=== PATIENT | female | born 1995 | race Caucasian/White ===

== ENCOUNTER → 2018-02-16 11:55 | Outpatient (CLI) | payer OTHER, SELFPAY ==
[2018-02-16 13:39] LABS: HIV - WCH Non-Reactive (Nonreactive)
[2018-02-16 16:22] LABS: Probe Check PASS
[2018-02-16 16:40] LABS: Chlamydia Trachomatis by PCR POSITIVE (Negative)
[2018-02-17 07:49] LABS: Neisserai gonorrhoeae by PCR Negative (Negative); Sample Adequacy Control PASS; Specimen Processing Control PASS
[2018-02-18 08:12] LABS: HCV Quant. RNA PCR HCV Not Detected IU/mL (.)
[2018-02-18 11:28] LABS: HEPATITIS B SURFACE AG Negative (Negative); HSV 1 IgG < 0.91 index (0.00-0.90); HSV 2 IgG < 0.91 index (0.00-0.90)
[2018-02-20 05:01] LABS: Rapid Plasmin Reagin (RPR) NONREACTIVE (NONREACTIVE)
== END ==
PROVIDERS: Visit Provider Nurse Practitioner Women's Health
DX: Z11.3 Encounter for screening for infections with a predominantly sexual mode of transmission (principal)
CPT/HCPCS: 36415; 86592; 86695; 86696; 86703; 87340; 87491; 87522; 87591

== ENCOUNTER → 2018-02-16 19:22 | Outpatient (CLI) | payer OTHER, SELFPAY ==
[2018-02-20 13:07] LABS: HPV Reflexed? NOT INDICATED
== END ==
PROVIDERS: Visit Provider Nurse Practitioner Women's Health
DX: Z12.4 Encounter for screening for malignant neoplasm of cervix (principal); Z11.3 Encounter for screening for infections with a predominantly sexual mode of transmission
CPT/HCPCS: 87491; 87591; 88175; G0145

== ENCOUNTER → 2018-06-08 14:21 | Outpatient (CLI) | payer OTHER, SELFPAY ==
[2018-06-08 15:42] LABS: Absolute Lymphocyte Count 2.33 X10^3/ul (0.83-4.51); Absolute Neutrophil Count 1.6 X10^3/uL (2.0-7.7); Basophil# 0.03 X10^3/uL; Basophil% 0.6 % (0-1); Eosinophils% 2.1 % (0-5); Hematocrit 39.6 % (37-47); Lymphocyte # 2.33 X10^3/ul (4.0); Lymphocyte % 48.3 % (19-41); Mean Corp Hgb Conc 32.8 g/gl (32-36); Mean Corpuscular Volume 88.4 fL (81-99); Mean Platelet Vol. 11.8 fl (6.2-12.0); Monocyte# 0.76 X10^3/uL; Monocyte% 15.8 % (0-10); Neutrophil % 33.2 % (47-70); Platelet Count 214 K/mm3 (150-450); RBC Distribution Width SD 42.1 fl (35.1-43.9); Red Blood Count 4.48 M/mm3 (4.2-5.4); White Blood Count 4.8 K/mm3 (4.4-11.0)
[2018-06-08 15:44] LABS: POSITIVE COUNT NO; POSITIVE DIFFERENTIAL NO; POSITIVE MORPHOLOGY NO
[2018-06-08 16:10] LABS: Ferritin 40 ng/mL (8-252); T4 Free Direct 0.96 ng/dL (0.76-1.46); Thyroid Stim Hormone (TSH) 3.43 uIU/mL (0.358-3.74)
== END ==
PROVIDERS: Visit Provider Physician Assistant
DX: L64.8 Other androgenic alopecia (principal); L21.8 Other seborrheic dermatitis
CPT/HCPCS: 36415; 82728; 84439; 84443; 85025

== ENCOUNTER → 2019-06-02 11:41 | Outpatient (CLI) | payer OTHER, SELFPAY ==
--- NOTE | 2019-06-02 11:43 | US_ITS ---
STUDY: FIRST TRIMESTER OBSTETRICAL ULTRASOUND REASON FOR EXAM: Female, 24 years old. Dates. LMP: February 12, 2019. TECHNIQUE: TECHNICAL QUALITY: Adequate. PRIOR ULTRASOUND: None. FINDINGS: There is visualization of a single gestational sac in a normal intrauterine position. The mean sac diameter (MSD) measures 4.5 cm, indicating an estimated gestational age (EGA) of 10 weeks, 2 days. The gestational sac shape is within normal limits. There is a visualized yolk sac. The yolk sac measures 5 mm. The placenta is non-visualized. There is visualization of a live embryo. The crown-rump length (CRL) measures 3.7 cm, indicating an estimated gestational age (EGA) of 10 weeks, 4 days. There is demonstrated cardiac activity with a heart rate of 174 bpm. The estimated gestation age (EGA) by LMP is 15 weeks, 5 days. The estimated date of delivery (AMAIRANI) by LMP is November 19, 2019. The estimated gestation age (EGA) by US is 10 weeks, 3 days. The estimated date of delivery (AMAIRANI) by US is December 26, 2019. The uterus measures 11.8 x 8.6 x 5.6 cm. There is no demonstrated uterine fibroid. The cervix is closed. The right ovary measures 3.3 x 2.0 x 2.4 cm. There are several small peripheral follicles of the right ovary without a dominant cyst. There is no visualized right adnexal mass or complex lesion. The left ovary measures 2.7 x 2.5 x 1.4 cm. There are a few small follicles of the left ovary without a dominant cyst. There is no visualized left adnexal mass or complex lesion. There is no fluid in the cul de sac. Incidental note of punctate debris floating in the urinary bladder. US/Init OB < 14Wks US IMPRESSION: 1. Single living intrauterine with estimated gestational age of 10 weeks, 3 days. This is moderately behind the expected age by given LMP. Estimated delivery by today's study is December 26, 2019. 2. Unremarkable ovaries. 3. Incidental note of punctate debris floating in the urinary bladder. Electronically Signed: Micah Karimi MD at 14:01 EDT , Service support ,
== END ==
LOC: US 11:42
PROVIDERS: Referring Provider Obstetrics & Gynecology; Visit Provider Obstetrics & Gynecology
DX: Z78.9 Other specified health status (principal)
CPT/HCPCS: 76801

== ENCOUNTER → 2019-06-16 09:19 | Outpatient (CLI) | payer OTHER, SELFPAY ==
[2019-06-16 09:16] VITALS: BMI 20.5
[2019-06-16 09:44] LABS: Absolute Neutrophil Count 5.1 X10^3/uL (2.0-7.7); Basophil# 0.04 X10^3/uL; Basophil% 0.5 % (0-1); Eosinophils% 1.4 % (0-5); Hematocrit 34.9 % (37-47); Hemoglobin 12.3 g/dL (12.0-15.0); Lymphocyte % 19.2 % (19-41); Mean Corp Hgb Conc 35.2 g/dL (32-36); Mean Corpuscular Hgb 30.1 pg (27.0-32.0); Mean Corpuscular Volume 85.3 fL (81-99); Mean Platelet Vol. 10.7 fl (6.2-12.0); Monocyte# 0.66 X10^3/uL; Monocyte% 9.1 % (0-10); NRBC Flagged by Analyzer 0 % (0-5); Neutrophil # 5.06 X10^3/uL (2.7-7.7); Neutrophil % 69.4 % (47-70); Platelet Count 219 K/mm3 (150-450); RBC Distribution Width CV 13.3 % (11.6-14.6); RBC Distribution Width SD 40.9 fl (35.1-43.9); Red Blood Count 4.09 M/mm3 (4.2-5.4); White Blood Count 7.3 K/mm3 (4.4-11.0)
[2019-06-16 11:13] LABS: HIV - WCH Non-Reactive (Nonreactive); Hepatitis B Surface Antigen Non-Reactive (Nonreactive); Rubella IgG 193.9 IU/mL
[2019-06-16 18:28] LABS: Chlamydia Trachomatis by PCR Negative (Negative); Neisserai gonorrhoeae by PCR Negative (Negative); Probe Check PASS; Sample Adequacy Control PASS; Specimen Processing Control PASS
[2019-06-18 01:38] LABS: Rapid Plasmin Reagin (RPR) NONREACTIVE (NONREACTIVE)
== END ==
PROVIDERS: Nurse Practitioner Women's Health; Referring Provider Obstetrics & Gynecology; Visit Provider Obstetrics & Gynecology
DX: Z34.00 Encounter for supervision of normal first pregnancy, unspecified trimester (principal)
CPT/HCPCS: 36415; 85025; 86592; 86703; 86762; 86850; 86900; 86901; 87086; 87340; 87491; 87591

== ENCOUNTER → 2019-08-16 15:57 | Outpatient (CLI) | payer OTHER, SELFPAY ==
[2019-08-13 08:43] VITALS: BMI 20.5
--- NOTE | 2019-08-16 15:59 | US_ITS ---
STUDY: SECOND AND THIRD TRIMESTER OBSTETRICAL ULTRASOUND REASON FOR EXAM: Female, 24 years old anatomy LMP: TECHNIQUE: Transabdominal TECHNICAL QUALITY: Adequate. PRIOR ULTRASOUND: June 02, 2019 FINDINGS: There is a single intrauterine fetus. The fetus is in a cephalic presentation. There is demonstrated cardiac activity with a heart rate of 147 bpm. There is a normal amniotic fluid volume.. The placenta is anterior There are Grade 0 placental changes. The cervix measures 3.3 cm in length. The bilateral adnexal regions are normal. BIOMETRY: BPD: 5 cm: 21 weeks, 2 days HC: 18.9 cm: 21 weeks, 2 days AC: 16 cm: 21 weeks, 1 days FL: 3.8 cm: 22 weeks, 1 days CI: 0.77 FL/BPD: 0.75 FL/HC: FL/AC: 0.24 HC/AC: 1.18 age by current US: 21 weeks, 4 days. AMAIRANI by current US: December 23, 2019. Estimated weight: 428 grams, +/- 63 grams, 40 %. age by prior US: 21 weeks, 1 days. AMAIRANI by prior US: December 26, 2019. Age by LMP: 21 weeks, 4 days. AMAIRANI by LMP: December 23, 2019. ANATOMY: Cranium: Normal lateral ventricles. Normal choroid plexus. Normal cerebellum. Normal cisterna magna. Normal face, nose and lips. Chest: Normal 4-chamber heart. Abdomen/Pelvis: Normal diaphragm. Normal stomach. Normal abdominal wall. Normal cord insertion. Normal 3 vessel cord. Normal kidneys. Normal bladder. Spine: Normal cervical spine. Normal thoracic spine. Normal lumbar spine. Normal sacrum. Extremities: Normal bilateral upper extremities. Normal bilateral lower extremities. US/OB Anatomy Scan IMPRESSION: Viable intrauterine gestation approximately 21-22 weeks gestational age. No gross anomalies at this time Electronically Signed: Ray Richardson MD at 18:53 EDT , Service support ,
== END ==
PROVIDERS: Referring Provider Obstetrics & Gynecology; Visit Provider Obstetrics & Gynecology
DX: Z36.89 Encounter for other specified antenatal screening (principal)
CPT/HCPCS: 76805

== ENCOUNTER → 2019-10-05 10:09 | Outpatient (CLI) | payer OTHER, SELFPAY ==
[2019-10-05 10:01] VITALS: BMI 20.5
[2019-10-05 10:58] LABS: Absolute Lymphocyte Count 1.74 X10^3/uL (0.83-4.51); Absolute Neutrophil Count 8.3 X10^3/uL (2.0-7.7); Basophil# 0.05 X10^3/uL; Basophil% 0.4 % (0-1); Eosinophil# 0.14 X10^3/uL; Eosinophils% 1.3 % (0-5); Hematocrit 34.3 % (37-47); Hemoglobin 11.6 g/dL (12.0-15.0); Lymphocyte # 1.74 X10^3/ul (4.0); Lymphocyte % 15.6 % (19-41); Mean Corp Hgb Conc 33.8 g/dL (32-36); Mean Corpuscular Hgb 30.3 pg (27.0-32.0); Mean Corpuscular Volume 89.6 fL (81-99); Monocyte# 0.77 X10^3/uL; Monocyte% 6.9 % (0-10); NRBC Flagged by Analyzer 0 % (0-5); Neutrophil % 74.5 % (47-70); Platelet Count 183 K/mm3 (150-450); RBC Distribution Width CV 13.1 % (11.6-14.6); RBC Distribution Width SD 42.8 fl (35.1-43.9); Red Blood Count 3.83 M/mm3 (4.2-5.4); White Blood Count 11.1 K/mm3 (4.4-11.0)
[2019-10-05 11:02] LABS: Glucose Challenge Gest 1H 50g 141 mg/dL (70-140)
== END ==
PROVIDERS: Nurse Practitioner Women's Health; Referring Provider Obstetrics & Gynecology; Visit Provider Obstetrics & Gynecology
DX: Z34.00 Encounter for supervision of normal first pregnancy, unspecified trimester (principal)
CPT/HCPCS: 36415; 82950; 85025

== ENCOUNTER → 2019-10-12 09:58 | Outpatient (CLI) | payer OTHER, SELFPAY ==
[2019-10-05 10:01] VITALS: BMI 20.5
[2019-10-12 11:46] LABS: Glucose GTT-Gestation. Fasting 72 mg/dL (<105)
[2019-10-12 11:47] LABS: Glucose GTT-Gestational 1 Hr 143 mg/dL (<190)
[2019-10-12 13:16] LABS: Glucose GTT-Gestational 2 Hr 99 mg/dL (<165)
[2019-10-12 14:07] LABS: Glucose GTT-Gestational 3 Hr 73 L (<145)
== END ==
PROVIDERS: Referring Provider Nurse Practitioner Women's Health; Visit Provider Nurse Practitioner Women's Health
DX: O99.810 Abnormal glucose complicating pregnancy (principal); Z3A.00 Weeks of gestation of pregnancy not specified
CPT/HCPCS: 36415; 82951; 82952

== ENCOUNTER → 2019-11-30 | Outpatient (CLI) | payer OTHER, MEDICAID, SELFPAY ==
[2019-11-30 13:24] VITALS: BMI 20.5
== END | disposition home or self-care (01) ==
LOC: LABSPEC 15:44
PROVIDERS: Visit Provider Obstetrics & Gynecology
DX: Z34.93 Encounter for supervision of normal pregnancy, unspecified, third trimester (principal)
CPT/HCPCS: 87081

== ENCOUNTER → 2019-12-17 14:30 | Outpatient (CLI) | payer OTHER, MEDICAID, SELFPAY ==
[2019-12-17 11:11] VITALS: BMI 20.5
--- NOTE | 2019-12-17 14:37 | US_ITS ---
STUDY: SECOND AND THIRD TRIMESTER OBSTETRICAL ULTRASOUND - LIMITED REASON FOR EXAM: Female, 24 years old. Gross. LMP: February 12, 2019 PRIOR ULTRASOUND: August 16, 2019 and June 02, 2019 TECHNIQUE: Transabdominal TECHNICAL QUALITY: Adequate. FINDINGS: There is a single intrauterine fetus. The fetus is in a cephalic presentation. There is demonstrated cardiac activity with a heart rate of 139 bpm. There is a normal amniotic fluid volume. The largest amniotic fluid pocket measures 3.93 cm. The amniotic fluid index (JAVIER) is 9.48 cm. The placenta is anterior in location and is not low lying. There are Grade 2 placental changes. The cervix is obscured BIOMETRY: BPD: 8.74 cm: 35 weeks, 2 days HC: 32.5 cm: 36 weeks, 5 days AC: 33.49 cm: 37 weeks, 2 days FL: 7.21 cm: 36 weeks, 6 days Age by LMP: 44 weeks, 2 days. AMAIRANI by LMP: November 19, 2019. age by prior US: 39 weeks, 0 days. AMAIRANI by prior US: December 26, 2019. age by current US: 37 weeks, 1 days. AMAIRANI by current US: January 06, 2020. Estimated weight: 3082 grams, +/- 456 grams, 23 percentile. US/OB Limited With Biometrics IMPRESSION: 1. Live single intrauterine at 37 weeks, 1 day. AMAIRNAI is January 06, 2020. 2. Greater than one week behind expected gestational age by initial ultrasound. 3. EFW 3082 g. 4. JAVIER 9.48 cm. 5. Anterior grade 2 placenta. 6. Vertex presentation. Electronically Signed: Mak Parr DO at 23:47 EST Tel [phone], Service support ,
== END ==
PROVIDERS: Referring Provider Obstetrics & Gynecology; Visit Provider Obstetrics & Gynecology
DX: Z34.02 Encounter for supervision of normal first pregnancy, second trimester (principal)
CPT/HCPCS: 76816

== ENCOUNTER 2019-12-23 17:20 | Inpatient (IN) | payer OTHER, MEDICAID, SELFPAY ==
[2019-12-23 14:11] VITALS: BMI 20.5
[2019-12-23 17:38] VITALS: BMI 27.6
[2019-12-23] MEDS: Lactated Ringers 1,000 ML 50 ML IV (17:40)
--- NOTE | 2019-12-23 17:46 | PCM.HPOB.BLA ---
- Problem List (1) Abnormal glucose affecting Status: Acute Comment: Normal 3hr (2) Oligohydramnios antepartum Status: Acute (3) Status: Acute Qualifiers: Weeks of gestation: 38 weeks Qualified Code(s): Z3A.38 - 38 weeks gestation of Comment: Declines carrier and genetic screen, afp screening. Anatomy US normal (4) Supervision of normal first Status: Acute Qualifiers: Trimester: second trimester Qualified Code(s): Z34.02 - Encounter for supervision of normal first , second trimester Comment: PRR girl AMAIRANI: 12/25/19 BF: Padilla (5) Uterine size-date discrepancy in third trimester Status: Acute Comment: growth us nl History and Physical Date of Admission: 12/23/19 Intake Vital Signs 12/23/19 Height 5 ft 8 in 12/23/19 Weight: 183 lb 12/23/19 BMI 27.8 12/23/19 BP 122/88 H Intake Visit Reasons: 39 WK OB Chief Complaint: est ob Is patient in pain?: No Allergies No Known Allergies Allergy (Verified 12/23/19 13:58) Medications vitamin#30 30 mg iron-10 mg iron-folic acid 1 mg-omg3 capsule cap PO cap 07/16/19 [History Confirmed 12/23/19] Last Menstral Period: 02/12/19 Zika: Zika virus screening: Negative : No PFSH PFSH Medical History Alopecia (Acute) Surgical History No significant past medical history (Acute) Social History (Updated 12/23/19 @ 16:[address] Brenda Ramirez MD) Smoking Status: Never smoker second hand exposure: Yes alcohol intake: current details: social substance use type: does not use caffeine: Yes what type of physical activity do you participate in: walking frequency: 1-2 times per week seatbelt use: always do you feel safe at home: Yes additional social history: [facility] Pregancy History 2 Elective abortions 1 Hx Para Spontaneous abortions Hx # Term Pregnancies Ectopic pregnancies Hx # Pregnancies Multiple births # of living children 0 HPI 39 WK OB: Details: CATERINA WATSON is a 24 year old who presents for routine OB visit. denies vb lof admits good fm. bedside JAVIER performed and 5 cm seen. gorwt scan last week nl growth with 9 cm javier. OB Visit AMAIRANI Calculator Estimated Delivery Date Method Current WG Current Estimate 12/25/19 Ultrasound #1 39w 5d Expected Delivery Route/Plan Labor Preferences- labor support person: Padilla pain management options preferred: epidural cut cord/dad catch: yes : yes PP control planned: [] discussed possible routes of delivery and associated risks: [] special requests: [] Specific Issue/Plans flu vaccine: yes tdap vaccine: no rhogam: na LARC form signed: yes Problem list reviewed and updated with the most current plan of care details and appropriate orders placed. Relevant counseling for the gestational age provided. Continue routine care and follow up unless otherwise noted in visit notes/problem list details Initial Weight: 132 lb Date EGA Weight BP Urine Prot Glucose FHR FuHt Pres Dilation Effaced St Visit Note 06/16/19 12w 4d 132 lb (+0 oz) 120/78 162 NOB. Resolving nausea. No bleeding. 07/16/19 16w 6d 139 lb 8 oz (+7 lb 8 oz) 124/82 160 no vb some cramping 08/13/19 20w 6d 152 lb 8 oz (+20 lb 8 oz) 120/80 Negative Negative 154 NO FM yet. No anatomy US yet-next week. NO VB, LOF 09/17/19 25w 6d 162 lb 6 oz (+30 lb 6 oz) 122/78 Negative Negative 142 25 Good FM. No VB, LOF 10/05/19 28w 3d 165 lb 2 oz (+33 lb 2 oz) 130/87 Negative Negative 135 28 Good FM. No VB, LOF. @8 wk labs. Declines tdap. 10/20/19 30w 4d 169 lb 4 oz (+37 lb 4 oz) 114/75 Negative Negative 135 30 no vb lof good fm no regular ctx 11/02/19 32w 3d 172 lb 6 oz (+40 lb 6 oz) 113/77 Negative Negative 140 30 S- no vb lof good fm no regular ctx 11/16/19 34w 3d 171 lb 8 oz (+39 lb 8 oz) 121/74 Negative Negative 160 34 SM- no vb lof good fm no regular ctx 11/30/19 36w 3d 174 lb (+42 lb) 120/80 Negative Negative 150 36 Sm- no vb lof good fm no reg ctx gbs today 12/10/19 37w 6d 176 lb (+44 lb) 116/68 Negative Negative 140 37 Cephalic SM- no vb lof good fm no regular ctx 12/17/19 38w 6d 181 lb (+49 lb) 100/60 Negative Negative 140 36 Cephalic SM- no vb lof good fm no regular ctx get growth us 12/23/19 39w 5d 183 lb (+51 lb) 122/88 140 38 Cephalic 1.5 70 -1 SM- no vb lof good fm no regular ctx Notes Visit Date: 12/23/19 ??No visit notes to display Visit Date: 12/17/19 ??No visit notes to display Visit Date: 12/10/19 ??No visit notes to display Visit Date: 11/30/19 ??No visit notes to display Visit Date: 11/16/19 ??No visit notes to display Visit Date: 11/02/19 ??No visit notes to display Visit Date: 10/20/19 ??No visit notes to display Visit Date: 10/05/19 ??Good FM. No VB, LOF. @8 wk labs. Declines tdap. ??WILLIAM Daniel on 10/05/19 Visit Date: 09/17/19 ??Good FM. No VB, LOF ??WILLIAM Daniel on 09/17/19 Visit Date: 08/13/19 ??NO FM yet. No anatomy US yet-next week. NO VB, LOF ??WILLIAM Daniel on 08/13/19 Visit Date: 07/16/19 ??no vb some cramping ??Brenda Ramirez MD on 07/16/19 Visit Date: 06/16/19 ??NOB. Resolving nausea. No bleeding. ??WILLIAM Daniel on 06/16/19 ACOG First Trimester First Trimester: Desire for , Alcohol, Tobacco Cessation, Illicit/Recreational Drug/Substance Use, Intimate Partner Violence, Barriers to care, Unstable Housing, Communication Barriers, Environmental/Work Hazards, Anticipated Course of Care, Toxoplasmosis Precations, Use of Any medications, Sexual activity, Exercise, Dental Care, Sauna/Hot tub use, Seat Belt use, Childbirth classes/Hospital facilities, , Travel, Indications for US and Screening for Aneuploidy Second Trimester Second Trimester: Signs and Symptoms of Labor, Selecting a care provider, Reproductive Life Planning, Care Planning, Tobacco Cessation, Depression/Anxiety and Intimate Partner Violence Third Trimester Third Trimester: Pain Management Plans, Labor support person(s), Immediate Larc, Movement Monitoring and Feeding Yes ; discussed Trial of Labor after Counseling or discussed Circumcision preference Diagnostics Diagnostics Diagnostics Gest Glucose Tolerance MG/DL 10/12/19 Glucose 1 Hr 50 gm 141 mg/dL (70-140) H 10/05/19 Hgb 11.6 g/dL (12.0-15.0) L 10/05/19 Hct 34.3 % (37-47) L 10/05/19 Details: HIV: Urine Culture: Sequential Screen: NIPT Screen: ROS Const Reports system reviewed and no additional complaints, except as docu Card Reports system reviewed and no additional complaints, except as docu Resp Reports system reviewed and no additional complaints, except as docu GI Reports system reviewed and no additional complaints, except as docu, Reports nausea Reports system reviewed and no additional complaints, except as docu Musc Reports system reviewed and no additional complaints, except as docu Exam Const General: cooperative, healthy appearing, comfortable, anxious HENMT Head: normal to inspection Nose: external nose normal Face and sinus: normal facial exam Neck Neck: normal visual inspection, full ROM, no lymphadenopathy Thyroid: thyroid normal Chest Chest palpation & inspection: normal inspection of the chest Resp Effort & Inspection: normal respiratory effort GI Inspection: normal to inspection Palpation: soft, other (gravid uterus) Other: vertex and appropriate size for gestational age Other: Cervical Exam: Extrem General: pedal edema Assessment & Plan Problems 1. Abnormal glucose affecting O99.810 Normal 3hr 2. Supervision of normal first Z34.00 PRR girl AMAIRANI: 12/25/19 BF: Padilla 3. Z34.90 Declines carrier and genetic screen, afp screening. Anatomy US normal 4. Uterine size-date discrepancy in third trimester O26.843 growth us nl 5. Oligohydramnios antepartum O41.00X0 Plan javier 5 cm plan IOL today Patient presents IOL, plan management for , pitocin/AROM after FB. Pain management: plans epidural. GBS negative. Management of any complications: oligo I have reviewed the [facility] and made any clinically relevant updates. Coding Level of Care Code OB Routine Diagnoses Abnormal glucose affecting O99.810 Supervision of normal first Z34.00 Z34.90 Uterine size-date discrepancy in third trimester O26.843 Oligohydramnios antepartum O41.00X0
[2019-12-23] MEDS: 0.9% Normal Saline Single 100 ML IV.SOLN. IY (17:51)
[2019-12-23 17:58] LABS: Absolute Lymphocyte Count 1.76 X10^3/uL (0.83-4.51); Absolute Neutrophil Count 6.6 X10^3/uL (2.0-7.7); Basophil# 0.03 X10^3/uL; Basophil% 0.3 % (0-1); Eosinophil# 0.07 X10^3/uL; Eosinophils% 0.8 % (0-5); Hematocrit 35.3 % (37-47); Hemoglobin 12.2 g/dL (12.0-15.0); Lymphocyte # 1.76 X10^3/ul (4.0); Lymphocyte % 18.9 % (19-41); Mean Corp Hgb Conc 34.6 g/dL (32-36); Mean Corpuscular Hgb 29.8 pg (27.0-32.0); Mean Corpuscular Volume 86.1 fL (81-99); Mean Platelet Vol. 11.8 fl (6.2-12.0); Monocyte# 0.83 X10^3/uL; Monocyte% 8.9 % (0-10); NRBC Flagged by Analyzer 0 % (0-5); Neutrophil # 6.56 X10^3/uL (2.7-7.7); Neutrophil % 70.3 % (47-70); Platelet Count 179 K/mm3 (150-450); RBC Distribution Width CV 13.3 % (11.6-14.6); RBC Distribution Width SD 41.5 fl (35.1-43.9); White Blood Count 9.3 K/mm3 (4.4-11.0)
[2019-12-23] MEDS: Oxytocin 30 units/NS 500 ml 30 UNITS/500 ML IV.SOLN IV (19:30)
[2019-12-24] MEDS: Acetaminophen 325 MG Tablet PO (04:13)
[2019-12-24] MEDS: Lactated Ringers 500 ML 999 ML IV ×2 (04:45→07:09)
[2019-12-24] MEDS: fentaNYL-bupivacaine (epidural) 100 ML BAG EPIDURAL (05:38)
[2019-12-24] MEDS: Lactated Ringers 1,000 ML 200 ML IV (06:33)
[2019-12-24] MEDS: Ondansetron 4 MG/2 ML Vial IV (06:40)
[2019-12-24] MEDS: Oxytocin 30 units/NS 500 ml 30 UNITS/500 ML IV.SOLN 334 UNITS IV (09:25)
--- NOTE | 2019-12-24 09:39 | OP.PCM_ITS ---
Problem List (1) Abnormal glucose affecting Status: Acute Comment: Normal 3hr (2) Oligohydramnios antepartum Status: Acute (3) Status: Acute Qualifiers: Weeks of gestation: 38 weeks Qualified Code(s): Z3A.38 - 38 weeks gestation of Comment: Declines carrier and genetic screen, afp screening. Anatomy US normal (4) Supervision of normal first Status: Acute Qualifiers: Trimester: second trimester Qualified Code(s): Z34.02 - Encounter for supervision of normal first , second trimester Comment: PRR girl AMAIRANI: 12/25/19 BF: Padilla (5) Uterine size-date discrepancy in third trimester Status: Acute Comment: growth us nl Vaginal Delivery Maternal Presentation: Medically Indicated Induction iol oligo Method of Induction: Pitocin, [facility] Reason for Induction: - - oligo Amniotic Membrane Rupture Type: Artificial Amniotic Fluid Description: Clear Final AMAIRANI: 12/25/19 Gestational age: 39 Weeks and 6 Days Date of Procedure: 12/24/19 Pre-Operative Diagnosis: iol oligo Post-Operative Diagnosis: same Surgery/ Procedure Performed: Spontaneous Vaginal Delivery Type of Anesthesia: Epidural Description of Procedure: Patient began pushing and delivered the head in the DHARMESH presentation. The head was delivered atraumatically. The anterior and posterior shoulders delivered without complication followed by the rest of the and the infant was placed on the maternal abdomen. Delayed cord clamping was employed for approximately 60 seconds. Cord was clamped and cut and gentle traction was applied to the cord and the placenta delivered spontaneously immediately following it was noted to be intact with three-vessel cord. The perineum and vagina were inspected and noted to have a small first-degree perineal laceration that was repaired in the usual fashion with 3-0 Vicryl Rapide. EBL was 200 cc. Patient and tolerated delivery well. Presentation: DHARMESH Placental Delivery Description: Spontaneous Placenta Disposition: [facility] Cord Vessel Description: 3 Vessels Cord Entanglement: None Estimated Blood Loss: 200 A gender: Female Episiotomy Description: None Laceration: Perineal Extension/lac, 1st degree Medications given after delivery: IV Pitocin Complications: None Multi Select Codes - Urinary/Genital Urinary/Genital CPT Codes: 70543 Vaginal Delivery [facility]
[2019-12-24] MEDS: Naproxen 250 MG Tablet 500 MG PO (16:18)
[2019-12-24 16:20] VITALS: BP 107/62; PULSE 90; TEMP 37.4; O2SAT 96
[2019-12-24 20:30] VITALS: BP 110/76; PULSE 79; RESP 14; TEMP 36.6; O2SAT 98
[2019-12-24 23:38] VITALS: BP 116/69; PULSE 88; RESP 16; TEMP 36.6
[2019-12-25 03:13] VITALS: BP 118/64; PULSE 105; RESP 14; TEMP 36.8
[2019-12-25] MEDS: Acetaminophen 500 MG Tablet 1000 MG PO (03:48)
--- NOTE | 2019-12-25 07:38 | DCINST_ITS ---
Discharge Diet: No Restrictions Discharge Activity: Return to Normal Activity, May not drive while taking narcotic pain medications., May Shower May resume sexual activity in: 4-6 weeks Call your doctor if your incision/area has: Continuous Slow Oozing, Sudden Increased Bleeding, Increased Pain/ Swelling, Increased Redness, Foul Smelling Discharge Additional Instructions: If you experience any of the following, contact your healthcare provider. * Bleeding that soaks a pad every hour for 2 hours * Fever 100.4 or higher * Unrelieved incision or abdominal pain * Swelling, redness, discharge or bleeding from your incision or episiotomy site * Your incision begins to separate * Problems urinating (including inability to urinate or burning while urinating). * Visual changes * Severe headache * Flu-like symptoms * Pain or redness in one of both of your breasts * Pain, warmth, tenderness or swelling in your legs, especially the calf area * Frequent nausea and vomiting * Symptoms of depression or anxiety If you experience any of the following, call 911 or go to the nearest Emergency Room. * Chest pain * Problems breathing * Seizure activity * Partial or complete paralysis of a body part, slurred speech, weakness or drooping of the face, or a sudden inability to walk or hold your balance Allergies/Adverse Reactions: Allergies No Known Allergies Allergy (Verified 12/23/19 17:38) Medications to take at Discharge vitamin#30 30 mg iron-10 mg iron-folic acid 1 mg-omg3 capsule 1 cap PO DAILY cap 07/16/19 Please Follow Up With: Brenda Ramirez MD - [phone] When: Call to make an appointment with your doctor in 6 weeks. If you had elevated Blood pressure or 4th degree laceration you will need to be seen in 2 weeks. Primary Care Physician: Care Physician,No Primary [Primary Care Provider] - Test Results: Test results from this visit will be discussed in further detail at your follow- up appointment, if applicable.
--- NOTE | 2019-12-25 07:38 | PCM.PN.OB ---
Subjective: doing well no complaints pain controlled no CP SOB N V ambulating well tolerating po lochia moderate, going well - Physical Exam Vitals/I&O's: Vital Signs Temp Pulse Resp BP Pulse Ox 98.2 F 105 H 14 118/64 98 12/25/19 03:13 12/25/19 03:13 12/25/19 03:13 12/25/19 03:13 12/24/19 20:30 Oxygen Delivery Method Room Air Weight: 181 lb 7.047 oz Body Mass Index (BMI) 27.6 Intake and Output for Last 24 Hours 12/23/19 12/24/19 12/25/19 23:59 23:59 23:59 Intake Total 17.13 / .13 4297.24 / 4297.24 Output Total 400 / 400 Balance . / . 3897.24 / 3897.24 General: Alert, Oriented x3 Current Medications Acetaminophen (Tylenol) 1,000 mg PO Q8H PRN PRN PRN Reason: Pain Score 1-3/10 Last Admin: 12/25/19 03:48 Dose: 1,000 mg Documented by: Bisacodyl (Dulcolax) 10 mg RECTAL UD PRN PRN Reason: If no BM Dibucaine (Dibucaine) 1 applic TOPICAL TID PRN PRN; Protocol PRN Reason: Discomfort Hydrocortisone (Hytone) 1 applic TOPICAL TID PRN PRN; Protocol PRN Reason: Discomfort Methylergonovine Maleate (Methergine) 0.2 mg IM X1 PRN PRN Reason: Excess bleeding/uterine atony Naproxen (Naprosyn) 500 mg PO Q8H PRN PRN PRN Reason: Pain Score 1-3/10 Last Admin: 12/24/19 16:18 Dose: 500 mg Documented by: Ondansetron HCl (Zofran) 4 mg IV Q4H PRN PRN PRN Reason: Nausea Oxycodone HCl (Oxyir) 5 - 10 mg PO Q4H PRN PRN PRN Reason: Pain Score 4-10/10 Senna/Docusate Sodium (Senokot-S, Irma-Colace) 1 - 2 tablet PO DAILY PRN PRN PRN Reason: Constipation Simethicone (Mylicon) 80 mg PO PCHS PRN PRN Reason: Indigestion/Stomach pain Sodium Chloride () 5 - 15 ml IV UD PRN PRN Reason: SALINE FLUSH Medical Necessity - Tobacco Use Smoking Status: Never smoker Assessment/Plan All Active Problems (Last Reviewed 12/23/19 @ 13:58 by Heavenly Irby) Oligohydramnios antepartum (Acute) Uterine size-date discrepancy in third trimester (Acute) Abnormal glucose affecting (Acute) Supervision of normal first (Acute) (Acute) s/p PPD # 1 1. routine post delivery care 2. breast feeding- support given 3. rh positive 4. rubella immune
--- NOTE | 2019-12-25 07:38 | PCM.DCVAG ---
Discharge Diet: No Restrictions Discharge Activity: Return to Normal Activity, May not drive while taking narcotic pain medications., May Shower May resume sexual activity in: 4-6 weeks Call your doctor if your incision/area has: Continuous Slow Oozing, Sudden Increased Bleeding, Increased Pain/ Swelling, Increased Redness, Foul Smelling Discharge Additional Instructions: If you experience any of the following, contact your healthcare provider. Bleeding that soaks a pad every hour for 2 hours Fever 100.4 or higher Unrelieved incision or abdominal pain Swelling, redness, discharge or bleeding from your incision or episiotomy site Your incision begins to separate Problems urinating (including inability to urinate or burning while urinating). Visual changes Severe headache Flu-like symptoms Pain or redness in one of both of your breasts Pain, warmth, tenderness or swelling in your legs, especially the calf area Frequent nausea and vomiting Symptoms of depression or anxiety If you experience any of the following, call 911 or go to the nearest Emergency Room. Chest pain Problems breathing Seizure activity Partial or complete paralysis of a body part, slurred speech, weakness or drooping of the face, or a sudden inability to walk or hold your balance Allergies/Adverse Reactions: Allergies No Known Allergies Allergy (Verified 12/23/19 17:38) Medications to take at Discharge vitamin#30 30 mg iron-10 mg iron-folic acid 1 mg-omg3 capsule 1 cap PO DAILY cap 07/16/19 Please Follow Up With: Brenda Ramirez MD - [phone] When: Call to make an appointment with your doctor in 6 weeks. If you had elevated Blood pressure or 4th degree laceration you will need to be seen in 2 weeks. Primary Care Physician: Care Physician,No Primary [Primary Care Provider] - Test Results: Test results from this visit will be discussed in further detail at your follow-up appointment, if applicable.
[2019-12-25] MEDS: Naproxen 250 MG Tablet 500 MG PO (09:02)
[2019-12-25 10:00] VITALS: BP 111/65; PULSE 82; RESP 16; TEMP 37.1
[2019-12-25 15:38] VITALS: BP 123/84; PULSE 100; RESP 12; TEMP 36.8
--- NOTE | 2019-12-25 18:47 | NURSING ---
1715 Discharged to home with baby via wheelchair to car. Baby in carseat, pink, active. Pt states she wants to go home and feels good enough and able to care for herself and her baby.
== END 2019-12-25 17:15 | disposition home or self-care (01) | DRG 807 ==
PROVIDERS: Admitting Provider Obstetrics & Gynecology; Referring Provider Obstetrics & Gynecology; Visit Provider Obstetrics & Gynecology
DX: O41.03X0 Oligohydramnios, third trimester, not applicable or unspecified (principal); Z37.0 Single live birth; O70.0 First degree perineal laceration during delivery; O99.814 Abnormal glucose complicating childbirth; O26.843 Uterine size-date discrepancy, third trimester; Z3A.39 39 weeks gestation of pregnancy
CPT/HCPCS: 59025; 59050; 85025; 86850; 86900; 86901; 99218; J7120; G0378; J2405

== ENCOUNTER → 2021-03-20 | Outpatient (CLI) | payer MEDICAID, SELFPAY ==
[2021-03-20 13:41] VITALS: BMI 24.2
[2021-03-23 10:15] LABS: HPV Reflexed? NOT INDICATED
== END | disposition home or self-care (01) ==
LOC: LABSPEC 16:42
PROVIDERS: Referring Provider Nurse Practitioner Women's Health; Visit Provider Nurse Practitioner Women's Health
DX: Z12.4 Encounter for screening for malignant neoplasm of cervix (principal); N89.8 Other specified noninflammatory disorders of vagina; R30.0 Dysuria
CPT/HCPCS: 87070; 87077; 87086; 87205; 88175; G0145

== ENCOUNTER 2022-01-15 08:15 | Outpatient (CLI) | payer MEDICAID, SELFPAY ==
[2022-01-18 12:48] LABS: Gonococcus By Nucleic Acid AMP Negative (Negative)
[2022-01-18 12:50] LABS: Chlamydia By Nucleic Acid AMP Positive (Negative)
== END 2022-01-15 23:59 | disposition home or self-care (01) ==
LOC: LABSPEC 01-16 08:16
PROVIDERS: Visit Provider Nurse Practitioner Women's Health
DX: Z11.3 Encounter for screening for infections with a predominantly sexual mode of transmission (principal); N76.0 Acute vaginitis
CPT/HCPCS: 87070; 87205; 87491; 87591

== ENCOUNTER 2022-01-18 11:39 | Outpatient (CLI) | payer MEDICAID, SELFPAY ==
--- NOTE | 2022-01-18 11:40 | US_ITS ---
STUDY: ULTRASOUND OF THE FEMALE PELVIS - COMPLETE REASON FOR EXAM: Female, 26 years old. Pain LMP: 12/31/2021 TECHNIQUE: Transabdominal and Transvaginal TECHNICAL QUALITY: Adequate. COMPARISON: None. FINDINGS: The uterus is anteverted and is tilted to the left side of the pelvis. The uterus measures 9.3 x 6.8 x 3.4 cm. Normal uterine cervix. The endometrium measures 7 mm in thickness, and is heterogeneous (striated). There is no demonstrated endometrial mass. There is no demonstrated myometrial mass. I.U.D. - The patient does not have an I.U.D. The right ovary is visualized. The right ovary measures 1.9 x 1.8 x 2.2 cm. There is no right ovarian cyst or ovarian mass. There is no visualized right adnexal mass or complex lesion. There is normal arterial and normal venous vascularity. The left ovary is visualized. The left ovary measures 4.8 x 2.4 x 3.0 cm. There is a 2.9 cm simple cyst. There is normal arterial and normal venous vascularity. There is minimal fluid in the cul-de-sac. The bladder is sonographically normal US/Transvaginal Non- IMPRESSION: No suspicious sonographic findings, simple left ovarian cyst, no specific follow-up needed. Small amount of free fluid in the dependent pelvis Electronically Signed: Micah Dove MD at 17:20 EDT ,
--- NOTE | 2022-01-18 11:40 | US_ITS ---
STUDY: ULTRASOUND OF THE FEMALE PELVIS - COMPLETE REASON FOR EXAM: Female, 26 years old. Pain LMP: 12/31/2021 TECHNIQUE: Transabdominal and Transvaginal TECHNICAL QUALITY: Adequate. COMPARISON: None. FINDINGS: The uterus is anteverted and is tilted to the left side of the pelvis. The uterus measures 9.3 x 6.8 x 3.4 cm. Normal uterine cervix. The endometrium measures 7 mm in thickness, and is heterogeneous (striated). There is no demonstrated endometrial mass. There is no demonstrated myometrial mass. I.U.D. - The patient does not have an I.U.D. The right ovary is visualized. The right ovary measures 1.9 x 1.8 x 2.2 cm. There is no right ovarian cyst or ovarian mass. There is no visualized right adnexal mass or complex lesion. There is normal arterial and normal venous vascularity. The left ovary is visualized. The left ovary measures 4.8 x 2.4 x 3.0 cm. There is a 2.9 cm simple cyst. There is normal arterial and normal venous vascularity. There is minimal fluid in the cul-de-sac. The bladder is sonographically normal US/Pelvic (Non ) IMPRESSION: No suspicious sonographic findings, simple left ovarian cyst, no specific follow-up needed. Small amount of free fluid in the dependent pelvis Electronically Signed: Micah Dove MD at 17:20 EDT ,
== END 2022-01-18 23:59 | disposition home or self-care (01) ==
LOC: US 11:39
PROVIDERS: Referring Provider Nurse Practitioner Women's Health; Visit Provider Nurse Practitioner Women's Health
DX: N94.6 Dysmenorrhea, unspecified (principal)
CPT/HCPCS: 76830; 76856; 93976

== ENCOUNTER 2022-06-25 16:43 | Day surgery (SDC) | payer MEDICAID, SELFPAY ==
[2022-06-25] VITALS (11 sets, daily range): BP systolic 113–157; BP diastolic 62–99; PULSE 69–96; RESP 16–18; TEMP 36.6–37.2; O2SAT 94–100; BMI 21.1
--- NOTE | 2022-06-25 16:52 | CT_ITS ---
STUDY: CT ABDOMEN AND PELVIS WITHOUT CONTRAST REASON FOR EXAM: Female, 27 years old. Pain RADIATION DOSAGE (If Supplied By Facility): CTDIvol = ( 6.16 ) mGy, DLP = ( 293.99 ) mGycm TECHNIQUE: Transaxial images were obtained from the dome of the diaphragm to the symphysis pubis without oral contrast, and without intravenous contrast. Sagittal and coronal images were reconstructed. Individualized dose optimization techniques were used for this CT. COMPARISON: None. FINDINGS: The visualized lung bases are unremarkable. The visualized portions of the heart are within normal limits. Normal liver. Normal gallbladder and extrahepatic biliary system. Normal spleen. Normal pancreas. Normal bilateral adrenal glands. Punctate nonobstructing nephrolith. Normal left kidney. Normal visualized stomach. Normal small intestine. Normal colon. The appendix is visualized and appears normal. Normal abdominal aorta. Normal inferior vena cava. Normal retroperitoneum. Normal urinary bladder. Normal abdominal wall. Normal osseous structures. CT/Abdomen/Pelvis without Cont IMPRESSION: Punctate nonobstructing nephrolith on the right. No acute disease. Sensitivity limited without IV and oral contrast. Electronically Signed: Angel Luis Reynolds MD at 17:59 EDT ,
--- NOTE | 2022-06-25 16:53 | EDS_ITS ---
HPI HPI - GI History of Present Illness Chief Complaint: Abd Pain Detail of Chief Complaint: Abdominal pain that started about an hour ago Informant: patient Narrative Narrative: Patient presents the emergency department complaint of abdominal pain started about an hour ago. Patient was drying off after taking a shower and had sudden onset of severe lower abdomen pain. Pain somewhat positional worse with certain movements. She denies nausea or vomiting. She denies fevers. She denies recent illness otherwise. She is not had pain like this before. Pain does not radiate to her back. She denies urinary symptoms. Her last menstrual period was 5 days ago. Patient rates her pain an 8 out of 10. Prior similar symptoms: No PFSH PFSH Medical History (Updated 06/25/22 @ 20:[address] Emi Gruber, ) Alopecia Home Medications metronidazole 500 mg tablet 500 mg PO BID #14 tabs 01/15/22 [Rx Last Taken Unknown] tranexamic acid 650 mg tablet (Lysteda) 1,300 mg PO TID #60 tabs 01/15/22 [Rx Last Taken Unknown] doxycycline monohydrate 100 mg capsule 100 mg PO BID #28 caps 01/18/22 [Rx Last Taken Unknown] Allergy/AdvReac Type Severity Reaction Status Date / Time No Known Allergies Allergy Verified 06/25/22 16:44 Surgical History No significant past medical history Social History Smoking Status: Never smoker second hand exposure: Yes alcohol intake: current details: social substance use type: does not use caffeine: No what type of physical activity do you participate in: none seatbelt use: always do you feel safe at home: Yes additional social history: [facility]- Home health care ROS ROS ED Review of Systems ROS Unobtainable: other Constitutional Constitutional ED: Reports lethargy; Denies chills, fever(s), sweats or weight loss Eyes Eyes: Denies blurry vision, change in vision or diplopia ENT ENT ED: Denies rhinorrhea or sore throat Cardiovascular Cardiovascular: Denies chest pain, orthopnea or racing heartbeat Respiratory/Chest Respiratory/Chest: Denies cough, dyspnea, dyspnea on exertion, orthopnea or sputum Gastrointestinal Gastrointestinal: Reports abdominal pain; Denies diarrhea, nausea or vomiting Genitourinary Genitourinary ED: Denies dysuria, hematuria or urinary frequency Musculoskeletal Musculoskeletal: Denies arthralgias, back pain, myalgias or neck pain Integumentary Denies abscess, Abrasions or rash Neurologic Neurologic: Denies headache(s) or weakness Psychiatric Psychiatric: Denies anxiety, depression or suicidal thoughts Endocrine Endocrinology: Denies polydipsia, polyphagia or polyuria Hematologic/Lymphatic Hematologic/Lymphatic: Denies easy bleeding, easy bruising or lymphadenopathy Allergic/Immunologic Allergic/Immunologic ED: Denies mouth swelling, tongue swelling or urticaria EXAM Physical Exam Const Vital Signs: 06/25/22 16:43 06/25/22 19:09 Temperature 97.9 F Temperature Source Temporal Pulse Rate 82 Respiratory Rate 18 16 Blood Pressure 144/95 H Blood Pressure Mean 111 Pulse Ox 99 Oxygen Delivery Method Room Air Room Air Positive well nourished and well developed General Appearance ED: well developed and NAD HEENT Reports TM's clear and moist mucous membranes normocephalic and atraumatic; Negative for trauma or tenderness Tympanic Membrane ED: Yes TM's clear Eyes PERRL and EOMs intact bilaterally General Eye ED: Negative for pale conjunctiva or scleral icterus Neck no lymphadenopathy, supple and no JVD General: Negative for tenderness Chest Wall inspection of chest normal and palpation of chest normal Chest: Negative for tenderness Resp normal respiratory effort and clear to auscultation bilaterally Effort and Inspection: Negative for respiratory distress or pain with movement Auscultation: Negative for rhonchi, wheezes or diminished lung sounds Cardio regular rate, regular rhythm, S1 normal heart sound, S2 normal heart sound and no murmurs Peripheral Pulses: pulses 2+ throughout GI normal to inspection, nondistended, normoactive bowel sounds, soft to palpation, non-distended and no masses GI Narrative: Tenderness to palpation over right lower quadrant and suprapubic region with guarding. There is no rebound, rigidity, or peritoneal signs. Back/Spine no CVA tenderness and no thoracic nor lumbar tenderness Extremity normal to inspection General Extremety ED: Negative for edema General Extremity: Negative for edema Neuro oriented x3, CN's II-XII intact bilaterally, no sensory deficits noted and gait normal Sensorium / Orientation: awake, alert, oriented to person, oriented to place and oriented to time Motor Exam: strength 5/5 throughout and strength abnormal Psych mental status grossly normal Skin no rashes or lesions noted and no wounds MDM MDM MDM Narrative Medical decision making narrative: IV line established on arrival. Patient was medicated with morphine, Toradol, and Zofran. Patient had good pain relief with that but continues to complain of pain. Initially lab work obtained was unremarkable other than a slightly elevated white count of 11.9. Lactate was normal. Serum did return p ositive. She had had a CT scan of the abdomen pelvis without contrast that was essentially unremarkable. I did order a quantitative hCG and it was 1008. Urinalysis was unremarkable. Pelvic ultrasound obtained was read by radiology as no intrauterine . Complex right ovarian mass. Moderate complex fluid within the cul-de-sac may represent hemorrhage and ectopic not ruled out. At this point I did discuss case with [employer]ATOR physician on-call Dr. Cartagena who will present to the emergency department to evaluate patient for surgical intervention. Lab Data Attestation: I reviewed the patient's lab results. Labs: Laboratory Results - last 24 hr 06/25/22 06/25/22 06/25/22 17:00 17:00 17:00 WBC 11.9 H RBC 4.48 Hgb 13.4 Hct 38.9 MCV 86.8 MCH 29.9 MCHC 34.4 RDW Std Deviation 41.3 RDW Coeff of [place] 13.2 Plt Count 236 MPV 11.2 Immature Gran % (Auto) 0.400 Neut % (Auto) 77.1 H Lymph % (Auto) 15.6 L [place] % (Auto) 5.6 Eos % (Auto) 0.8 Baso % (Auto) 0.5 Absolute Neuts (auto) 9.2 H Absolute Lymphs (auto) 1.86 Nucleated RBC % 0 Sodium 141 Potassium 3.7 Chloride 108 H Carbon Dioxide 27.0 Anion Gap 6 BUN 15 Creatinine 0.76 Estim Creat Clear Calc 114.86 Est GFR (MDRD) Af Amer 118 Est GFR (MDRD) Non-Af 97 BUN/Creatinine Ratio 19.6 Glucose 102 Lactic Acid 0.7 Calcium 9.1 HCG, Quant Serum , Qual Urine Color Urine Clarity Urine pH Ur Specific [place] Urine Protein Urine Glucose (UA) Urine Ketones Urine Occult Blood Urine Nitrite Urine Bilirubin Urine Urobilinogen Ur Leukocyte Esterase Urine RBC Urine WBC Ur Squamous Epith Cells Ur Transition Epith Cell Urine Bacteria Urine Mucus Blood Type 08/06/25/22 06/25/22 17:00 17:00 18:57 WBC RBC Hgb Hct MCV MCH MCHC RDW Std Deviation RDW Coeff of [place] Plt Count MPV Immature Gran % (Auto) Neut % (Auto) Lymph % (Auto) [place] % (Auto) Eos % (Auto) Baso % (Auto) Absolute Neuts (auto) Absolute Lymphs (auto) Nucleated RBC % Sodium Potassium Chloride Carbon Dioxide Anion Gap BUN Creatinine Estim Creat Clear Calc Est GFR (MDRD) Af Amer Est GFR (MDRD) Non-Af BUN/Creatinine Ratio Glucose Lactic Acid Calcium HCG, Quant 1008 H Serum , Qual POSITIVE H Urine Color Straw Urine Clarity Clear Urine pH 7.0 Ur Specific [place] 1.010 Urine Protein Negative Urine Glucose (UA) Normal Urine Ketones Negative Urine Occult Blood Negative Urine Nitrite Negative Urine Bilirubin Negative Urine Urobilinogen Normal Ur Leukocyte Esterase Negative Urine RBC 0 SEEN Urine WBC 0 SEEN Ur Squamous Epith Cells 0-5 SEEN Ur Transition Epith Cell 0 SEEN Urine Bacteria 0 SEEN Urine Mucus 0 SEEN Blood Type 06/25/22 19:05 WBC RBC Hgb Hct MCV MCH MCHC RDW Std Deviation RDW Coeff of [place] Plt Count MPV Immature Gran % (Auto) Neut % (Auto) Lymph % (Auto) [place] % (Auto) Eos % (Auto) Baso % (Auto) Absolute Neuts (auto) Absolute Lymphs (auto) Nucleated RBC % Sodium Potassium Chloride Carbon Dioxide Anion Gap BUN Creatinine Estim Creat Clear Calc Est GFR (MDRD) Af Amer Est GFR (MDRD) Non-Af BUN/Creatinine Ratio Glucose Lactic Acid Calcium HCG, Quant Serum , Qual Urine Color Urine Clarity Urine pH Ur Specific [place] Urine Protein Urine Glucose (UA) Urine Ketones Urine Occult Blood Urine Nitrite Urine Bilirubin Urine Urobilinogen Ur Leukocyte Esterase Urine RBC Urine WBC Ur Squamous Epith Cells Ur Transition Epith Cell Urine Bacteria Urine Mucus Blood Type O POSITIVE Radiography Diagnostic Testing: Clinical Impression(s) from Imaging Studies Abdomen/Pelvis CT 06/25/22 16:52 IMPRESSION: Punctate nonobstructing nephrolith on the right. No acute disease. Sensitivity limited without IV and oral contrast. Electronically Signed: Angel Luis Reynolds MD at 17:59 EDT Reading Location ID and State: [address] [place] [address] , Service support , Obstetrics Ultrasound 06/25/22 17:55 IMPRESSION: No intrauterine . Complex right ovarian mass. Moderate complex fluid within the cul-de-sac may represent hemorrhage. Ectopic not excluded. Debris noted within the bladder may represent hemorrhage or infection. Electronically Signed: Angel Luis Reynolds MD at 20:13 EDT Reading Location ID and State: [facility] [place] , Service [place] , Discharge Plan Triage Chief Complaint: Abd Pain ED Provider: Emi Gruber Dx/Rx/DC Orders Clinical Impression: Abdominal pain, Ectopic Prescriptions: No Action tranexamic acid [Lysteda] 650 mg tablet 1,300 mg PO TID Qty: 60 2RF metronidazole 500 mg tablet 500 mg PO BID Qty: 14 0RF doxycycline monohydrate 100 mg capsule 100 mg PO BID Qty: 28 0RF Primary Care Provider: Care Physician,No Primary Referrals: Care Physician,No Primary [Primary Care Provider] - Disposition Disposition: Acute Care [facility]
[2022-06-25] MEDS: Ondansetron 4 MG/2 ML Vial IV (17:04)
[2022-06-25] MEDS: Morphine 4 MG/ML Syringe IV (17:04)
[2022-06-25] MEDS: Ketorolac 15 MG/ML Vial IV (17:05)
[2022-06-25] MEDS: 0.9% Normal Saline 1,000 ML 125 ML IV (17:06)
[2022-06-25 17:17] LABS: Absolute Lymphocyte Count 1.86 X10^3/uL (0.83-4.51); Absolute Neutrophil Count 9.2 X10^3/uL (2.0-7.7); Basophil# 0.06 X10^3/uL; Basophil% 0.5 % (0-1); Eosinophil# 0.09 X10^3/uL; Eosinophils% 0.8 % (0-5); Hematocrit 38.9 % (37-47); Hemoglobin 13.4 g/dL (12.0-15.0); Lymphocyte # 1.86 X10^3/ul (0.83-4.51); Lymphocyte % 15.6 % (19-41); Mean Corp Hgb Conc 34.4 g/dL (32-36); Mean Corpuscular Hgb 29.9 pg (27.0-32.0); Mean Corpuscular Volume 86.8 fL (81-99); Mean Platelet Vol. 11.2 fl (6.2-12.0); Monocyte# 0.66 X10^3/uL; Monocyte% 5.6 % (0-10); NRBC Flagged by Analyzer 0 % (0-5); Neutrophil # 9.17 X10^3/uL (2.7-7.7); Neutrophil % 77.1 % (47-70); Platelet Count 236 K/mm3 (150-450); RBC Distribution Width CV 13.2 % (11.6-14.6); RBC Distribution Width SD 41.3 fl (35.1-43.9); Red Blood Count 4.48 M/mm3 (4.2-5.4); White Blood Count 11.9 K/mm3 (4.4-11.0)
[2022-06-25 17:29] LABS: Anion Gap 6 (5-15); BUN 15 mg/dL (7-18); BUN/Creat Ratio 19.6 RATIO (10-20); Calcium,Total 9.1 mg/dL (8.5-10.1); Chloride 108 mmol/L (98-107); Creatinine, Serum 0.76 mg/dL (0.55-1.02); EST Glomerular Filtration Rate 97 mL/min (>60); Est Glom Filt Rate - Afr Amer 118 mL/min (>60); Estimated Creatinine Clearance 114.86 ml/min; Glucose 102 mg/dL (74-106); Potassium 3.7 mmol/L (3.5-5.1); Sodium Level 141 mmol/L (136-145)
[2022-06-25 17:37] LABS: Lactic Acid 0.7 mmol/L (0.4-1.9)
[2022-06-25 17:48] LABS: Internal QC Validated? YES +Cl - CLEAR BKGD
[2022-06-25 17:49] LABS: Pregnancy, Serum, hCG Quali. POSITIVE Negative
--- NOTE | 2022-06-25 17:55 | US_ITS ---
We are attempting to reach an attending provider to discuss findings. An addendum with communication details will be sent when the communication is complete. STUDY: FIRST TRIMESTER OBSTETRICAL ULTRASOUND REASON FOR EXAM: Female, 27 years old abdominal pain--RLQ AND LOWER ABD LMP: 06/15/2022 TECHNIQUE: Transabdominal and Transvaginal TECHNICAL QUALITY: Adequate. PRIOR ULTRASOUND: 01/18/2022 FINDINGS: No intrauterine . The uterus measures 8.8 x 6.2 x 4 cm. There is no demonstrated uterine fibroid. The cervix is closed. Endometrium measures 5 mm with a small amount of fluid. The right ovary measures 4.9 x 4.2 x 3.6 cm. There is no right ovarian cyst. Cystic mass measures 1.8 x 1.8 x 1.7 cm. Solid nodule measures 1.6 x 1.8 x 1.2 cm. Peripheral color blood flow and spectral flow noted. The left ovary measures 3.7 x 2.9 x 2.1 cm.. Simple cyst measuring 1.6 x 1.1 x 1 cm. There is no visualized left adnexal mass or complex lesion. Moderate fluid noted within the cul-de-sac containing internal echoes. Incidental note made of debris within the bladder. US/Transvaginal w/Preg US IMPRESSION: No intrauterine . Complex right ovarian mass. Moderate complex fluid within the cul-de-sac may represent hemorrhage. Ectopic not excluded. Debris noted within the bladder may represent hemorrhage or infection. Electronically Signed: Angel Luis Reynolds MD at 20:13 EDT ,
[2022-06-25 18:40] LABS: hCG Titer Quant., Serum 1008 mIU/mL (1-3)
[2022-06-25 19:01] LABS: Bacteria 0 SEEN /hpf (None Seen); Mucous, Urine 0 SEEN /hpf (<or=2+); Red Blood Cells-Urine 0 SEEN /hpf (0-5); White Blood Cells 0 SEEN /hpf (0-5)
[2022-06-25 19:05] LABS: Color, Urine Straw (Yellow); Glucose, Dipstick Normal (Normal); Ketone-Dipstick Negative (Negative); Leukocyte Esterase-Dipstick Negative /ul (Negative); Nitrite-Dipstick Negative (Negative); Occult Blood-Urine Negative /ul (Negative); Protein-Dipstick Negative (Negative); Urine Bilirubin Dipstick Negative (Negative); Urine Clarity Clear (Clear); Urine Urobilinogen Normal (Normal)
[2022-06-25 19:14] LABS: Squamous Epithelial Cells - UA 0-5 SEEN /hpf (5-10); Transitional Epithelial - Ur 0 SEEN /hpf (0-5)
--- NOTE | 2022-06-25 21:16 | DCINST_ITS ---
Discharge Instructions Diet Discharge Diet: No restrictions Activity Discharge Activity: Return to Normal Activity, May Not Drive (for two weeks or while taking narcotic pain medications.), May Shower and May Take a Tub Bath (in 7 days) May resume sexual activity in: 1 week Weight Bearing Status: Full weight bearing Dressing / Incision Call your doctor if you observe: Using more than 1 pad per hour, Shortness of breath, Chest pain and Uncontrolled pain Suture Line Care: Avoid Pulling/Pushing and Avoid Pinching/Bending Remove Dressing in: 1 week (if present) Cleanse incision/area with: Soap & Water and Keep Dressing Clean & Dry Follow Up Care Please Follow Up With: Phylicia Johnson DO When: Call to make an appointment with your doctor for a follow up incision check in 1-2 weeks. Test Results: Test results from this visit will be discussed in further detail at your follow- up appointment, if applicable. Discharge Plan Admission Admit Date/Time: 06/25/22 20:52 Primary Reason for Your Visit: laparoscopy for ectopic Attending Provider: Phylicia Johnson Primary Care Provider: Shayla Ag Primary Discharge Orders/Prescriptions Prescriptions: New ibuprofen 600 mg tablet 600 mg PO Q6H PRN (Reason: pain) 7 Days Qty: 28 0RF Rx Instructions: one tab every 6 hrs as needed for mild to moderate pain oxycodone-acetaminophen [Percocet] 5-325 mg tablet 1 tab PO Q4H PRN (Reason: pain) 7 Days Qty: 10 0RF Continued tranexamic acid [Lysteda] 650 mg tablet 1,300 mg PO TID Qty: 60 2RF metronidazole 500 mg tablet 500 mg PO BID Qty: 14 0RF doxycycline monohydrate 100 mg capsule 100 mg PO BID Qty: 28 0RF Referrals / Follow Up: Care PhysicianShayla Primary [Primary Care Provider] - Disposition Disposition (needs filled in before D/C Order can be placed): Home, Self Care
--- NOTE | 2022-06-25 21:19 | HP.PCM.OB_ITS ---
HPI - General General Date of Admission: 06/25/22 HPI Narrative CATERINA WATSON, is a 27 y/o who presents to [facility] ER with the complaint of right lower quadrant pain. She was initially worked up for an appy and CT was found to be negative. Her quantitative hcg level returned at a level of 1000 and there was noted to be moderate blood in the cul-de-sac with a 1 cm cystic lesion on the right adnexa. The patient is currently standing at bedside and states that her pain is a 7/10. She was unaware that she was and was not trying to get . She has a h/o STDs that are being treated and was told that she may have endometriosis due to a history of heavy menses and pelvic pain. [facility] Medical History (Updated 06/25/22 @ 21:[address] Phylicia Johnson, ) Alopecia Home Medications metronidazole 500 mg tablet 500 mg PO BID #14 tabs 01/15/22 [Rx Last Taken Unknown] tranexamic acid 650 mg tablet (Lysteda) 1,300 mg PO TID #60 tabs 01/15/22 [Rx Last Taken Unknown] doxycycline monohydrate 100 mg capsule 100 mg PO BID #28 caps 01/18/22 [Rx Last Taken Unknown] ibuprofen 600 mg tablet 600 mg PO Q6H PRN pain 7 days #28 tabs 06/25/22 [Rx Last Taken Unknown] oxycodone-acetaminophen 5 mg-325 mg tablet (Percocet) 1 tab PO Q4H PRN pain 7 days #10 tabs 06/25/22 [Rx Last Taken Unknown] Allergy/AdvReac Type Severity Reaction Status Date / Time No Known Allergies Allergy Verified 06/25/22 16:44 Surgical History No significant past medical history Social History Smoking Status: Never smoker second hand exposure: Yes alcohol intake: current details: social substance use type: does not use caffeine: No what type of physical activity do you participate in: none seatbelt use: always do you feel safe at home: Yes additional social history: [facility]- [place] [facility] History 2 Elective abortions 1 Hx Para 1 Spontaneous abortions Hx # Term Pregnancies Ectopic pregnancies Hx # Pregnancies Multiple births # of living children 1 Past Pregnancies Del. Date Name GA/Weeks Outcome Route Bth Weight Infant Gen Labor Lgth Anesthesia Del Anthonyatcastro Provider FOB 12/24/19 Flavia 39 live - full term Female epid ural [facility] JENNIFER Delivery Date: 12/24/19 Last Updated by: Luh Simons IOL [place] ROS Constitutional Constitutional: Denies change in weight, chills, fatigue, fever(s), headache(s), poor appetite or weakness Eyes Eyes: Denies blurry vision, change in vision, seeing flashes or spots in vision ENT HEENT: Denies dizziness, headache(s), loss taste/smell or sore throat Cardiovascular Cardiovascular: Denies chest pain, dizziness, dyspnea, irregular heart rhythm, leg edema, palpitations, rapid heart rate or vomiting Respiratory/Chest Respiratory/Chest: Denies chest tightness, cough, dyspnea or breast pain Gastrointestinal Gastrointestinal: Denies anorexia, constipation, cramping, diarrhea, hemorrhoids, vomiting or weight changes Genitourinary Genitourinary: Denies dysuria, flank pain, genital lesions, genital pain, urinary frequency or urinary urgency Musculoskeletal Musculoskeletal: Denies back pain, difficulty walking, joint pain, limited range of motion, muscle cramps or numbness Integumentary Integumentary: Denies lesions or unusual bruising Neurologic Neurologic: Denies abnormal movements, abnormal speech, dizziness, numbness, seizure-like activity or syncope Psychiatric Psychiatric: Denies anxiety, behavioral changes, change in appetite, change in libido, cognitive impairment, confusion, depression, difficulty concentrating, hallucinations or suicidal thoughts Endocrine Endocrinology: Denies excessive sweating, polydipsia or polyuria Hematologic/Lymphatic Hematologic/Lymphatic: Denies easy bleeding, easy bruising or lymphadenopathy Allergic/Immunologic Allergic/Immunologic: Denies itchy eyes, lip swelling, seasonal rhinorrhea, rhinitis, throat swelling, tongue swelling, eczemia, wheezing or asthma Vital Signs Vital Signs Vital Signs: 06/25/22 16:43 06/25/22 19:09 06/25/22 20:55 Temperature 97.9 F 98.5 F Temperature Source Temporal Oral Pulse Rate 82 94 Respiratory Rate 18 16 18 Blood Pressure 144/95 H 157/99 H Blood Pressure Mean 111 118 Blood Pressure Source Monitor Blood Pressure Position Semi-Fowlers Blood Pressure Location Right Arm Pulse Ox 99 94 Oxygen Delivery Method Room Air Room Air Room Air 06/25/22 21:06 Temperature 98.5 F Temperature Source Oral Pulse Rate 94 Respiratory Rate 18 Blood Pressure 157/99 H Blood Pressure Mean 118 Blood Pressure Source Blood Pressure Position Blood Pressure Location Pulse Ox 94 Oxygen Delivery Method Room Air Weight Weight: 143 lb Body Mass Index (BMI) 21.1 Physical Exam Const alert, oriented x3, no apparent distress and healthy appearing General Appearance: cooperative and anxious HEENT normocephalic Face and Sinus: normal facial exam Eyes EOMs intact bilaterally and no scleral icterus General Eye: normal appearance of both eyes Neck full ROM and supple Lymph Lymphatic: no lymphadenopathy noted Chest Chest: abnormal inspection of the chest Resp normal respiratory effort Effort and Inspection: able to speak in complete sentences Cardio regular rate GI soft to palpation Inspection: gravid Palpation: soft no CVA tenderness Narrative: there is right sided tenderness with guarding and some rebound Back/Spine no CVA tenderness Extremity normal to inspection, full ROM and no clubbing, cyanosis or edema General Extremity: Negative for calf tenderness or edema Skin Lesions: no lesions Rashes: no rashes Psych mental status grossly normal Labs Labs Labs: Blood Type O POSITIVE Antibody Screen NEGATIVE Hct 38.9 % (37-47) Hgb 13.4 g/dL (12.0-15.0) Obstetrics US Rubella IgG Antibody 193.9 IU/mL Hep Bs Antigen Non-Reactive (Nonreactive) Chlamydia DNA (ALFONSO) Positive (Negative) H Neisseria gonorrhoeae DNA ([place]SO) Negative (Negative) HIV 1&2 Antibody Non-Reactive (Nonreactive) Glucose 1 Hr 50 gm 141 mg/dL (70-140) H Rhogam given: No Assessment & Plan (1) Ectopic : COMMENT: likely ruptured but stable currently PLAN: After discussing the patient's diagnosis and treatment plan options, patient wishes to proceed with surgical management. The plan is to proceed with a laparoscopic evacuation of blood and ectopic, probable right salpingectomy, possible right oophorectomy. I have discussed with the patient the risks, benefits, and alternatives of the procedure which include but are not limited to risks of anesthesia, bleeding, infection, possible damage to bowel, bladder, or surrounding vasculature which could lead to additional surgery to evaluate any complications. Patient agrees to procedure and wishes to proceed. ACOG/uptodate references given for additional information regarding procedure.
[2022-06-25] MEDS: Bupivacaine 0.25% 30 ML Vial (21:42)
--- NOTE | 2022-06-25 21:45 | OV_PTH ---
PATIENT: CATERINA WATSON LOC: [facility] [place] U#:[id number] AGE/SX: ROOM: RE06/25/[address]: Dr. Phylicia Johnson DO : 1995 BED: DIS: 06/25/2022 SPEC #: [id number] RECD: 06/26/22 17:53 STATUS: YOHANNES MARIARemi #: [id number] ZANDRA: 06/25/22 21:[address]: Phylicia Johnson DEPT: SURGICAL PATHOLOGY RECD BY: Faith Reynolds ENTERED: 06/27/22 08:29 SP TYPE: OVARY OTHR DR: No Primary Care Phys Tissues: Right ovary Procedures: Surgery Specimen Level IV HEADER OPERATION: Laparoscopic removal ectopic , right oophorectomy PRE-OP DIAGNOSIS: Right ectopic TISSUE SUBMITTED: Right ovary MICROSCOPIC DIAGNOSIS Right ovary, oophorectomy: Follicular and corpus luteal cysts. AM:ajay 06/28/2022 MICROSCOPIC DESCRIPTION Slides are reviewed. GROSS DESCRIPTION Received in fixative is one container labeled with the patient's name and designated right ovary. The specimen consists of a glistening light lofton cystic ovary measuring 3.7 x 2.5 x 2 cm. Serial sections reveal multiple cysts ranging in size from 0.2 to 0.6 cm. Cafeteria Aide sections are submitted in four cassettes. / AM:ajay 06/27/2022 TC:5 CPT: 44237
--- NOTE | 2022-06-25 22:12 | PCM.OP.BLANK ---
Problems Associated Problem List Diagnoses (1) Abdominal pain: (2) Ectopic : Operative Report Date of Procedure: 06/25/22 Preoperative diagnosis: right adnexal ectopic , ruptured Postoperative diagnosis : right ovarian ruptured ectopic Surgeon: Dr. Phylicia Johnson DO Supervisor Special Services: CAMERON Matos anesthesia: general surgery: diagnostic laparoscopy, evacuation of blood from pelvis, right oophorectomy, removal of ectopic specimen: right ovary. complications: none EBL: 250cc Patient was taken in the operating room and was placed under general anesthesia was prepped and draped in normal sterile fashion in the dorsal lithotomy position. Bladder was drained of clear urine and SCDs were on preoperatively. Uterus was sounded and a uterine manipulator was placed after dilating. Attention was then paid to the abdominal portion of the procedure and the umbilicus was elevated with towel clamps and injected with Marcaine and after a 5 mm incision was made a 5 mm optical trocar was placed under direct visualization. A left lower quadrant 5 mm port and a 5 mm port on the right lower quadrant were placed under direct visualization. Uterus was well visualized and upon inspection of the pelvis and ectopic was seen in the right ovary. There was approximately 250cc of blood in the pelvis that was suction irrigated out. Using a LigaSure device, the ectopic was attempted to be removed first. Further bleeding was noted however and the procedure was aborted. The decision was made to stop her bleeding as soon as possible and the IP ligament was cauterized and cut. The ovarian ligament was cauterized and cut and the ovary was placed in a 5 mm bag. The 5 mm umbilical trocar was replaced with a 10 mm trocar and removed. The umbilical port site that was enlarged to allow passage of a laparoscopic bag. Excellent hemostasis was noted in the pelvis and the port site was closed through the fascia an 0 Vicryl. Liver and upper abdomen were visualized notably within normal limits and no other gross abnormalities were seen in the abdomen. All instruments removed from the abdomen after gas was desufflated. Port sites were closed with 3-0 Monocryl Steri's and op sites were applied. All instruments removed from the vagina and patient was awoken and taken recovery in stable condition. Multi Select Codes Urinary/Genital Urinary/Genital CPT Codes: 55113 Treat ectopic lapro w/ salpingectomy (right oophorectomy )
--- NOTE | 2022-06-25 22:22 | OP.PCM_ITS ---
Problems Associated Problem List Diagnoses (1) Abdominal pain: (2) Ectopic : Operative Report Date of Procedure: 06/25/22 Date of Procedure:?06/25/22 Preoperative diagnosis: right adnexal ectopic , ruptured Postoperative diagnosis : right ovarian ruptured ectopic Surgeon: Dr. Phylicia Johnson DO [employer] Author: CAMERON Matos anesthesia: general surgery: diagnostic laparoscopy, evacuation of blood from pelvis, right oophorectomy, removal of ectopic specimen: right ovary. complications: none EBL: 250cc Patient was taken in the operating room and was placed under general anesthesia was prepped and draped in normal sterile fashion in the dorsal lithotomy position.? Bladder was drained of clear urine and SCDs were on preoperatively.? Uterus was sounded and a uterine manipulator was placed after dilating.? Attention was then paid to the abdominal portion of the procedure and the umbilicus was elevated with towel clamps and injected with Marcaine and after a 5 mm incision was made a 5 mm optical trocar was placed under direct visualization.? A left lower quadrant 5 mm port and a 5 mm port on the right lower quadrant were placed under direct visualization.? Uterus was well visualized and upon inspection of the pelvis and ectopic was seen in the right ovary. There was approximately 250cc of blood in the pelvis that was suction irrigated out.? Using a LigaSure device, the ectopic was attempted to be removed first. Further bleeding was noted however and the procedure was aborted. The decision was made to stop her bleeding as soon as possible and the IP ligament was cauterized and cut. The ovarian ligament was cauterized and cut and the ovary was placed in a 5 mm bag. The 5 mm umbilical trocar was replaced with a 10 mm trocar and removed.? The umbilical port site that was enlarged to allow passage of a laparoscopic bag.? Excellent hemostasis was noted in the pelvis and the port site was closed through the fascia an 0 Vicryl.? Liver and upper abdomen were visualized notably within normal limits and no other gross abnormalities were seen in the abdomen.? All instruments removed from the abdomen after gas was desufflated.? Port sites were closed with 3-0 Monocryl Steri's and op sites were applied.? All instruments removed from the vagina and patient was awoken and taken recovery in stable condition.? Multi Select Codes Urinary/Genital Urinary/Genital CPT Codes:?92214 Treat ectopic lapro w/ salpingectomy (right oophorectomy )
== END 2022-06-25 23:45 | disposition home or self-care (01) ==
LOC: ED 20:42 → MS3 21:19 → SDC 06-26 01:00 → MS3 06-28 10:24
PROVIDERS: Emergency Provider Emergency Medicine; Visit Provider Obstetrics & Gynecology
PROC: 10T24ZZ Resection of Products of Conception, Ectopic, Percutaneous Endoscopic Approach (ICD-10-PCS; CPT 59150; principal; 2022-06-25 21:30)
DX: O00.201 Right ovarian pregnancy without intrauterine pregnancy (principal)
CPT/HCPCS: 59151; 00840; 74176; 76817; 80048; 81001; 83605; 84702; 84703; 85025; 86900; 86901; 88305; 99284; J7030; A4216; J2405

== ENCOUNTER → 2022-07-01 | Outpatient (CLI) | payer MEDICAID, SELFPAY ==
[2022-07-01 16:18] LABS: hCG Titer Quant., Serum 79 mIU/mL (1-3)
== END | disposition home or self-care (01) ==
LOC: PAVLAB 15:22
PROVIDERS: Referring Provider Obstetrics & Gynecology; Visit Provider Obstetrics & Gynecology
DX: O00.90 Unspecified ectopic pregnancy without intrauterine pregnancy (principal)
CPT/HCPCS: 36415; 84702

== ENCOUNTER → 2022-07-03 | Outpatient (CLI) | payer MEDICAID, SELFPAY ==
[2022-07-03 16:22] LABS: hCG Titer Quant., Serum 44 mIU/mL (1-3)
== END | disposition home or self-care (01) ==
LOC: PAVLAB 15:34
PROVIDERS: Referring Provider Obstetrics & Gynecology; Visit Provider Obstetrics & Gynecology
DX: O00.90 Unspecified ectopic pregnancy without intrauterine pregnancy (principal)
CPT/HCPCS: 36415; 84702

== ENCOUNTER → 2022-07-09 | Outpatient (CLI) | payer MEDICAID, SELFPAY ==
--- NOTE | 2022-07-09 15:11 | US_ITS ---
STUDY: ULTRASOUND OF THE FEMALE PELVIS - COMPLETE REASON FOR EXAM: Female, 27 years old. ectopic follow up ectopic 06-25. Right oophorectomy 06-26. 8 HCG -49 LMP: 06/15/2022 TECHNIQUE: Transvaginal TECHNICAL QUALITY: Adequate. COMPARISON: 06/25/2022. FINDINGS: The uterus is anteverted and is in a midline position. The uterus measures 9.5 x 6.9 x 4.7 cm. Normal uterine cervix. The endometrium measures 8 mm in thickness, and is hyperechoic. There is no demonstrated endometrial mass. There is no demonstrated myometrial mass. I.U.D. - The patient does not have an I.U.D. Right ovary is absent having been removed surgically. The left ovary is visualized. The left ovary measures 5.1 x 4.6 x 2.6 cm. Multiple follicles are visualized the largest measuring 2.0 x 1.4 cm. There is no visualized left adnexal mass or complex lesion. There is normal arterial and normal venous vascularity. There is mild fluid in the cul-de-sac. The pre void volume of the bladder was 506 ml. Polycystic ovary disease: No. US/Transvaginal Non- IMPRESSION: Mildly enlarged left ovary containing multiple follicles. Status post right oophorectomy. There is no mass identified in the right adnexa. No intrauterine gestation. Small amount of free fluid in the cul-de-sac which is a nonspecific finding often related rupture of ovarian cyst. Correlate with test as warranted. Electronically Signed: Grover Conner MD at 2:36 EDT Reading Location ID and State: [id number] / , Service support ,
--- NOTE | 2022-07-09 15:11 | US_ITS ---
STUDY: ULTRASOUND OF THE FEMALE PELVIS - COMPLETE REASON FOR EXAM: Female, 27 years old. ectopic follow up ectopic 06-25. Right oophorectomy 06-26. 8 HCG -49 LMP: 06/15/2022 TECHNIQUE: Transvaginal TECHNICAL QUALITY: Adequate. COMPARISON: 06/25/2022. FINDINGS: The uterus is anteverted and is in a midline position. The uterus measures 9.5 x 6.9 x 4.7 cm. Normal uterine cervix. The endometrium measures 8 mm in thickness, and is hyperechoic. There is no demonstrated endometrial mass. There is no demonstrated myometrial mass. I.U.D. - The patient does not have an I.U.D. Right ovary is absent having been removed surgically. The left ovary is visualized. The left ovary measures 5.1 x 4.6 x 2.6 cm. Multiple follicles are visualized the largest measuring 2.0 x 1.4 cm. There is no visualized left adnexal mass or complex lesion. There is normal arterial and normal venous vascularity. There is mild fluid in the cul-de-sac. The pre void volume of the bladder was 506 ml. Polycystic ovary disease: No. US/Pelvic (Non ) IMPRESSION: Mildly enlarged left ovary containing multiple follicles. Status post right oophorectomy. There is no mass identified in the right adnexa. No intrauterine gestation. Small amount of free fluid in the cul-de-sac which is a nonspecific finding often related rupture of ovarian cyst. Correlate with test as warranted. Electronically Signed: Grover Conner MD at 2:36 EDT Reading Location ID and State: [id number] / , Service support ,
== END | disposition home or self-care (01) ==
LOC: OPUS 15:07 → US 15:10
PROVIDERS: Visit Provider Obstetrics & Gynecology
DX: O09.90 Supervision of high risk pregnancy, unspecified, unspecified trimester (principal)
CPT/HCPCS: 76830; 76856

== ENCOUNTER → 2022-07-11 | Outpatient (CLI) | payer MEDICAID, SELFPAY ==
[2022-07-11 11:08] LABS: hCG Titer Quant., Serum 18 mIU/mL (1-3)
== END | disposition home or self-care (01) ==
LOC: LAB 09:24
PROVIDERS: Referring Provider Obstetrics & Gynecology; Visit Provider Obstetrics & Gynecology
DX: O00.90 Unspecified ectopic pregnancy without intrauterine pregnancy (principal)
CPT/HCPCS: 36415; 84702

== ENCOUNTER → 2023-01-15 | Outpatient (CLI) | payer MEDICAID, SELFPAY ==
[2023-01-18 11:09] LABS: Chlamydia By Nucleic Acid AMP Negative (Negative)
[2023-01-18 13:01] LABS: Gonococcus By Nucleic Acid AMP Negative (Negative)
== END | disposition home or self-care (01) ==
PROVIDERS: Visit Provider Registered Nurse
DX: N89.8 Other specified noninflammatory disorders of vagina (principal)
CPT/HCPCS: 87491; 87591

== ENCOUNTER 2023-04-01 15:21 | Emergency (ER) | payer MEDICAID, SELFPAY ==
[2023-04-01 15:22] VITALS: BP 127/87; PULSE 112; RESP 18; TEMP 36.4; O2SAT 98; BMI 21.5
--- NOTE | 2023-04-01 15:40 | EDS_ITS ---
HPI HPI - URI History of Present Illness Chief Complaint: Sore Throat Narrative Narrative: Female with sore throat for the last few days. She denies fever or chills. No cough or shortness of breath. She states she was seen at the urgent care yesterday and had a strep swab which was negative. She states that they did not give her anything to help with her sore throat. She does state that when she takes Tylenol her throat does get a little bit better but then comes back. She has not tried ibuprofen. Patient does report she is also been a little fatigued. She is not eating as much she normally does. She does not report any nausea or vomiting however. No urinary or vaginal complaints although the patient did states she had an a week ago. ROS ROS ED Constitutional Constitutional ED: Denies chills or fever(s) Eyes Eyes: Denies change in vision or diplopia ENT ENT ED: Reports sore throat; Denies rhinorrhea Cardiovascular Cardiovascular: Denies chest pain or palpitations Respiratory/Chest Respiratory/Chest: Reports cough and dyspnea Gastrointestinal Gastrointestinal: Denies abdominal pain or constipation Genitourinary Genitourinary ED: Denies dysuria or hematuria Musculoskeletal Musculoskeletal: Denies arthralgias or back pain Integumentary Denies abscess Neurologic Neurologic: Denies headache(s) PFSH PFSH Medical History Alopecia Home Medications dextromethorphan-benzocaine 5 mg-7.5 mg lozenges (Cepacol Sore Throat-Cough) 1 blaise PO Q4H PRN sore throat #16 ea 04/01/23 [Rx Last Taken Unknown] ondansetron 4 mg disintegrating tablet 4 mg PO Q8H PRN PRN Nausea #14 tabs 04/01/23 [Rx Last Taken Unknown] Allergy/AdvReac Type Severity Reaction Status Date / Time No Known Allergies Allergy Verified 04/01/23 15:24 Surgical History No significant past medical history Social History Smoking Status: Never smoker second hand exposure: Yes alcohol intake: current details: social substance use type: does not use caffeine: No what type of physical activity do you participate in: none seatbelt use: always do you feel safe at home: Yes additional social history: [facility] EXAM Physical Exam Const Vital Signs: 04/01/23 15:22 Temperature 97.5 F L Temperature Source Temporal Pulse Rate 112 H Respiratory Rate 18 Blood Pressure 127/87 H Blood Pressure Mean 100 Pulse Ox 98 Oxygen Delivery Method Room Air Positive well nourished General Appearance ED: Negative for pallor HEENT Reports moist mucous membranes Throat: posterior oropharynx abnormal Positive for edema and erythema; Negative for exudates Eyes PERRL Neck no lymphadenopathy and supple Resp normal respiratory effort Effort and Inspection: Negative for retractions Cardio Rate: regular rate Rhythm: regular rhythm Extremity normal to inspection and full ROM Neuro oriented x3 and CN's II-XII intact bilaterally Sensorium / Orientation: alert Motor Exam: strength 5/5 throughout Psych mental status grossly normal Skin General Skin Exam: Negative for jaundice or pallor MDM MDM MDM Narrative Medical decision making narrative: 27-year-old female with sore throat. Throat is a little bit of erythema but no exudates. She had already passed. Otherwise HEENT exam is unremarkable. Vital signs are stable and she is afebrile. I did offer to test her for COVID or influenza and she declines realizing that it would not change treatment. Patient given 10 mg Decadron p.o. She is also given ibuprofen and a Cepacol lozenge. She was given Cepacol lozenges for home as well as Zofran because she feels this might help her decreased p.o. intake. Return precautions were discussed. Patient discharged home in stable condition. Impression: 1. Viral pharyngitis Discharge Plan Triage Chief Complaint: Sore Throat ED Provider: Ron Barragan Dx/Rx/DC Orders Instructions: ED Pharyngitis, Viral Prescriptions: New ondansetron 4 mg tablet,disintegrating 4 mg PO Q8H PRN PRN (Reason: Nausea) Qty: 14 0RF Cepacol Sore Throat-Cough 5-7.5 mg lozenge 1 blaise PO Q4H PRN (Reason: sore throat) Qty: 16 0RF Stand Alone Forms: Work Status Form Primary Care Provider: Care Physician,No Primary Referrals: [facility] [Outside] - 3-5 Days Care Physician,No Primary [Primary Care Provider] - Disposition Disposition: Home, Self Care
[2023-04-01] MEDS: dexAMETHasone 10 MG/ML Vial PO.IVFORM (15:45)
[2023-04-01] MEDS: BENZOCAINE/MENTHOL 1 LOZENGE MUCOUS MEM (15:45)
[2023-04-01] MEDS: Ibuprofen 600 MG Tablet PO (15:45)
== END 2023-04-01 15:49 | disposition home or self-care (01) ==
PROVIDERS: Emergency Provider Student in an Organized Health Care Education/Training Program; Visit Provider Student in an Organized Health Care Education/Training Program
DX: J02.9 Acute pharyngitis, unspecified (principal)
CPT/HCPCS: 99283

== ENCOUNTER 2023-04-03 16:26 | Emergency (ER) | payer MEDICAID, SELFPAY ==
[2023-04-03 16:26] VITALS: BP 112/81; PULSE 99; RESP 17; TEMP 36.6; O2SAT 99; BMI 22.4
--- NOTE | 2023-04-03 17:58 | EDS_ITS ---
HPI <ROSARIO Loredo - Last Filed: 04/03/23 20:47> History of Present Illness Chief Complaint: Sore Throat Narrative Narrative: Patient presenting due to sore throat that she has had since Friday. She did go to urgent care on Friday where they performed a strep test that was negative. On Friday she came to the emergency department as her sore throat was worsening and they gave her Decadron and encouraged her to alternate Tylenol and ibuprofen for her pain. She reports that the Decadron did not help her and she feels that her sore throat is worsening still. She took a picture of her throat and sent it to a doctor who told her it looked like she had a peritonsillar abscess and wanted her to come in. She has had sweats and chills but denies any fever. She denies any cough, abdominal pain, nausea, and vomiting. PFSH <ROSARIO Loredo - Last Filed: 04/03/23 20:47> [facility] Medical History (Updated 04/03/23 @ 19:45 by ROSARIO Loredo) Alopecia Home Medications dextromethorphan-benzocaine 5 mg-7.5 mg lozenges (Cepacol Sore Throat-Cough) 1 blaise PO Q4H PRN sore throat #16 ea 04/01/23 [Rx Last Taken Unknown] ondansetron 4 mg disintegrating tablet 4 mg PO Q8H PRN PRN Nausea #14 tabs 04/01/23 [Rx Last Taken Unknown] Allergy/AdvReac Type Severity Reaction Status Date / Time No Known Allergies Allergy Verified 04/03/23 16:29 Surgical History No significant past medical history Social History Smoking Status: Never smoker second hand exposure: Yes alcohol intake: current details: social substance use type: does not use caffeine: No what type of physical activity do you participate in: none seatbelt use: always do you feel safe at home: Yes additional social history: [facility] ROS <ROSARIO Loredo - Last Filed: 04/03/23 20:47> ROS ED Constitutional Constitutional ED: Reports chills and sweats; Denies fever(s) ENT ENT ED: Reports rhinorrhea and sore throat Cardiovascular Cardiovascular: Denies chest pain Respiratory/Chest Respiratory/Chest: Denies cough or dyspnea Gastrointestinal Gastrointestinal: Denies abdominal pain, nausea or vomiting Genitourinary Genitourinary ED: Denies dysuria, urinary frequency or urinary urgency Musculoskeletal Musculoskeletal: Denies arthralgias or myalgias Integumentary Denies abscess, Abrasions or rash Neurologic Neurologic: Denies weakness EXAM <ROSARIO Loredo - Last Filed: 04/03/23 20:47> Physical Exam Const Vital Signs: 04/03/23 16:26 Temperature 97.8 F Temperature Source Temporal Pulse Rate 99 Respiratory Rate 17 Blood Pressure 112/81 H Blood Pressure Mean 91 Pulse Ox 99 Oxygen Delivery Method Room Air Positive well nourished, well developed and no apparent distress General Appearance ED: well developed HEENT Reports normocephalic, head/scalp atraumatic and TM's clear HEENT Narrative: Posterior pharynx erythemic with tonsillar exudates bilaterally, uvula midline, no trismus, no drooling, tolerating secretions, no evidence of peritonsillar abscess Tympanic Membrane ED: Yes TM's clear Mouth ED: Yes moist mucous membranes normal Eyes PERRL and EOMs intact bilaterally Neck full ROM and supple Chest Wall inspection of chest normal Resp normal respiratory effort and clear to auscultation bilaterally Cardio regular rate and regular rhythm GI soft to palpation, non-tender, non-distended and no masses Back/Spine normal ROM and normal to inspection Extremity normal to inspection and full ROM Neuro oriented x3, CN's II-XII intact bilaterally, moves all extremities, no focal motor deficits and no sensory deficits noted Sensorium / Orientation: awake and alert Psych mental status grossly normal and thought process normal Skin no rashes or lesions noted and no wounds <Dr. John Calvo DO - Last Filed: 04/03/23 23:55> Physical Exam Const Vital Signs: 04/03/23 16:26 Temperature 97.8 F Temperature Source Temporal Pulse Rate 99 Respiratory Rate 17 Blood Pressure 112/81 H Blood Pressure Mean 91 Pulse Ox 99 Oxygen Delivery Method Room Air MDM <ROSARIO Loredo - Last Filed: 04/03/23 20:47> MDM MDM Narrative Medical decision making narrative: Patient presenting today due to a sore throat. Vitals are unremarkable, she is afebrile. She has bilateral tonsillar exudates without any sign of peritonsillar abscess. She reports a history of mononucleosis, monoscreen today is negative. Patient already had a strep test performed on Friday that was negative, do not feel that this needs to be performed again. She is tolerating her secretions, she is able to swallow, although it hurts. She has been given a dose of Decadron here but she will be given strict return instructions and is to follow-up with her PCP. This is consistent with viral pharyngitis. I have given her supportive care measures and she is comfortable with plan. Lab Data Attestation: I reviewed the patient's lab results. Labs: Laboratory Results - last 24 hr 04/03/23 17:35 Monoscreen Negative <Dr. John Calvo, DO - Last Filed: 04/03/23 23:55> [facility] Lab Data Labs: Laboratory Results - last 24 hr 04/03/23 17:35 Monoscreen Negative Treatment and Re-Evaluation :: I have personally performed a face to face assessment of the patient and have reviewed the MELA Note. I performed a substantive portion of the visit including all aspects of the following. My schaeffer findings include: History: Patient presents with a sore throat that became worse today. Patient states it has gradually gotten worse over the past few days. Patient was seen for this recently and had a negative strep test done. Patient also had a recent COVID-19 antigen which was negative. Patient states her throat feels worse today. Patient denies any fevers or chills. Patient denies any cough. Exam: Vital signs are stable. Patient is afebrile. Patient is in no acute distress. Oral mucosa is pink and moist. Oropharynx is mildly erythematous. There are exudates noted on the tonsils bilaterally, worse on the right. There is no oropharyngeal edema noted. Airway is patent. Neck is supple. Trachea is midline. There is some mild anterior cervical lymphadenopathy that is tender to palpation. Heart was regular rate and rhythm. Lungs are clear and equal bilaterally. Abdomen is soft and nontender. Medical Decision Making: Differential diagnosis includes mononucleosis and viral pharyngitis. Monotest will be obtained to assess for infectious mononucleosis. Monotest was negative. Patient was given a dose of Decadron here. Patient was instructed to continue Cepacol lozenges as needed. Patient was instructed to follow-up with her primary care physician in 5 to 7 days. Patient was instructed to take Tylenol or ibuprofen as needed for any pain or fevers. Patient understood and was agreeable with the plan. All questions were answered. Discharge Plan Triage Chief Complaint: Sore Throat ED Midlevel Provider: Maribell May ED Provider: John Calvo Dx/Rx/DC Orders Clinical Impression: Acute viral pharyngitis Instructions: Self-Care for Sore Throats, ED Pharyngitis, Viral Prescriptions: No Action ondansetron 4 mg tablet,disintegrating 4 mg PO Q8H PRN PRN (Reason: Nausea) Qty: 14 0RF Cepacol Sore Throat-Cough 5-7.5 mg lozenge 1 blaise PO Q4H PRN (Reason: sore throat) Qty: 16 0RF Primary Care Provider: Care Physician,No Primary Referrals: Care Physician,No Primary [Primary Care Provider] - Activity Restrictions/Additional Instructions: Please follow-up with your PCP, Disposition Disposition: Home, Self Care Discharge Date/Time: 04/03/23 20:10
[2023-04-03 19:33] LABS: Internal QC Validated? YES +Cl - CLEAR BKGD; Monotest Negative (Negative)
[2023-04-03] MEDS: dexAMETHasone 4 MG Tablet 6 MG PO (20:06)
== END 2023-04-03 20:10 | disposition home or self-care (01) ==
PROVIDERS: Physician Assistant; Emergency Provider Emergency Medicine; Visit Provider Emergency Medicine
DX: J02.9 Acute pharyngitis, unspecified (principal)
CPT/HCPCS: 86308; 99284; A4216

== ENCOUNTER 2023-04-30 10:50 | Day surgery (SDC) | payer MEDICAID, SELFPAY ==
[2023-04-30] VITALS (13 sets, daily range): BP systolic 94–116; BP diastolic 35–80; PULSE 70–146; RESP 12–18; TEMP 35.7–36.7; O2SAT 97–100; BMI 22.0
--- NOTE | 2023-04-30 11:13 | US_ITS ---
STUDY: FIRST TRIMESTER OBSTETRICAL ULTRASOUND REASON FOR EXAM: Female, 27 years old vaginal bleed -- 4 wks post medical AB, increasing bleeding, r/oPOC . Patient status post right salpingooophorectomy. LMP: Unavailable. TECHNIQUE: Transvaginal TECHNICAL QUALITY: Adequate. PRIOR ULTRASOUND: None. FINDINGS: There is no demonstrated intrauterine gestational sac. There is no demonstrated yolk sac. The placenta is non-visualized. The uterus measures 11 cm x 6.2 cm x 5.1 cm. There is no demonstrated uterine fibroid. The cervix is closed. The endometrium is thickened measuring 25.1 mm. It is of an irregular heterogeneous echotexture. Retained products of conception should be ruled out. The patient is status post right oophorectomy. The left ovary measures 3.3 cm x 1.9 cm x 2.1 cm. There is no left ovarian cyst. There is no visualized left adnexal mass or complex lesion. There is no fluid in the cul de sac. US/Transvaginal w/Preg US IMPRESSION: Heterogeneous thickening of the endometrium measuring 25.1 mm. Retained products of conception should be ruled out. Electronically Signed: Curtis Valero MD at 14:38 EDT ,
--- NOTE | 2023-04-30 11:16 | ED.VIS.FEGU ---
HPI HPI - Female History of Present Illness Chief Complaint: Vag Bleeding Narrative Narrative: G4, P1 presents increasing vaginal bleeding starting 3 days ago today increasing clots while she is on commode. No lightheaded symptoms. No anticoagulations. Reports 4 weeks post medical . Initial bleeding that resolved. She is having cramping today in the pelvis. 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 States medications obtained from [facility]. She is followed by Polina Gracia. Prior similar symptoms: No PFSH PFSH Medical History (Updated 04/30/23 @ 15:[address] Alexx Melvin DO) Alopecia Home Medications dextromethorphan-benzocaine 5 mg-7.5 mg lozenges (Cepacol Sore Throat-Cough) 1 blaise PO Q4H PRN sore throat #16 ea 04/01/23 [Rx Last Taken Unknown] ondansetron 4 mg disintegrating tablet 4 mg PO Q8H PRN PRN Nausea #14 tabs 04/01/23 [Rx Last Taken Unknown] Allergy/AdvReac Type Severity Reaction Status Date / Time No Known Allergies Allergy Verified 04/03/23 16:29 Surgical History No significant past medical history Social History Smoking Status: Never smoker second hand exposure: Yes alcohol intake: current details: social substance use type: does not use caffeine: No what type of physical activity do you participate in: none seatbelt use: always do you feel safe at home: Yes additional social history: [facility] [place] [facility] ED Constitutional Constitutional ED: Denies chills, fever(s) or sweats Eyes Eyes: Denies change in vision ENT ENT ED: Denies dysphagia or sore throat Cardiovascular Cardiovascular: Denies chest pain, leg edema, palpitations or racing heartbeat Respiratory/Chest Respiratory/Chest: Denies cough, dyspnea or dyspnea on exertion Gastrointestinal Gastrointestinal: Denies abdominal pain, diarrhea, nausea or vomiting Genitourinary Genitourinary ED: Reports other Details: Vaginal bleeding with pelvic cramping ; Denies dysuria, hematuria or urinary frequency Musculoskeletal Musculoskeletal: Denies back pain, extremity pain or neck pain Integumentary Denies rash or wounds Neurologic Neurologic: Denies headache(s), paresthesias or weakness EXAM Physical Exam Const Vital Signs: 04/30/23 10:51 04/30/23 13:29 04/30/23 15:00 Temperature 96.2 F L Temperature Source Temporal Pulse Rate 146 H 80 120 H Respiratory Rate 18 16 18 Blood Pressure 99/35 L 94/77 102/68 Blood Pressure Mean 56 82 79 Pulse Ox 97 97 100 Oxygen Delivery Method Room Air Room Air Room Air Positive well nourished and well developed Constitutional Narrative: Nontoxic General Appearance ED: well developed and NAD HEENT Reports moist mucous membranes HEENT Narrative: No pallor of the conjunctiva ever normocephalic and atraumatic Eyes PERRL, EOMs intact bilaterally and conjunctivae normal General Eye ED: Yes normal appearance of both eyes Neck no lymphadenopathy and supple General: Negative for tenderness Chest Wall Chest: Negative for tenderness Resp normal respiratory effort and normal air movement Effort and Inspection: symmetric chest movement; Negative for respiratory distress Cardio regular rhythm and no murmurs Rate: tachycardic Peripheral Pulses: pulses 2+ throughout GI normal to inspection, nondistended, normoactive bowel sounds and non-tender Palpation: Negative for guarding or rebound tenderness present Narrative: Minimal pelvic tenderness, declines a pelvic exam at this time. Back/Spine no CVA tenderness and no thoracic nor lumbar tenderness Extremity normal to inspection General Extremety ED: Negative for edema or tenderness General Extremity: Negative for edema Neuro oriented x3 and no sensory deficits noted Sensorium / Orientation: awake and alert Skin no rashes or lesions noted and no wounds MDM MDM MDM Narrative Medical decision making narrative: Interventions / MDM: Differential diagnosis: Dysfunctional uterine bleeding, retained products of conception Diagnosis considered but do not suspect: N/A My EKG interpretation: N/A Imaging independently reviewed and interpreted by myself: Transvaginal ultrasound heterogenous uterus thickened endometrium 25 mm concerning for retained products of conception read by radiology External documents reviewed: N/A Test considered but not ordered:N/A ED course: Patient presented was tachycardic 146 blood pressure 99. Clinically was stable. She is given fluids, laboratory studies check type and screen sent. hCG quant returned at 1732. Cramping was given Tylenol. Ultrasound obtained noting concerns for retained products of conception. 1510 heart rate improving with fluids: Clinically stable blood pressure stable currently. She kept n.p.o. fluids continued. She did not eat today. I discussed with covering weapons officer naval activity Dr. Cartagena, we will keep her n.p.o. she will see in the emergency department for likely OR for D&C. Re-evaluation: stable Disposition discussed with patient/family/significant other: Patient Case discussed with consulting clinician: Gynecology, Dr. Cartagena This note was generated with UYA100 dictation software. It may contain incorrect words, spelling, and punctuation that were not noted in checking the note before signing. Lab Data Attestation: I reviewed the patient's lab results. Labs: Laboratory Results - last 24 hr 04/30/23 04/30/23 11:07 11:28 WBC 13.4 H RBC 4.16 L Hgb 12.1 Hct 36.4 L MCV 87.5 MCH 29.1 MCHC 33.2 RDW Std Deviation 45.3 H RDW Coeff of [place] 14.4 Plt Count 309 MPV 10.8 Immature Gran % (Auto) 0.400 Neut % (Auto) 69.5 Lymph % (Auto) 20.5 [place] % (Auto) 7.8 Eos % (Auto) 1.4 Baso % (Auto) 0.4 Absolute Neuts (auto) 9.3 H Absolute Lymphs (auto) 2.75 Nucleated RBC % 0 HCG, Quant 1732 H Blood Type O POSITIVE Antibody Screen NEGATIVE Radiography Diagnostic Testing: Clinical Impression(s) from Imaging Studies Obstetrics Ultrasound 04/30/23 11:13 IMPRESSION: Heterogeneous thickening of the endometrium measuring 25.1 mm. Retained products of conception should be ruled out. Electronically Signed: Curtis Valero MD at 14:38 EDT , Discharge Plan Dx/Rx/DC Orders Clinical Impression: Retained products of conception with hemorrhage, Abnormal vaginal bleeding Disposition Disposition: Acute Care [facility]
[2023-04-30 11:23] LABS: Absolute Lymphocyte Count 2.75 X10^3/uL (0.83-4.51); Absolute Neutrophil Count 9.3 X10^3/uL (2.0-7.7); Basophil# 0.06 X10^3/uL; Basophil% 0.4 % (0-1); Eosinophil# 0.19 X10^3/uL; Eosinophils% 1.4 % (0-5); Hematocrit 36.4 % (37-47); Hemoglobin 12.1 g/dL (12.0-15.0); Lymphocyte # 2.75 X10^3/ul (0.83-4.51); Lymphocyte % 20.5 % (19-41); Mean Corp Hgb Conc 33.2 g/dL (32-36); Mean Corpuscular Hgb 29.1 pg (27.0-32.0); Mean Corpuscular Volume 87.5 fL (81-99); Mean Platelet Vol. 10.8 fl (6.2-12.0); Monocyte# 1.05 X10^3/uL; Monocyte% 7.8 % (0-10); NRBC Flagged by Analyzer 0 % (0-5); Neutrophil # 9.28 X10^3/uL (2.7-7.7); Neutrophil % 69.5 % (47-70); Platelet Count 309 K/mm3 (150-450); RBC Distribution Width CV 14.4 % (11.6-14.6); RBC Distribution Width SD 45.3 fl (35.1-43.9); Red Blood Count 4.16 M/mm3 (4.2-5.4); White Blood Count 13.4 K/mm3 (4.4-11.0)
[2023-04-30] MEDS: 0.9% Normal Saline 1,000 ML 999 ML IV (11:25)
[2023-04-30 12:16] LABS: hCG Titer Quant., Serum 1732 mIU/mL (1-3)
[2023-04-30] MEDS: Acetaminophen 500 MG Tablet 1000 MG PO (13:17)
[2023-04-30] MEDS: 0.9% Normal Saline 1,000 ML 100 ML IV (15:07)
--- NOTE | 2023-04-30 15:39 | ED.VIS.FEGU ---
HPI HPI - Female History of Present Illness Chief Complaint: Vag Bleeding PFSH PFSH Medical History (Updated 04/30/23 @ 15:[address] Alexx Melvin DO) Alopecia Home Medications NK 04/30/23 [History Last Taken Unknown] Allergy/AdvReac Type Severity Reaction Status Date / Time No Known Allergies Allergy Verified 04/03/23 16:29 Surgical History No significant past medical history Social History Smoking Status: Never smoker second hand exposure: Yes alcohol intake: current details: social substance use type: does not use caffeine: No what type of physical activity do you participate in: none seatbelt use: always do you feel safe at home: Yes additional social history: [facility] EXAM Physical Exam Const Vital Signs: 04/30/23 10:51 04/30/23 13:29 04/30/23 15:00 Temperature 96.2 F L Temperature Source Temporal Pulse Rate 146 H 80 120 H Respiratory Rate 18 16 18 Blood Pressure 99/35 L 94/77 102/68 Blood Pressure Mean 56 82 79 Pulse Ox 97 97 100 Oxygen Delivery Method Room Air Room Air Room Air MDM MDM Lab Data Attestation: I reviewed the patient's lab results. Labs: Laboratory Results - last 24 hr 04/30/23 04/30/23 11:07 11:28 WBC 13.4 H RBC 4.16 L Hgb 12.1 Hct 36.4 L MCV 87.5 MCH 29.1 MCHC 33.2 RDW Std Deviation 45.3 H RDW Coeff of [place] 14.4 Plt Count 309 MPV 10.8 Immature Gran % (Auto) 0.400 Neut % (Auto) 69.5 Lymph % (Auto) 20.5 [place] % (Auto) 7.8 Eos % (Auto) 1.4 Baso % (Auto) 0.4 Absolute Neuts (auto) 9.3 H Absolute Lymphs (auto) 2.75 Nucleated RBC % 0 HCG, Quant 1732 H Blood Type O POSITIVE Antibody Screen NEGATIVE Radiography Diagnostic Testing: Clinical Impression(s) from Imaging Studies Obstetrics Ultrasound 04/30/23 11:13 IMPRESSION: Heterogeneous thickening of the endometrium measuring 25.1 mm. Retained products of conception should be ruled out. Electronically Signed: Curtis Valero MD at 14:38 EDT , Discharge Plan Dx/Rx/DC Orders Clinical Impression: Retained products of conception with hemorrhage, Abnormal vaginal bleeding Disposition Disposition: Acute Care Hospital [facility]
--- NOTE | 2023-04-30 16:40 | PCM.HP.OB ---
HPI - General HPI Narrative CATERINA WATSON, is a 27 y/o F who presents to [facility] ER with heavy vaginal bleeding after an elective medical . ER called to report that her pulse was 146bpm and bp was 99/35. She was given iv fluids and an ultrasound was performed. the us showed retained products of conception. Hemoglobin was noted to be stable, however her bleeding continued in ER to be heavy with clots. The decision was made to proceed with a suction d&C. [facility] Medical History (Updated 04/30/23 @ 16:[address] Phylicia Johnson DO) Alopecia Home Medications NK 04/30/23 [History Last Taken Unknown] Allergy/AdvReac Type Severity Reaction Status Date / Time No Known Allergies Allergy Verified 04/03/23 16:29 Surgical History No significant past medical history Social History Smoking Status: Never smoker second hand exposure: Yes alcohol intake: current details: social substance use type: does not use caffeine: No what type of physical activity do you participate in: none seatbelt use: always do you feel safe at home: Yes additional social history: [facility] [place] [facility] History 2 Elective abortions 1 Hx Para 1 Spontaneous abortions Hx # Term Pregnancies Ectopic pregnancies Hx # Pregnancies Multiple births # of living children 1 Past Pregnancies Del. Date Name GA/Weeks Outcome Route Bth Weight Gen Labor Lgth Anesthesia Del Locatn Provider FOB 12/24/19 Flavia 39 live - full term Female epidural [facility] JENNIFER Delivery Date: 12/24/19 Last Updated by: Luh Simons [facility] [place] ROS Constitutional Constitutional: Denies change in weight, fatigue, fever(s), headache(s), poor appetite or weakness Eyes Eyes: Denies blurry vision, change in vision, seeing flashes or spots in vision ENT HEENT: Denies dizziness, headache(s), loss taste/smell or sore throat Cardiovascular Cardiovascular: Denies chest pain, dizziness, dyspnea, irregular heart rhythm, leg edema, palpitations, rapid heart rate or vomiting Respiratory/Chest Respiratory/Chest: Denies chest tightness, cough, dyspnea or breast pain Gastrointestinal Gastrointestinal: Denies abdominal pain, anorexia, constipation, cramping, diarrhea, hemorrhoids, vomiting or weight changes Genitourinary Genitourinary: Denies dysuria, flank pain, genital lesions, genital pain, urinary frequency or urinary urgency Musculoskeletal Musculoskeletal: Denies back pain, difficulty walking, joint pain, limited range of motion, muscle cramps or numbness Integumentary Integumentary: Denies lesions or unusual bruising Neurologic Neurologic: Denies abnormal movements, abnormal speech, dizziness, numbness, seizure-like activity or syncope Psychiatric Psychiatric: Denies anxiety, behavioral changes, change in appetite, change in libido, cognitive impairment, confusion, depression, difficulty concentrating, hallucinations or suicidal thoughts Endocrine Endocrinology: Denies excessive sweating, polydipsia or polyuria Hematologic/Lymphatic Hematologic/Lymphatic: Denies easy bleeding, easy bruising or lymphadenopathy Allergic/Immunologic Allergic/Immunologic: Denies itchy eyes, lip swelling, seasonal rhinorrhea, rhinitis, throat swelling, tongue swelling, eczemia, wheezing or asthma Vital Signs Vital Signs Vital Signs: 04/30/23 10:51 04/30/23 13:29 04/30/23 15:00 Temperature 96.2 F L Temperature Source Temporal Pulse Rate 146 H 80 120 H Respiratory Rate 18 16 18 Respiratory Pattern Blood Pressure 99/35 L 94/77 102/68 Blood Pressure Mean 56 82 79 Pulse Ox 97 97 100 Oxygen Delivery Method Room Air Room Air Room Air 04/30/23 16:02 04/30/23 16:20 Temperature Temperature Source Pulse Rate 80 Respiratory Rate Respiratory Pattern Normal Blood Pressure 116/80 Blood Pressure Mean Pulse Ox Oxygen Delivery Method Weight Weight: 145 lb Body Mass Index (BMI) 22.0 Physical Exam Const alert, oriented x3, no apparent distress and healthy appearing General Appearance: cooperative; Negative for anxious HEENT normocephalic Face and Sinus: normal facial exam Eyes EOMs intact bilaterally and no scleral icterus General Eye: normal appearance of both eyes Neck full ROM and supple Lymph Lymphatic: no lymphadenopathy noted Chest Chest: abnormal inspection of the chest Resp normal respiratory effort Effort and Inspection: able to speak in complete sentences Cardio regular rate GI soft to palpation and non-tender external exam normal Back/Spine no CVA tenderness Extremity normal to inspection, full ROM and no clubbing, cyanosis or edema General Extremity: Negative for calf tenderness or edema Skin Lesions: no lesions Rashes: no rashes Psych mental status grossly normal Labs Labs Labs: Blood Type O POSITIVE Antibody Screen NEGATIVE Hct 36.4 % (37-47) L Hgb 12.1 g/dL (12.0-15.0) Obstetrics US Rubella IgG Antibody 193.9 IU/mL Hep Bs Antigen Non-Reactive (Nonreactive) Chlamydia DNA (ALFONSO) Negative (Negative) Neisseria gonorrhoeae DNA (ALFONSO) Negative (Negative) HIV 1&2 Antibody Non-Reactive (Nonreactive) Glucose 1 Hr 50 gm 141 mg/dL (70-140) H Rhogam given: No Assessment & Plan (1) Retained products of conception: PLAN: After discussing the patient's diagnosis and treatment plan options, patient wishes to proceed with surgical management. I have discussed with the patient the risks, benefits, and alternatives of the procedure which include but are not limited to risks of anesthesia, bleeding, infection, possible damage to bowel, bladder, or surrounding vasculature which could lead to additional surgery to evaluate any complications. Patient agrees to procedure and wishes to proceed. ACOG/uptodate references given for additional information regarding procedure. plan for suction D&C now
[2023-04-30] MEDS: Lidocaine 1% (30 ml sdv) 30 ML Vial (16:48)
--- NOTE | 2023-04-30 17:15 | POC_PTH ---
PATIENT: CATERINA WATSON LOC: [facility] [place] U#:[id number] AGE/SX: 27/F ROOM: RE04/30/[address]: Dr. Phylicia Johnson DO : 1995 BED: DIS: 04/30/2023 SPEC #: [id number] RECD: 05/01/23 08:50 STATUS: YOHANNES MARIARemi #: [id number] ZANDRA: 04/30/23 17:[address]: Phylicia Johnson DEPT: SURGICAL PATHOLOGY RECD BY: Faith Reynolds ENTERED: 05/01/23 09:46 SP TYPE: PROD CONC OTHR DR: No Primary Care Phys Tissues: Product of conception, NOS Procedures: Surgery Specimen Level IV HEADER OPERATION: Suction dilation and curettage PRE-OP DIAGNOSIS: Retained products of conception TISSUE SUBMITTED: Products of conception MICROSCOPIC DIAGNOSIS Products of conception, dilation and curettage: Decidua and immature placental tissue, clinically retained products of conception. SJ:ajay 05/02/2023 MICROSCOPIC DESCRIPTION Slides are reviewed. GROSS DESCRIPTION Received in fixative is one container labeled with the patient's name and designated products of conception. The specimen consists of multiple irregular fragments of light to dark lofton soft tissue that in aggregate measure 8.0 x 7.0 x 1.0 cm. parts are not grossly recognized. Alining Inspector portions are submitted in two cassettes. / AM:ajay 05/01/2023 TC:5 CPT: 12765
[2023-04-30] MEDS: Lactated Ringers 1,000 ML 15 ML IV (17:19)
--- NOTE | 2023-04-30 17:28 | PCM.OPRPT ---
Problems Associated Problem List Diagnoses (1) Retained products of conception: Report of Operation Date of Procedure: 04/30/23 Pre-Operative Diagnosis: retained products of conception after first trimester medical Post-Operative Diagnosis: retained products of conception after first trimester medical Surgery/Procedure Performed:: suction dilation and curettage Surgeon: Phylicia Johnson obstetrician gynecologist: None Type of Anesthesia: MAC Anesthesiologist: John Souza Special Medications: 1%lidocaine local Specimen's removed: products of conception Drains: none Estimated Blood Loss (mL): 100cc Description of Procedure: Patient was taken to the operating room and placed under MAC local anesthesia. She was prepped and draped in the normal sterile fashion the dorsal lithotomy position. Bladder was drained of clear urine and anterior lip of the cervix was grasped and the uterus sounded to 12 cm. Cervix was progressively dilated to allow passage of an 8 curved suction curette. Progressive passes were made removing the retained products of conception without complication. Sharp curettage confirmed complete removal of the retained products. A bedside ultrasound was also performed and a thin endometrium was identified void of retained products. All instruments were removed from the vagina and excellent hemostasis was noted and the patient was taken to recovery in stable condition. Complications none Admit VTE Documentation VTE Present on Admission: No Multi Select Codes Urinary/Genital Urinary/Genital CPT Codes: 73890 Surg Trtmt missed Ab 1TM
--- NOTE | 2023-04-30 17:39 | DCINST_ITS ---
Discharge Instructions Diet Discharge Diet: No restrictions Activity Discharge Activity: Return to Normal Activity, May Shower and May Take a Tub Bath (after 1 week) May resume sexual activity in: 1-2 weeks Weight Bearing Status: Weight bearing as tolerated Lifting Restrictions: none Dressing / Incision Call your doctor if you observe: Fever of 101 or Higher, Using more than 1 pad per hour, Shortness of breath and Uncontrolled pain Follow Up Care Please Follow Up With: Phylicia Johnson DO When: Call [phone] to schedule appointment. Test Results: Test results from this visit will be discussed in further detail at your follow- up appointment, if applicable. Discharge Plan Admission Primary Reason for Your Visit: suction dilation and curettage Attending Provider: Phylicia Johnson Primary Care Provider: Care Physician,Shayla Primary Discharge Orders/Prescriptions Prescriptions: New naproxen 500 mg tablet 500 mg PO BID PRN (Reason: pain) Qty: 30 0RF Referrals / Follow Up: Care Physician,No Primary [Primary Care Provider] - Disposition Disposition (needs filled in before D/C Order can be placed): Home, Self Care
[2023-04-30 17:44] LABS: Absolute Lymphocyte Count 1.83 X10^3/uL (0.83-4.51); Absolute Neutrophil Count 6.6 X10^3/uL (2.0-7.7); Basophil# 0.03 X10^3/uL; Basophil% 0.3 % (0-1); Eosinophils% 1.1 % (0-5); Hematocrit 24.2 % (37-47); Hemoglobin 8.3 g/dL (12.0-15.0); Lymphocyte # 1.83 X10^3/ul (0.83-4.51); Lymphocyte % 19.9 % (19-41); Mean Corp Hgb Conc 34.3 g/dL (32-36); Mean Corpuscular Hgb 30.2 pg (27.0-32.0); Mean Platelet Vol. 10.7 fl (6.2-12.0); Monocyte# 0.64 X10^3/uL; NRBC Flagged by Analyzer 0 % (0-5); Neutrophil # 6.56 X10^3/uL (2.7-7.7); Neutrophil % 71.4 % (47-70); Platelet Count 176 K/mm3 (150-450); RBC Distribution Width CV 14.3 % (11.6-14.6); RBC Distribution Width SD 45.4 fl (35.1-43.9); Red Blood Count 2.75 M/mm3 (4.2-5.4); White Blood Count 9.2 K/mm3 (4.4-11.0)
== END 2023-04-30 18:37 | disposition home or self-care (01) ==
LOC: ED 15:43 → SDC 16:40 → ACINP 17:23
PROVIDERS: Emergency Provider Emergency Medicine; Visit Provider Obstetrics & Gynecology
PROC: (CPT 59820; principal; 2023-04-30 17:00)
DX: O03.4 Incomplete spontaneous abortion without complication (principal)
CPT/HCPCS: 59820; 01965; 76817; 84702; 85025; 86850; 86900; 86901; 88305; 99283; J7030; A4216; J2405

== ENCOUNTER → 2023-05-21 | Outpatient (CLI) | payer MEDICAID, SELFPAY ==
[2023-05-24 06:09] LABS: Chlamydia By Nucleic Acid AMP Negative (Negative); Gonococcus By Nucleic Acid AMP Negative (Negative)
== END | disposition home or self-care (01) ==
PROVIDERS: Visit Provider Obstetrics & Gynecology
DX: Z11.3 Encounter for screening for infections with a predominantly sexual mode of transmission (principal); N89.8 Other specified noninflammatory disorders of vagina
CPT/HCPCS: 87070; 87205; 87491; 87591

== ENCOUNTER → 2023-09-08 | Outpatient (CLI) | payer MEDICAID, SELFPAY ==
[2023-09-08 15:47] LABS: HIV - WCH Non-Reactive (Nonreactive); Hepatitis B Surface Antigen Non-Reactive (Nonreactive); Hepatitis C Antibody Non-Reactive (Nonreactive); Syphilis Antibodies Non-reactive
[2023-09-11 09:09] LABS: Chlamydia By Nucleic Acid AMP Negative (Negative); Gonococcus By Nucleic Acid AMP Negative (Negative)
== END | disposition home or self-care (01) ==
PROVIDERS: Referring Provider Registered Nurse; Visit Provider Registered Nurse
DX: N89.8 Other specified noninflammatory disorders of vagina (principal)
CPT/HCPCS: 36415; 86703; 86780; 86803; 87070; 87205; 87340; 87491; 87591

== ENCOUNTER → 2024-05-28 | Outpatient (CLI) | payer MEDICAID, SELFPAY ==
[2024-06-01 09:09] LABS: Chlamydia By Nucleic Acid AMP Negative (Negative); Gonococcus By Nucleic Acid AMP Negative (Negative)
== END | disposition home or self-care (01) ==
PROVIDERS: Referring Provider Obstetrics & Gynecology; Visit Provider Obstetrics & Gynecology
DX: N89.8 Other specified noninflammatory disorders of vagina (principal)
CPT/HCPCS: 87070; 87205; 87491; 87591

== ENCOUNTER → 2025-02-08 | Outpatient (CLI) | payer BC, SELFPAY ==
[2025-02-08 12:41] LABS: HIV Nonreactive (Nonreactive); Syphilis Antibodies Nonreactive (Nonreactive)
[2025-02-09 15:08] LABS: HCV Quant. RNA PCR HCV Not Detected IU/mL (.)
[2025-02-10 06:08] LABS: Chlamydia By Nucleic Acid AMP Negative (Negative); Gonococcus By Nucleic Acid AMP Negative (Negative)
== END | disposition home or self-care (01) ==
PROVIDERS: Referring Provider Nurse Practitioner Women's Health; Visit Provider Nurse Practitioner Women's Health
DX: Z20.2 Contact with and (suspected) exposure to infections with a predominantly sexual mode of transmission (principal)
CPT/HCPCS: 36415; 86695; 86696; 86703; 86780; 87491; 87522; 87591; 88175; G0145

== ENCOUNTER → 2025-08-10 | Outpatient (CLI) | payer MEDICAID, SELFPAY ==
[2025-08-10 17:15] LABS: HIV Nonreactive (Nonreactive); Syphilis Antibodies Nonreactive (Nonreactive)
[2025-08-13 04:07] LABS: Chlamydia By Nucleic Acid AMP Negative (Negative); Gonococcus By Nucleic Acid AMP Negative (Negative)
[2025-08-13 16:09] LABS: HCV Quant. RNA PCR HCV Not Detected IU/mL (.)
== END | disposition home or self-care (01) ==
PROVIDERS: Visit Provider Nurse Practitioner Women's Health
DX: N89.8 Other specified noninflammatory disorders of vagina (principal); Z11.3 Encounter for screening for infections with a predominantly sexual mode of transmission
CPT/HCPCS: 36415; 86695; 86696; 86703; 86780; 87070; 87205; 87491; 87522; 87591

== ENCOUNTER → 2025-09-01 | Outpatient (CLI) | payer MEDICAID, SELFPAY ==
--- OUTSIDE RECORDS SUMMARY | 2025-09-01 10:46 | XMS RPT_ITS | CCD ---
Author Organization [facility] Care Team Providers Care Cook Helper Juice Name Role Phone Care Physician, No Primary Primary Care Provider Unavailable Care Physician, No Primary Referring Provider Un available Samia CARDIAC CATHETERIZATION TECHNICIAN, CARDIAC CATHETERIZATION TECHNICIAN-C Polina Attending Provider [phone] Unavailable Primary Care Provider Unavailabl e Care Physician, No Primary Primary Care Provider Unavailable Dr. Emi Gruber Emergency Provider Dr. Phylicia Johnson Admit Provider Dr. Phylicia Johnson Attending Provider [phone] Dr. Phylicia Johnson Other Provider Care Physician, No Primary Referring Provider Un available Samia CARDIAC CATHETERIZATION TECHNICIAN, CARDIAC CATHETERIZATION TECHNICIAN-C Polnia Attending Provider Care Physician, No Primary Primary Care Provider Unavailable Care Physician, No Primary Referring Provider Un available TOSHA Rizzo Attending Provider Unavailable Primary Care Provider Unavailabl e Care Physician, No Primary Primary Care Provider Unavailable Care Physician, No Primary Referring Provider Un available Dr. Phylicia Johnson Attending Provider [phone] Care Physician, No Primary Primary Care Provider Unavailable Care Physician, No Primary Referring Provider Un available Dr. Phylicia Johnson Attending Provider [phone] TOSHA Rizzo Attending Provider Unavailable Primary Care Provider ROYER Beckford Attending IVETTE Serna Primary Care Unavailabl e Care Physician, No Primary Primary Care Provider Unavailable Care Physician, No Primary Referring Provider Un available Osgood CARDIAC CATHETERIZATION TECHNICIAN-CPolina Attending Provider Samia CARDIAC CATHETERIZATION TECHNICIAN-C, Polina Referring Provider [phone] Care Physician, No Primary Primary Care Physicia n Unavailable Care Physician, No Primary Referring Provider Un available Samia CARDIAC CATHETERIZATION TECHNICIAN-C, Polina Attending Physician [phone] Care Physician, No Primary Primary Care Unava ilable Samia CARDIAC CATHETERIZATION TECHNICIAN, Polina Attending Unavailable Osgood CARDIAC CATHETERIZATION TECHNICIAN, Polina Referring Unavailable Osgood CARDIAC CATHETERIZATION TECHNICIAN, Polina Attending Unavailable Care Physician, No Primary Primary Care Unava ilable Care Physician, No Primary Primary Care Unava ilable Care Physician, No Primary Referring Unava ilable Samia CARDIAC CATHETERIZATION TECHNICIAN, Polina Attending Unavailable Care Physician, No Primary Referring Unava ilable Samia CARDIAC CATHETERIZATION TECHNICIAN, Polina Attending Unavailable Care Physician, No Primary Primary Care Unava ilable Allergies Allergy Classification Reported Allergen(s) Allergy Type Date of Onset Reaction(s) Facility (5 sources) Seasonal allergy; Translations: [SEASONAL ALLERGIES] Allergy to substance 4 Other: See Comments [facility] Medications Current Medications Medication Drug Class(es) Dates Sig (Normalized) Sig (Original) amoxicillin 500 mg oral capsule (1 source) Penicillin-class Antibacterial Start: 03-15-2024 End: 03-25-2024 take 1 capsule by mouth twice daily amoxicillin (AMOXIL) 500 mg capsule Indications: Strep throat Take 1 capsule by mouth two times a day for 10 days. 20 capsule 0 03/15/2024 03/25/2024 Active [facility] (Nk) (3 sources) Start: 02-08-2025 [facility] (Nk) Active February 08, 2025 12:00am Start: 04-30-2023 [facility] (Nk) A ctive April 30, 2023 12:00am Completed/Discontinued Medications Medication Drug Class(es) Dates Sig (Normalized) Sig (Original) acetaminophen 325 mg / oxyCODONE hydrochloride 5 mg oral tablet (13 sources) Opioid Agonist Start: 06-25-2022 End: 07-11-2022 Oxycodone-Acetamin ophen (Percocet) 5-325 mg tablet Discontinued 1 {tbl} PO Q4H as needed for pain 10 7 0 June 25, 2022 July 11, 2022 8:41am Ectopic Unspecified ectopic without intrauterine azithromycin 500 mg oral tablet (15 sources) Macrolide Antimicrobial Start: 02-17-2018 End: 06-16-2019 take 2 tablets by mouth once Azithromycin 500 mg tablet Discontinued 1000 mg PO ONCE 2 0 February 17, 2018 12:00am June 16, 2019 8:39am Start: 02-17-2018 End: 06-16-2019 take 1000 mg by mouth once Azithromycin Discontinued 1 000 MG PO ONCE 2 February 16, 2018 11:00pm June 16, 2019 7:39am benzocaine 7.5 mg / dextromethorphan hydrobromide 5 mg oral lozenge (7 sources) Uncompetitive A-pbigkt-V-aspartate Receptor Antagonist, Sigma-1 Agonist, Standardized Chemical Allergen Start: 04-01-2023 End: 04-30-2023 take 5-7.5 mg by mouth every four hours as needed Dextromethorphan-Benzocaine (Cepacol Sore Throat-Cough) 5-7.5 mg lozenge Discontinued 1 NMA PO Q4H as needed for sore throat April 01, 2023 12:00am April 30, 2023 3:28pm Start: 04-01-2023 End: 04-30-2023 take 5-7.5 mg by mouth every four hours Dextromethorphan-Benzocaine (Cepacol Sor e Throat-Cough) 5-7.5 mg lozenge Discontinued 1 LOZENGE PO Q4H March 31, 2023 11:00pm April 30, 2023 2:28pm doxycycline monohydrate 100 mg oral capsule (15 sources) Tetracycline-class Drug Start: 01-18-2022 End: 07-11-2022 take 1 capsule by mouth twice daily Doxycycline Monohydrate 100 mg capsule Discontinued 100 mg PO TWICE A DAY January 18, 2022 12:00am July 11, 2022 8:41am Norgestimate-Ethi nyl Estradiol (15 sources) Progestin, Estrogen Start: 02-16-2018 End: 06-16-2019 take 1 tablet by mouth once daily Norgestimate-Ethi nyl Estradiol (Sprintec (28)) 0.25-35 mg-mcg tablet Discontinued 1 TABLET PO daily February 16, 2018 11:45am June 16, 2019 8:39am Start: 02-16-2018 End: 06-16-2019 Norgestimate-Ethinyl Estradi ol (Sprintec (28)) 0.25-35 mg-mcg tablet Discontinued 1 {tbl} PO daily 28 February 16, 2018 12:00am June 16, 2019 8:39am Start: 02-16-2018 End: 06-16-2019 Norgestimate-Ethinyl Estradi ol (Sprintec (28)) 0.25-35 mg-mcg tablet Discontinued 1 {tbl} PO daily February 16, 2018 12:00am June 16, 2019 8:39am Start: 02-16-2018 End: 06-16-2019 take 1 tablet by mouth once daily Norgestimate-Ethinyl Estradiol (Sprintec (28)) 0.25-35 mg-mcg tablet Discontinued 1 TABLET PO daily February 15, 2018 11:00pm June 16, 2019 7:39am Start: 02-16-2018 End: 06-16-2019 take 1 tablet by mouth once daily Norgestimate-Ethinyl Estradiol (Sprintec (28)) 0.25-35 mg-mcg tablet Discontinued 1 TABLET PO daily February 16, 2018 12:00am June 16, 2019 8:39am ferrous gluconate 324 mg oral tablet (4 sources) Start: 04-30-2023 End: 05-28-2024 take 1 tablet by mouth twice daily Ferrous Gluconate 324 mg (38 mg iron) tablet Discontinued 324 mg PO TWICE A DAY 60 30 0 April 30, 2023 12:00am May 28, 2024 3:50pm fluconazole 150 mg oral tablet (4 sources) Azole Antifungal Start: 05-23-2023 End: 05-24-2023 take 1 tablet by mouth once daily Fluconazole (Diflucan) 150 mg tablet Discontinued 150 mg PO DAILY 1 1 0 May 23, 2023 12:00am May 23, 2023 12:00am May 24, 2023 12:13am Infection due to Streptococcus agalactiae Streptococcal infection, unspecified site ibuprofen 600 mg oral tablet (13 sources) Nonsteroidal Anti-inflammator y Drug Start: 06-25-2022 End: 07-11-2022 take 1 tablet by mouth every six hours as needed for pain Ibuprofen 600 mg tablet Discontinued 600 mg PO EVERY 6 HOURS as needed for pain 7 0 June 25, 2022 12:00am July 11, 2022 8:41am one tab every 6 hrs as needed for mild to moderate pain 1 ml medroxyPROGESTERone acetate 150 mg/ml prefilled syringe (6 sources) Progestin Start: 05-21-2023 End: 05-28-2024 inject 150 mg by intramuscular injection every three months Medroxyprogesterone (Depo-Provera) 150 mg/mL syringe Discontinued 150 mg IM every 3 months 1 November 24, 2023 12:55pm May 28, 2024 3:50pm metroNIDAZOLE 500 mg oral tablet (20 sources) Nitroimidazole Antimicrobial Start: 05-28-2024 End: 02-08-2025 take 1 tablet by mouth twice daily Metronidazole 500 mg tablet Discontinued 500 mg PO TWICE A DAY 14 August 03, 2024 4:32pm February 08, 2025 10:31am Start: 09-10-2023 End: 09-17-2023 take 1 tablet by mouth twice daily Metronidazole 500 mg tablet Discontinued 500 mg PO TWICE A DAY 14 7 0 September 10, 2023 1:00am September 16, 2023 1:00am September 17, 2023 1:05am Start: 05-21-2023 End: 05-28-2023 take 1 tablet by mouth twice daily Metronidazole 500 mg tablet Discontinued 500 mg PO TWICE A DAY 14 7 0 May 21, 2023 12:00am May 27, 2023 12:00am May 28, 2023 12:04am Start: 03-26-2021 End: 07-11-2022 take 1 tablet by mouth twice daily Metronidazole 500 mg tablet Discontinued 500 mg PO TWICE A DAY 14 January 15, 2022 12:00am July 11, 2022 8:41am Start: 02-16-2018 End: 06-16-2019 take 1 tablet by mouth twice daily Metronidazole (Flagyl) 500 mg tablet Discontinued 500 mg PO TWICE A DAY 14 0 February 16, 2018 12:00am June 16, 2019 8:39am naproxen 500 mg oral tablet (4 sources) Nonsteroidal Anti-inflammatory Drug Start: 04-30-2023 End: 05-21-2023 take 1 tablet by mouth twice daily as needed for pain Naproxen 500 mg tablet Discontinued 500 mg PO TWICE A DAY as needed for pain 30 0 April 30, 2023 12:00am May 21, 2023 4:02pm norethindrone 0.35 mg oral tablet (15 sources) Start: 02-08-2020 End: 01-15-2022 take 1 tablet by mouth once daily Norethindrone (Contraceptive) (Katalina) 0.35 mg tablet Discontinued 0.35 mg PO DAILY 84 4 February 08, 2020 12:00am January 15, 2022 11:14am continuous cycling start day 1 of menstrual cycle ondansetron 4 mg disintegrating oral tablet (7 sources) Serotonin-3 Receptor Antagonist Start: 04-01-2023 End: 04-30-2023 take 1 tablet by mouth every eight hours as needed for nausea Ondansetron 4 mg tablet,disintegra ting Discontinued 4 mg PO EVERY 8 HOURS NEEDED as needed for Nausea 14 0 April 01, 2023 12:00am April 30, 2023 3:28pm Pnv #29-Boju-Kynxx Acid-Omega3 30 mg iron-10 mg iron-1 mg capsule (1 source) Start: 07-16-2019 End: 01-15-2022 Pnv #86-Qxfa-Abftb Acid-Omega3 30 mg iron-10 mg iron-1 mg capsule Discontinued 1 NMA PO DAILY July 16, 2019 12:00am January 15, 2022 11:14am Pnv 99-Pzvz-Hvpcc Ubms-Comvf-3 30 mg iron-10 mg iron-1 mg capsule (1 source) Start: 07-16-2019 End: 01-15-2022 Pnv 71-Bcra-Rtgep Vsbg-Ixqvh-9 30 mg iron-10 mg iron-1 mg capsule Discontinued 1 NMA PO DAILY 0 July 16, 2019 12:00am January 15, 2022 11:14am vitamin#30 30 mg iron-10 mg iron-folic acid 1 mg-omg3 capsule (13 sources) Start: 07-16-2019 End: 01-15-2022 take 1 capsule by mouth once daily vitamin#30 30 mg iron-10 mg iron-folic acid 1 mg-omg3 capsule Discontinued 1 CAP PO DAILY July 16, 2019 11:49am January 15, 2022 11:14am Start: 07-16-2019 End: 01-15-2022 take 1 capsule by mouth once daily vitamin#30 30 mg iron-10 mg iron-folic acid 1 mg-omg3 capsule Discontinued 1 CAP PO DAILY July 15, 2019 11:00pm January 15, 2022 10:14am Start: 07-16-2019 End: 01-15-2022 take 1 capsule by mouth once daily vitamin#30 30 mg iron-10 mg iron-folic acid 1 mg-omg3 capsule Discontinued 1 CAP PO DAILY July 16, 2019 12:00am January 15, 2022 11:14am spironolactone 25 mg oral tablet (15 sources) Aldosterone Antagonist Start: 02-16-2018 End: 06-16-2019 take 1 tablet by mouth once daily in the morning Spironolactone 25 mg tablet Discontinued 25 mg PO EVERY MORNING February 16, 2018 12:00am June 16, 2019 8:39am tranexamic acid 650 mg oral tablet (15 sources) Antifibrinolytic Agent Start: 01-15-2022 End: 07-11-2022 Tranexamic Acid (Lysteda) 650 mg tablet Discontinued 1300 mg PO THREE TIMES A DAY 60 2 January 15, 2022 12:00am July 11, 2022 8:41am Problems Active Problems Problem Classification Problem Date Documented Date Episodic/Chronic Abdominal pain (9 sources) Lower abdominal pain; Translations: [Lower abdominal pain, unspecified] Episodic Contraceptive and procreative management (15 sources) Patient encounter status; Translations: [Encounter for contraceptive management, unspecified] 01-15-2023 Episodic Ectopic (20 sources) Ectopic ; Translations: [Unspecified ectopic without intrauterine ] Episodic Comment on above: likely ruptured but stable currently, weekly HCG quants until level less than 5. Immunizations and screening for infectious disease (5 sources) Encounter for screening for infections with a predominantly sexual mode of transmission; Translations: [Screening examination for venereal disease] Onset: 02-08-2025 09-08-2023 Episodic Menstrual disorders (16 sources) Dysmenorrhea; Translations: [Dysmenorrhea, unspecified] Chronic Comment on above: marcus PRIDE Other aftercare (2 sources) Encounter for follow-up examination after completed treatment for conditions other than malignant neoplasm; Translations: [Follow-up examination, following surgery, unspecified] Episodic Other complications of ; puerperium affecting management of mother (5 sources) Retained products of conception, following delivery with hemorrhage ; Translations: [Delayed and secondary hemorrhage] 04-30-2023 Episodic Other complications of (2 sources) Retained products of conception 05-02-2023 Episodic Other female genital disorders (5 sources) Abnormal vaginal bleeding; Translations: [Abnormal uterine and vaginal bleeding, unspecified] 04-30-2023 Chronic Other female genital disorders (8 sources) Vaginal discharge; Translations: [Other specified noninflammatory disorders of vagina] 01-15-2023 Episodic Other female genital disorders (8 sources) Other specified noninflammatory disorders of vagina; Translations: [Leukorrhea, not specified as infective] Onset: 08-29-2025 01-15-2023 Episodic Other upper respiratory infections (10 sources) Sore throat symptom; Translations: [Acute pharyngitis, unspecified] Episodic Residual codes; unclassified (10 sources) H/O: major abdominal surgery; Translations: [Acquired absence of other genital organ(s)] 07-11-2022 Episodic Comment on above: R Residual codes; unclassified (10 sources) H/O: ectopic ; Translations: [Personal history of other complications of , childbirth and the puerperium] 07-11-2022 Episodic Residual codes; unclassified (2 sources) Acquired absence of other genital organ(s); Translations: [Personal history of surgery to other organs] Episodic Residual codes; unclassified (4 sources) H/O: medical termination of ; Translations: [Other specified postprocedural states] 05-21-2023 Episodic Residual codes; unclassified (2 sources) Other specified postprocedural states; Translations: [Other postprocedural status] 05-21-2023 Episodic Past or Other Problems Problem Classification Problem Date Documented Da te Episodic/Chronic Other screening for suspected conditions (not mental disorders or infectious disease) (1 source) Encounter for screening for malignant neoplasm of cervix; Translations: [Encounter for screening for malignant neoplasm of cervix] Onset: 02-08-2025 Episodic Unclassified (2 sources) Retained products of conception; Translations: [Retained products of conception] 05-02-2023 Results Test Name Value Interpretation Reference Range Facility Chlamydia/GC ALFONSO aptimaon CHLAMY,NUC ACID Negative Normal Negative [facility] Comment on above: Performed By: #### L 7000.1800, M100.2000, 0 #### [facility] [address] [place], [address] GC BY NUC ACID Negative Normal Negative [facility] Comment on above: Result Comment: Perf ormed at: =[facility] Dariela Abbott [id number] Life Assurance Representative: Tereza Lam MD, Phone: [phone] Performed By: #### L 6999.1799, , 0 #### [facility] [address] [place], [address] HSV 1 AND 2 IgGon 08-13-2025 HSV 1 IgG Non-Reactive Normal Non Reactive [facility] Comment on above: Result Comment: Pl ease note reference interval change HSV-1 IgG testing performed using the [employer] HSV-1 IgG assay. Performed By: #### L 3400.1610, L3890.6006, L509.8002, L7000.7000 #### [facility] [address] [place], [address] HSV 2 IgG Reactive Abnormal Non Reactive [facility] Comment on above: Result Comment: Pl ease note reference interval change Current guidelines and recommendations do not recommend routine screening for HSV-2 in asymptomatic individuals, including those that are . The detection of HSV-2 IgG antibodies in a single sample indicates previous exposure to HSV-2 but does not give information as to the site of HSV infection or the timing of exposure. The predictive value of positive and negative results depends on the population's prevalence and the pretest likelihood of HSV-2. HSV-2 IgG testing performed using the [employer] HSV-2 IgG assay. Performed at: [address] [id number] Life Assurance Representative: Lux Moscoso PhD, Phone: [phone] Performed By: #### L 3400.1610, L3890.6006, L509.8002, L7000.7000 #### [facility] [address] [place], [address] Hepatitis C,RNA PCR Viral Lo brick stacker 08-13-2025 HCV log 10 TNP Normal . [facility] Comment on above: Performed By: #### L 3400.1610, L3890.6006, L509.8002, L7000.7000 #### [facility] [address] [place], [address] HCV QT RNA PCR Not detected Normal . [facility] Comment on above: Performed By: #### L 3400.1610, L3890.6006, L509.8002, L7000.7000 #### [facility] [address] [place], [address] TEST INFO: Comment Normal . [facility] Comment on above: Result Comment: The quantitative range of this assay is 15 IU/mL to 100 million IU/mL. Performed By: #### L 3400.1610, L3890.6006, L509.8002, L7000.7000 #### [facility] [address] [place], [address] Genital Culture Comprehensiv demetrio 08-12-2025 VAC Reason for Exam: vaginal discharge No yeast, Neisseria or beta-hemolytic Streptococcus isolated. G. vaginalis (Presumptive) Amount Growth 2+ Normal [facility] Comment on above: Performed By: #### L 7000.1800, M100.1999, M100.3200 #### [facility] [address] [place], [address] Gram Stainon 08-10-2025 GS Reason for Exam: vaginal discharge Gram Stain 2+ Gram negative rods 2+ Gram variable smith 2+ Gram positive rods No Gram negative diplococci Score =6 Interpretation: 0-3 Normal, 4-6 Intermediate, 7-10 Positive BV Normal [facility] Comment on above: Performed By: #### L 7000.1800, M100.1999, M100.3200 #### [facility] [address] [place], [address] HIVon 08-10-2025 HIV Non-Reactive Normal Nonreactive [facility] Comment on above: Result Comment: Non- Reactive Reactive Repeatedly reactive samples must be confirmed according to CDC recommended confirmatory algorithms. The subresults for either HIVAG or AHIV can be used as an aid in the selection of the confirmation algorithm for reactive samples. Send out specimens with Reactive results to [facility] for confirmation. Order the HIV antibody detection and differentiation: [id number] Performed By: #### L 3400.1610, L3890.6006, L509.8002, L7000.7000 #### [facility] [address] [place], [address] Ui Software Developer Office Visit Reporton 08-10-2025 Ui Software Developer Office Visit Report [facility] [address], [address] [place] [address] OFFICE VISIT Date of Service: 08/10/25 MR#: [id number] Acct: [id number] Name: CATERINA WATSON Rep #: [id number] : 1995 Provider: WILLIAM bernal Age/Sex: 30/F [place] [facility] [place]: Signed Intake Vital Signs 02/08/25 10:32 08/10/25 15:05 08/10/25 15:10 Height 5 ft 8 in 5 ft 8 in 5 ft 8 in Weight: 174 lb 2 oz BMI 26.4 BP 130/84 H Intake Visit Reasons: Vaginal discharge/odor Refuge Manager Required: No Is patient in pain?: No Allergies No Known Allergies Allergy (Verified 08/10/25 15:05) Medications ???Medication ???Instructions ???Recorded ???Confirmed ???Type NK 02/08/25 08/10/25 History Is last menstrual period known: Yes Last Menstrual Period: 07/30/25 Post menopausal: No Patient : No : No PFSH Medical History Status post elective Retained products of conception Abnormal vaginal bleeding Retained products of conception with hemorrhage History of ectopic Ectopic Alopecia Surgical History Status post dilatation and curettage H/O unilateral salpingectomy H/O oophorectomy No significant past medical history Social History Smoking Status: Never smoker second hand exposure: Yes alcohol intake: current details: social substance use type: does not use caffeine: No what type of physical activity do you participate in: none seatbelt use: always do you feel safe at home: Yes additional social history: [facility] care HPI Vaginal discharge/odor Details: CATERINA WATSON is a 30 year old who presents for increased vaginal discharge with odor. Denies itching or irritation. New sexual partner. Condoms for contraception. Declines other contraception. Female Reproductive History Last Menstrual Period: 07/30/25 History 3 Elective abortions 1 Hx Para 1 Spontaneous abortions Hx # Term Pregnancies Ectopic pregnancies 1 Hx # Pregnancies Multiple births # of living children 1 Past Pregnancies Del. Date Name GA/Weeks Outcome Route Bth Weight Infant Gen Labor Lgth Anesthesia Del Locatn Provider FOB 12/24/19 Flavia 39 live - full term Female epidural [facility] Delivery Date: 12/24/19 Last Updated by: Luh Simons IOL [place] ROS Const Constitutional: Reports system reviewed and no additional complaints, except as documented Eyes Eyes: Reports system reviewed and no additional complaints, except as documented GI GI: Denies abdominal pain or change in bowel habits : Reports as per HPI Exam Const General: cooperative and no acute distress Orientation: oriented x3 General: bladder normal to palpation External Female Exam: normal external appearance and normal appearance of the urethra Urethra: normal appearance of the urethra Speculum Exam - Vagina: normal appearance of the vagina, normal vaginal discharge, no lesions and nontender Speculum Exam - Cervix: normal appearance of the cervix Bimanual Exam- Vagina Uterus: normal bimanual exam, uterine size normal, bladder normal to palpation, uterine shape normal, uterine mobility normal and non-tender Bimanual Exam- Adnexa, other: normal adnexae, no masses and non-tender Coding Level of Care Code Off vis,est,level 3 Diagnoses Vaginal discharge N89.8 Possible exposure to sexually transmitted infection Z20.2 Assessment and Plan Assessment and Plan (1) Vaginal discharge: Status: Acute (2) Possible exposure to sexually transmitted infection: Orders: Orders HSV 1 2 IgG Today Z20.2 - Contact with and (suspected) exposure to infections with a predominantly sexual mode of transmission HIV Today Z20.2 - Contact with and (suspected) exposure to infections with a predominantly sexual mode of transmission Syphilis Antibodies Today Z20.2 - Contact with and (suspected) exposure to infections with a predominantly sexual mode of transmission Hepatitis C,RNA PCR Viral Load Today Z20.2 - Contact with and (suspected) exposure to infections with a predominantly sexual mode of transmission Culture, Genital Comprehensive Today N89.8 - Other specified noninflammatory disorders of vagina POC BV Blue Test Today N89.8 - Other specified noninflammatory disorders of vagina Chlamydia/GC ALFONSO aptima Today Z11.3 - Encounter for screening for infections with a predominantly sexual mode of transmission Plan MARTIN BV and trich, GCC and comp vaginal culture plus serum STD labs-call positives RTO prn, annual exam 08/10/25 1520 Date (more content not included)... Normal [facility] Syphilis Antibodieson 2024 Syphilis Abs Non-Reactive Normal Nonreactive [facility] Comment on above: Performed By: #### L 3400.1610, L3890.6006, L509.8002, L7000.7000 #### [facility] [address] [facility] [place], [place], [id number] PAP I-G w/rfx hrHPV-Aptimaon 02-15-2025 ADEQ Comment Normal . [facility] Comment on above: Order Comment: Speci men Comment: [id number] Comment: Source.............CervixSpecimen Comment: No. of containers..01 ThinPrep Vial Result Comment: Sati sfactory for evaluation. Endocervical and/or squamous metaplastic cells (endocervical component) are present. Performed By: #### L 3400.1610, L3890.6006, L509.8002, L7000.7000 #### [facility] [address] [place], [place], [address] COMM . Normal . [facility] Comment on above: Order Comment: Speci men Comment: [id number] Comment: Source.............CervixSpecimen Comment: No. of containers..01 ThinPrep Vial Performed By: #### L 3400.1610, L3890.6006, L509.8002, L7000.7000 #### [facility] [address] [place], [place], [address] COMMENT Comment Normal . [facility] Comment on above: Order Comment: Speci men Comment: [id number] Comment: Source.............CervixSpecimen Comment: No. of containers..01 ThinPrep Vial Result Comment: This liquid based ThinPrep(R) pap test was screened with the use of an image guided system. Performed By: #### L 3400.1610, L3890.6006, L509.8002, L7000.7000 #### [facility] [address] [place], [place], [id number] DIAG Comment Normal . [facility] Comment on above: Order Comment: Speci men Comment: [id number] Comment: Source.............CervixSpecimen Comment: No. of containers..01 ThinPrep Vial Result Comment: NEGA TIVE FOR INTRAEPITHELIAL LESION OR MALIGNANCY. THIS SPECIMEN WAS RESCREENED PART OF OUR EXTERIOR DESIGNER PROGRAM. Performed By: #### L 3400.1610, L3890.6006, L509.8002, L7000.7000 #### [facility] [address] [place], [place], [address] HPV RFLX Comment Normal . [facility] Comment on above: Order Comment: Speci men Comment: [id number] Comment: Source.............CervixSpecimen Comment: No. of containers..01 ThinPrep Vial Result Comment: The HPV DNA reflex criteria were not met with this specimen result therefore, no HPV testing was performed. Performed at: [facility] - [address] [id number] Life Assurance Representative: Tereza Lam MD, Phone: [phone] Performed at: [facility] [address] [place] [id number] Life Assurance Representative: Ashwin Young MD, Phone: [phone] Performed By: #### L 3400.1610, L3890.6006, L509.8002, L7000.7000 #### [facility] [address] [place], [address] PAPSMR Comment Normal . [facility] Comment on above: Order Comment: Speci men Comment: [id number] Comment: Source.............CervixSpecimen Comment: No. of containers..01 ThinPrep Vial Result Comment: The Pap smear is a screening test designed to aid in the detection of premalignant and malignant conditions of the uterine cervix. It is not a diagnostic procedure and should not be used as the sole means of detecting cervical cancer. Both false-positive and false-negative reports do occur. Performed By: #### L 3400.1610, L3890.6006, L509.8002, L7000.7000 #### [facility] [address] [place], [address] PERFORM Comment Normal . [facility] Comment on above: Order Comment: Speci men Comment: [id number] Comment: Source.............CervixSpecimen Comment: No. of containers..01 ThinPrep Vial Result Comment: Natividad Rizzo, Hazard Mitigation Officer (ASCP) Performed By: #### L 3400.1610, L3890.6006, L509.8002, L7000.7000 #### [facility] [address] [place], [address] QC REV Comment Normal . [facility] Comment on above: Order Comment: Speci men Comment: [id number] Comment: Source.............CervixSpecimen Comment: No. of containers..01 ThinPrep Vial Result Comment: Megan Jarquin, Hazard Mitigation Officer (ASCP) Performed By: #### L 3400.1610, L3890.6006, L509.8002, L7000.7000 #### [facility] [address] [place], [address] Chlamydia/GC ALFONSO aptimaon CHLAMY,NUC ACID Negative Normal Negative [facility] Comment on above: Performed By: #### L 7400.0353, L7000.1800 #### [facility] [address] [place], [address] GC BY NUC ACID Negative Normal Negative [facility] Comment on above: Result Comment: Perf ormed at: =G - [facility] [address] [id number] Life Assurance Representative: Tereza Lam MD, Phone: [phone] Performed By: #### L 7400.0353, L7000.1800 #### [facility] [address] [place], [address] HSV 1 AND 2 IgGon 02-10-2025 HSV 1 IgG Normal [facility] Comment on above: Result Comment: RESU LT: NON REACTIVE Please note reference interval change HSV-1 IgG testing performed using the [employer] HSV-1 IgG assay. Performed By: #### L 3400.1610, L3890.6006, L509.8002, L7000.7000 #### [facility] [address] [place], [address] HSV 2 IgG Normal [facility] Comment on above: Result Comment: RESU LT: REACTIVE Please note reference interval change Current guidelines and recommendations do not recommend routine screening for HSV-2 in asymptomatic individuals, including those that are . The detection of HSV-2 IgG antibodies in a single sample indicates previous exposure to HSV-2 but does not give information as to the site of HSV infection or the timing of exposure. The predictive value of positive and negative results depends on the population's prevalence and the pretest likelihood of HSV-2. HSV-2 IgG testing performed using the [employer] HSV-2 IgG assay. Performed at: [address] [id number] Life Assurance Representative: Hailey Marsh MD, Phone: [phone] Performed at: [address] [id number] Life Assurance Representative: Lxu Moscoso PhD, Phone: [phone] Performed By: #### L 3400.1610, L3890.6006, L509.8002, L7000.7000 #### [facility] [address] 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 [facility] Comment on above: Performed By: #### L 3400.1610, L3890.6006, L509.8002, L7000.7000 #### [facility] [address] [place], [place], [id number] HCV QT RNA PCR Not detected Normal . [facility] Comment on above: Performed By: #### L 3400.1610, L3890.6006, L509.8002, L7000.7000 #### [facility] [address] [place], [place], [id number] TEST INFO: Comment Normal . [facility] Comment on above: Result Comment: The quantitative range of this assay is 15 IU/mL to 100 million IU/mL. Performed By: #### L 3400.1610, L3890.6006, L509.8002, L7000.7000 #### [facility] [address] [place], [address] Addendum DocumentOrdered By: Polina Gracia on 02-08-2025 Hepatitis C RNA Qnt (PCR) Test Info Comment . [facility] Comment on above: The quantitative ran ge of this assay is 15 IU/mL to 100million IU/mL. C. trachomatis rRNA ALFONSO+prob e Ql (Unsp spec)Ordered By: Polina Gracia on 02-08-2025 Chlamydia DNA (ALFONSO) Negative Negative [facility] HCV RNA ALFONSO+probe QnOrdered By: Polina Gracia on 02-08-2025 Hepatitis C RNA Quantitative (PCR) Not detected . [facility] HIVon 02-08-2025 HIV Non-Reactive Normal Nonreactive [facility] Comment on above: Result Comment: Non- Reactive Reactive Repeatedly reactive samples must be confirmed according to CDC recommended confirmatory algorithms. The subresults for either HIVAG or AHIV can be used as an aid in the selection of the confirmation algorithm for reactive samples. Send out specimens with Reactive results to [facility] for confirmation. Order the HIV antibody detection and differentiation: [id number] Performed By: #### L 3400.1610, L3890.6006, L509.8002, L7000.7000 #### [facility] [address] [place], [place], [address] HSV 2 Ab IA Qn (S)Ordered By : Polina Gracia on 02-08-2025 Herpes Simplex Virus II IgG Ab See comment [facility] Comment on above: RESULT: REACTIVEPl ease note reference interval changeCurrent guidelines and recommendations do not recommendroutine screening for HSV-2 in asymptomatic individuals,including those that are . The detection of HSV-2IgG antibodies in a single sample indicates previousexposure to HSV-2 but does not give information as to thesite of HSV infection or the timing of exposure. Thepredictive value of positive and negative results dependson the population's prevalence and the pretest likelihoodof HSV-2. HSV-2 IgG testing performed using the [employer]csys HSV-2 IgG assay.Performed at: [facility] [id number] Director: Hailey Marsh MD, Phone: [phone] at: [facility] [id number] Director: Lux Moscoso PhD, Phone: [phone] Hepatitis C viral load measu rementOrdered By: Polina Gracia on 02-08-2025 Hepatitis C RNA (PCR) IU log10 TNP [facility] Comment on above: Test not performed Herpes simplex virus (HSV) t ype 1 IgG antibody assayOrdered By: Polina Gracai on 02-08-2025 Herpes Simplex Virus I IgG Antibody See comment [facility] Comment on above: RESULT: NON REACTIVE Please note reference interval changeHSV-1 IgG testing performed using the [employer] HSV-1IgG assay. Neisseria gonorrhoeae nuclei c acid detection by amplified probe techniqueOrdered By: Polina Gracia on 02-08-2025 N. gonorrhoeae DNA ALFONSO+probe Ql (Unsp spec) Negative Negative [facility] Comment on above: Performed at: =G - [address] [id number] Director: Tereza Lam MD, Phone: [phone] No Panel InformationOrdered By: Polina Gracia on 02-08-2025 HIV (1&2) Antibody Non-Reactive Nonreactive [facility] Comment on above: Non-ReactiveReactive Repeatedly reactive samples must be confirmed according to CDC recommended confirmatory algorithms. The subresults for either HIVAG or AHIV can be used as an aid in the selection of the confirmation algorithm for reactive samples.Send out specimens with Reactive results to [facility] for confirmation.Order the HIV antibody detection and differentiation: #[id number] Ui Software Developer Office Visit Reporton 02-08-2025 Ui Software Developer Office Visit Report [facility] [address], [address] [place] [address] OFFICE VISIT Date of Service: 02/08/25 MR#: [id number] Acct: [id number] Name: SHIRLEYCATERINA EDER Rep #: [id number] : 1995 Provider: WILLIAM bernal Age/Sex: 29/F [place] [facility] [place]: Signed Intake Vital Signs 05/28/24 15:45 02/08/25 10:26 02/08/25 10:32 Height 5 ft 8 in 5 ft 8 in 5 ft 8 in Weight: 193 lb 184 lb 6 oz BMI 29.3 28.0 BP 138/83 H 122/82 H Intake Visit Reasons: STD testing Chief Complaint: STD testing Refuge Manager Required: No Is patient in pain?: No Allergies No Known Allergies Allergy (Verified 02/08/25 10:26) Medications ???Medication ???Instructions ???Recorded ???Confirmed ???Type NK 02/08/25 02/08/25 History Is last menstrual period known: Yes Last Menstrual Period: 01/23/25 Post menopausal: No Patient : No : No [facility] Medical History (Updated 02/08/25 @ 10:45 by Polina Gracia CARDIAC CATHETERIZATION TECHNICIAN, WILLIAM) Status post elective Retained products of conception Abnormal vaginal bleeding Retained products of conception with hemorrhage History of ectopic Ectopic Alopecia Surgical History Status post dilatation and curettage H/O unilateral salpingectomy H/O oophorectomy No significant past medical history Social History Smoking Status: Never smoker second hand exposure: Yes alcohol intake: current details: social substance use type: does not use caffeine: No what type of physical activity do you participate in: none seatbelt use: always do you feel safe at home: Yes additional social history: [facility]- Home health care HPI STD testing Details: CATERINA WATSON is a 29 year old who presents for pap and STD evaluation. Denies symptoms. New partner. No contraception and ok. Female Reproductive History Last Menstrual Period: 01/23/25 History 3 Elective abortions 1 Hx Para 1 Spontaneous abortions Hx # Term Pregnancies Ectopic pregnancies 1 Hx # Pregnancies Multiple births # of living children 1 Past Pregnancies Del. Date Name GA/Weeks Outcome Route Bth Weight Infant Gen Labor Lgth Anesthesia Del Locatn Provider FOB 12/24/19 Flavia 39 live - full term Female epidural WC JENNIFER Delivery Date: 12/24/19 Last Updated by: Luh Simons IOL [place] ROS Const Constitutional: Reports system reviewed and no additional complaints, except as documented Eyes Eyes: Reports system reviewed and no additional complaints, except as documented GI GI: Denies abdominal pain or change in bowel habits : Reports as per HPI Exam Const General: cooperative and no acute distress Orientation: oriented x3 General: bladder normal to palpation External Female Exam: normal external appearance and normal appearance of the urethra Urethra: normal appearance of the urethra Speculum Exam - Vagina: normal appearance of the vagina, normal vaginal discharge, no lesions and nontender Speculum Exam - Cervix: normal appearance of the cervix Bimanual Exam- Vagina Uterus: normal bimanual exam, uterine size normal, bladder normal to palpation, uterine shape normal, uterine mobility normal and non-tender Bimanual Exam- Adnexa, other: normal adnexae, no masses and non-tender Coding Level of Care Code Off vis,est,level 3 Diagnoses Possible exposure to STD Z20.2 Pap smear for cervical cancer screening Z12.4 Assessment and Plan Assessment and Plan (1) Possible exposure to STD: (2) Pap smear for cervical cancer screening: Orders: Orders POC Trichomonas Vaginalis Today Z11.3 - Encounter for screening for infections with a predominantly sexual mode of transmission, Z20.2 - Contact with and (suspected) exposure to infections with a predominantly sexual mode of transmission PAP I-G w/rfx hrHPV-Aptima Today Z12.4 - Encounter for screening for malignant neoplasm of cervix HSV 1 2 IgG Today Z20.2 - Contact with and (suspected) exposure to infections with a predominantly sexual mode of transmission HIV Today Z20.2 - Contact with and (suspected) exposure to infections with a predominantly sexual mode of transmission Syphilis Antibodies Today Z20.2 - Contact with and (suspected) exposure to infections with a predominantly sexual mode of transmission Chlamydia/GC ALFONSO aptima Today Z20.2 - Contact with and (suspected) exposure to infections with a predominantly sexual mode of transmission Hepatitis C,RNA PCR Viral Load Today Z20.2 - Contact with and (suspected) exposure to infections with a predominantly sexual mode of transmission Plan thin prep pap MARTIN trich, G (more content not included)... Normal [facility] Syphilis Antibodieson 2024 Syphilis Abs Non-Reactive Normal Nonreactive [facility] Comment on above: Performed By: #### L 3400.1610, L3890.6006, L509.8002, L7000.7000 #### [facility] [address] [place], [address] T. pallidum abOrdered By: Kwabena Gracia on 02-08-2025 Syphilis Total Antibody Non-Reactive Nonreactiv e [facility] CNOVon 07-15-2024 CNOV Office Visit (UCWSTR) CATERINA WATSON ([id number]) 1995 F Date Time Provider Department 07/15/24 5:00 PM DIETER ESQUEDA [facility] During your visit today, we recorded the following information about you: Temperature Pulse Respiration Blood pressure 98.3 degrees 64/minute 18/minute 118/81 Weight Last Period 86 kg 06/11/24 Dieter Esqueda APRN.CARPET SEWER 07/15/2024 5:11 PM Signed Subjective HPI Nontoxic-appearing female presents urgent care chief complaint pharyngitis. Duration of symptom 1 week. Associated symptoms sore throat swollen tonsils. History of strep throat this feels similar. No OTC medication use. No difficulty swallowing his secretions decreased range of motion of neck. Denies any fever body aches chills productive cough chest pain shortness of breath pleuritic pain hemoptysis nausea vomiting abdominal pain change in bowel or bladder habits. Past medical history prescription medication use and allergies reviewed. .Patient presents with: Sore Throat: R side worse and swollen tonsil x 1 week History reviewed. No pertinent past medical history. History reviewed. No pertinent surgical history. ALLERGIES Seasonal Allergies MEDICATIONS No prescriptions on file. FAMILY HISTORY Problem Relation Age of Onset None Mother None Father Social History Tobacco Use Smoking status: Never Smokeless tobacco: Never Substance Use Topics Alcohol use: Yes Comment: rare Drug use: No BP 118/81 Pulse 64 Temp 36.8 ?C (98.3 ?F) Resp 18 Wt 86 kg (189 lb 9.5 oz) LMP 06/11/2024 (Exact Date) SpO2 99% BMI 29.26 kg/m? Review of Systems Constitutional: Negative for chills, fever and malaise/fatigue. HENT: Positive for sore throat. Negative for congestion, ear discharge, ear pain and sinus pain. Eyes: Negative for blurred vision, pain, discharge and redness. Respiratory: Negative for cough, hemoptysis, sputum production, shortness of breath, wheezing and stridor. Cardiovascular: Negative for chest pain. Gastrointestinal: Negative for abdominal pain, diarrhea, nausea and vomiting. Musculoskeletal: Negative for myalgias. Skin: Negative for itching and rash. Neurological: Negative for dizziness and headaches. Objective Physical Exam Constitutional: General: She is not in acute distress. Appearance: She is not diaphoretic. HENT: Head: Normocephalic. Jaw: No trismus, tenderness, swelling or pain on movement. Mouth/Throat: Mouth: Mucous membranes are moist. Pharynx: Oropharynx is clear. Uvula midline. Posterior oropharyngeal erythema present. No pharyngeal swelling, oropharyngeal exudate or uvula swelling. Tonsils: No tonsillar exudate or tonsillar abscesses. 0 on the right. 0 on the left. Eyes: Conjunctiva/sclera: Conjunctivae normal. Pupils: Pupils are equal, round, and reactive to light. Cardiovascular: Rate and Rhythm: Normal rate and regular rhythm. Heart sounds: Normal heart sounds. Pulmonary: Effort: Pulmonary effort is normal. No tachypnea, accessory muscle usage or respiratory distress. Breath sounds: Normal breath sounds. No stridor. No wheezing, rhonchi or rales. Abdominal: General: There is no distension. Palpations: Abdomen is soft. Tenderness: There is no abdominal tenderness. There is no guarding or rebound. Musculoskeletal: Cervical back: Normal range of motion and neck supple. No edema, erythema, rigidity or tenderness. No pain with movement. Normal range of motion. Lymphadenopathy: Cervical: No cervical adenopathy. Skin: General: Skin is warm and dry. Neurological: Mental Status: She is alert and oriented to person, place, and time. ASSESSMENT/PLAN: 1. Sore throat - ICD9: 462, ICD10: J02.9 - STREP A MOLECULAR (POC) Strep test negative. Diagnosed with viral pharyngitis. No evidence of bacterial faction noted on today's exam. Patient was educated on supportive therapies. Patient will follow up with primary care provider as needed. Patient was instructed to immediately proceed to emergency room for any new, worsening, or symptoms lasting longer than anticipated. The patient's clinical presentation is otherwise unremarkable at this time. Based on exam and clinical finding, the patient is stable for discharge. Plan of care was discussed with patient. Patient verbalizes understanding and agrees to plan of care. This note was generated using [employer] software. It may contain errors in wording, punctuation, or spelling. Dieter Esqueda APRN.SHANI Allergies As of Date: 07/15/2024 Noted Allergy Reaction SEASONAL ALLERGIES 05/02/2014 14 - Other: See Comments Comments: Nasal congestion Date Reviewed: 07/15/2024 Reviewed by: Dieter Esqueda APRN.CARPET SEWER - Fully Assessed Reason for Visit: Sore Throat [200] Cmt: R side worse and swollen tonsil x 1 week Primary Visit Diagnosis:Sore throat [J02.9] Order(s):STREP A (more content not included)... Normal [facility] STREP A MOLECULAR (POC)on Procedural Control Valid [facility] Strep A (POCT) Negative Negative [facility] CNOVon 03-15-2024 CNOV Office Visit (UCWSTR) CATERINA WATSON ([id number]) 1995 F Date Time Provider Department 03/15/24 1:15 PM CAROLYN LORENZO AYAN During your visit today, we recorded the following information about you: Temperature Pulse Respiration Blood pressure 98.7 degrees 69/minute 16/minute 122/72 Weight Last Period 82.7 kg 03/14/24 Carolyn Lorenzo APRN.CARPET SEWER 03/15/2024 1:38 PM Signed Subjective HPI HPI Caterina Watson is a 28 year old female who presents today for CC of st, congestion. This started 2 days ago. Has tried 2 days ago. Symptoms are worsened by otc medication for relief. Risk factors nothing, sick exposures at home. Nonsmoker. Denies possibility of being . .Patient presents with: Sore Throat: Congestion and pressure x2 days No past medical history on file. No past surgical history on file. ALLERGIES Seasonal Allergies MEDICATIONS amoxicillin (AMOXIL) 500 mg capsule Take 1 capsule by mouth two times a day for 10 days. FAMILY HISTORY Problem Relation Age of Onset None Mother None Father Social History Tobacco Use Smoking status: Never Smokeless tobacco: Never Substance Use Topics Alcohol use: Yes Comment: rare Drug use: No Review of Systems Constitutional: Negative for fever. HENT: Positive for congestion and sore throat. Negative for ear pain and nosebleeds. Respiratory: Negative for cough, shortness of breath and wheezing. Musculoskeletal: Negative for neck pain. Skin: Negative for itching and rash. Objective Blood pressure 122/72, pulse 69, temperature 37.1 ?C (98.7 ?F), resp. rate 16, weight 82.7 kg (182 lb 5.1 oz), last menstrual period 03/14/2024, SpO2 98%. Physical Exam Constitutional: General: She is not in acute distress. Appearance: She is not toxic-appearing or diaphoretic. HENT: Head: Normocephalic and atraumatic. Right Ear: Hearing, tympanic membrane, ear canal and external ear normal. Left Ear: Hearing, tympanic membrane, ear canal and external ear normal. Nose: Nose normal. Mouth/Throat: Pharynx: Uvula midline. Posterior oropharyngeal erythema present. No pharyngeal swelling, oropharyngeal exudate or uvula swelling. Eyes: General: Lids are normal. No scleral icterus. Right eye: No discharge. Left eye: No discharge. Conjunctiva/sclera: Conjunctivae normal. Pupils: Pupils are equal, round, and reactive to light. Neck: Trachea: Trachea normal. Cardiovascular: Rate and Rhythm: Normal rate and regular rhythm. Heart sounds: Normal heart sounds. Pulmonary: Effort: Pulmonary effort is normal. Breath sounds: Normal breath sounds. Musculoskeletal: Cervical back: Normal range of motion and neck supple. Lymphadenopathy: Cervical: No cervical adenopathy. Right cervical: No superficial cervical adenopathy. Left cervical: No superficial cervical adenopathy. Skin: Findings: No rash. Neurological: Mental Status: She is alert and oriented to person, place, and time. ASSESSMENT/PLAN: 1. Strep throat - ICD9: 034.0, ICD10: J02.0 (primary diagnosis) - suspect strep - Group A strep molecular testing positive - antibiotic as written - Discussed supportive care treatment with fluids, rest and analgesia. - The patient should follow up in 3-5 days if symptoms persist or worsen - Call back if drooling, increased temperature, symptoms of dehydration and/or still sick in one week - AMOXICILLIN 500 MG CAPSULE 2. Sore throat - ICD9: 462, ICD10: J02.9 Pos, strep - STREP A MOLECULAR (POC) Carolyn Lorenzo APRN.CNP Allergies As of Date: 03/15/2024 Noted Allergy Reaction SEASONAL ALLERGIES 05/02/2014 14 - Other: See Comments Comments: Nasal congestion Date Reviewed: 03/15/2024 Reviewed by: Carolyn Lorenzo APRN.[employer] - Fully Assessed Reason for Visit: Sore Throat [200] Cmt: Congestion and pressure x2 days Primary Visit Diagnosis:Strep throat [J02.0] Other Visit Diagnosis:Sore throat [J02.9] Order(s):STREP A MOLECULAR (POC) [4950922] Order #: [id number] amoxicillin (AMOXIL) 500 mg capsuleTake 1 capsule by mouth two times a day for 10 days.Disp: 20 capsuleRfl: 0 Prescriptions as of 03/15/2024 - amoxicillin (AMOXIL) 500 mg capsule Take 1 capsule by mouth two times a day for 10 days. Problem List As Of Date: 03/15/2024 (None) Prescriptions ordered this encounter Disp Refills Start End AMOXICILLIN 500 MG CAPSULE 20 c* 0 03/15/2024 03/25/2024 Route: ORAL Sig: Take 1 capsule by mouth two times a day for 10 days. Letter Text Encounter Status:Closed by CAROLYN LORENZO on 03/15/24 Normal [facility] STREP A MOLECULAR (POC)on Interpretation and review of laboratory results Abnormal [facility] Procedural Control Valid [facility] Strep A (POCT) Positive Abnormal Negative [facility] Chlamydia trachomatis rRNA d etection by probe and target amplification methodOrdered By: Marylu Rizzo on 09-08-2023 C. trachomatis rRNA ALFONSO+probe Ql (Unsp spec) Negative Negative [facility] Gram stain for investigation of transfusion reactionOrdered By: Marylu Rizzo on 09-08-2023 Microscopic observation Gram stain Nom (Unsp spec) [facility] HIV 1 and HIV-2 antibody ass ay with HIV-1 p24 antigen detectionOrdered By: Marylu Rizzo on 09-08-2023 HIV 1+2 Ab+HIV1 p24 Ag IA Ql Non-Reactive Nonreactive [facility] Laboratory - Microbiology an d Antimicrobial susceptibilityOrdered By: Marylu Rizzo on 09-08-2023 N. gonorrhoeae DNA ALFONSO+probe Ql (Unsp spec) Negative Negative [facility] Comment on above: Performed at: =[address] [id number] Director: Tereza Lam MD, Phone: [phone] No Panel InformationOrdered By: Marylu Rizzo on 09-08-2023 Hepatitis B Surface Antigen Non-Reactive Nonreactive [facility] Hepatitis C Antibody Non-Reactive Nonreactive [facility] Comment on above: Non Reactive: < 0.8 Equivocal: >/= 0.8 to < 1.0 Reactive: >/= 1.0The CDC recommends that a reactive/equivocal HCV antibody result be followed up by the HCV Nucleic Acid Amplificationtest (824256) Serum Treponema species anti body detectionOrdered By: Marylu Rizzo on 09-08-2023 Treponema sp Ab Ql (S) Non-Reactive [facility] Chlamydia trachomatis rRNA d etection by probe and target amplification methodOrdered By: Phylicia Bishop on 05-21-2023 C. trachomatis rRNA ALFONSO+probe Ql (Unsp spec) Negative Negative [facility] Gram stain for investigation of transfusion reactionOrdered By: Phylicia Bishop on 05-21-2023 Microscopic observation Gram stain Nom (Unsp spec) [facility] Microscopic observation Gram stain Nom (Unsp spec) [facility] Laboratory - Microbiology an d Antimicrobial susceptibilityOrdered By: Phylicia Bishop on 05-21-2023 N. gonorrhoeae DNA ALFONSO+probe Ql (Unsp spec) Negative Negative [facility] Comment on above: Performed at: =G - [address], [place] [id number] Director: Tereza Lam MD, Phone: [phone] No Panel Informationon 05-21 POC Trichomonas (Rapid) Negative [facility] Thin prep Papanicolaou smear with manual screeningOrdered By: Phylicia Bishop on 05-21-2023 Genital Culture Presumptive C albicans [facility] Genital Culture G. vaginalis (Presumptive) [facility] Genital Culture Presumptive C albicans [facility] Genital Culture G. vaginalis (Presumptive) [facility] Absolute lymphocyte countOrd ered By: Phylicia Bishop on 04-30-2023 Lymphocytes Auto (Unsp spec) [#/Vol] 1.83 10*3/uL 0.83-4.51 [facility] Absolute lymphocyte countOrd ered By: Alexx Melvin on 04-30-2023 Lymphocytes Auto (Unsp spec) [#/Vol] 2.75 10*3/uL 0.83-4.51 [facility] Basophil percentageOrdered B y: Phylicia Bishop on 04-30-2023 Basophils/100 WBC (Bld) 0.3 % 0-1 [facility] Eosinophils/100 WBC (Bld) 1.1 % 0-5 [facility] Neutrophils (Bld) [#/Vol] 6.6 10*3/uL 2.0-7.7 [facility] Neutrophils/100 WBC (Bld) 71.4 % 47-70 [facility] WBC (Bld) [#/Vol] 9.2 10*3/uL 4.4-11.0 [facility] Basophil percentageOrdered B y: Alexx Melvin on 04-30-2023 Basophils/100 WBC (Bld) 0.4 % 0-1 [facility] Eosinophils/100 WBC (Bld) 1.4 % 0-5 [facility] Neutrophils (Bld) [#/Vol] 9.3 10*3/uL 2.0-7.7 [facility] Neutrophils/100 WBC (Bld) 69.5 % 47-70 [facility] WBC (Bld) [#/Vol] 13.4 10*3/uL 4.4-11.0 [facility] Blood erythrocytes count (nu mber/volume)Ordered By: Phylicia Bishop on 04-30-2023 RBC (Bld) [#/Vol] 2.75 10*6/uL 4.2-5.4 [facility] Blood erythrocytes count (nu mber/volume)Ordered By: Alexx Melvin on 04-30-2023 RBC (Bld) [#/Vol] 4.16 10*6/uL 4.2-5.4 [facility] Blood hemoglobin measurement (mass/volume)Ordered By: Phylicia Bishop on 04-30-2023 Hemoglobin (Bld) [Mass/Vol] 8.3 g/dL 12.0-15.0 [facility] Blood hemoglobin measurement (mass/volume)Ordered By: Alexx Melvin on 04-30-2023 Hemoglobin (Bld) [Mass/Vol] 12.1 g/dL 12.0-15.0 [facility] Blood lymphocytes/100 leukoc ytesOrdered By: Phylicia Bishop on 04-30-2023 Lymphocytes/100 WBC (Bld) 19.9 % - [facility] Blood lymphocytes/100 leukoc ytesOrdered By: Alexx Melvin on 04-30-2023 Lymphocytes/100 WBC (Bld) 20.5 % - [facility] Blood monocytes/100 leukocyt esOrdered By: Phylicia Bishop on 04-30-2023 Monocytes/100 WBC (Bld) 7.0 % 0-10 [facility] Blood monocytes/100 leukocyt esOrdered By: Alexx Melvin on 04-30-2023 Monocytes/100 WBC (Bld) 7.8 % 0-10 [facility] Blood platelet mean volumeOr dered By: Phylicia Bishop on 04-30-2023 Platelet mean volume (Bld) [Entitic vol] 10.7 fL 6.2-12.0 [facility] Blood platelet mean volumeOr dered By: Alexx Melvin on 04-30-2023 Platelet mean volume (Bld) [Entitic vol] 10.8 fL 6.2-12.0 [facility] Determination of erythrocyte mean corpuscular volume (MCV)Ordered By: Phylicia Bishop on 04-30-2023 MCV (RBC) [Entitic vol] 88.0 fL 81-99 [facility] Determination of erythrocyte mean corpuscular volume (MCV)Ordered By: Alexx Melvin on 04-30-2023 MCV (RBC) [Entitic vol] 87.5 fL 81-99 [facility] Hematocrit Auto (Bld) [Volum e fraction]Ordered By: Phylicia Bishop on 04-30-2023 Hematocrit (Bld) [Volume fraction] 24.2 % 37-47 [facility] Hematocrit Auto (Bld) [Volum e fraction]Ordered By: Alexx Melvin on 04-30-2023 Hematocrit (Bld) [Volume fraction] 36.4 % 37-47 [facility] Laboratory - Hematology and Cell countsOrdered By: Phylicia Bishop on 04-30-2023 Erythrocyte distribution width (RBC) [Entitic vol] 45.4 fL 35.1-43.9 [facility] Erythrocyte distribution width (RBC) [Ratio] 14.3 % 11.6-14.6 [facility] Immature granulocytes/100 WBC (Bld) 0.300 % 0.0-0.9 [facility] Comment on above: IG% - Immature Granu locytes (promyelocytes, myelocytes and metamyelocytes) > 1% indicates that a LEFT SHIFT is Present. MCH (RBC) [Entitic mass] 30.2 pg 27.0-32.0 [facility] Nucleated RBC/100 WBC (Bld) [Ratio] 0 % 0-5 [facility] Laboratory - Hematology and Cell countsOrdered By: Alexx Melvin on 04-30-2023 Erythrocyte distribution width (RBC) [Entitic vol] 45.3 fL 35.1-43.9 [facility] Erythrocyte distribution width (RBC) [Ratio] 14.4 % 11.6-14.6 [facility] Immature granulocytes/100 WBC (Bld) 0.400 % 0.0-0.9 [facility] Comment on above: IG% - Immature Granu locytes (promyelocytes, myelocytes and metamyelocytes) > 1% indicates that a LEFT SHIFT is Present. MCH (RBC) [Entitic mass] 29.1 pg 27.0-32.0 [facility] Nucleated RBC/100 W[facility] (Bld) [Ratio] 0 % [facility] [[facility]/Vol]Or dered By: Phylicia Bishop on 04-30-2023 MCHC (RBC) [Mass/Vol] 34.3 g/dL 32-36 [facility] MCHC Auto (RBC) [Mass/Vol]Or dered By: Alexx Melvin on 04-30-2023 MCHC (RBC) [Mass/Vol] 33.2 g/dL 32-36 [facility] Platelets bldOrdered By: Grisel Bishop on 04-30-2023 Platelets (Bld) [#/Vol] 176 10*3/uL 150-450 [facility] Platelets bldOrdered By: Dandy Melvin on 04-30-2023 Platelets (Bld) [#/Vol] 309 10*3/uL 150-450 [facility] Serum or plasma choriogonado tropin detectionOrdered By: Alexx Melvin on 04-30-2023 HCG ( test) Ql 1732 mIU/mL <4 [facility] Comment on above: hCG levels with Gest ational AgeGestational Age hCG mIU/mL (IU/L)0.2 - 1 week 5 - 501-2 weeks 50 - 5002-3 weeks 100 - 09119-4 weeks 500 - 066009-9 weeks 1000 - 650244-4 weeks 71531 - 100,0006-8 weeks 60858 - 200,0002-3 months 22526 - 100,000 Serum heterophile antibody d etectionOrdered By: Maribell May on 04-03-2023 Heterophile Ab Ql (S) Negative Negative [facility] STREP A MOLECULAR (POC)on Procedural Control Valid [facility] Strep A (POCT) Negative Negative [facility] Chlamydia trachomatis rRNA d etection by probe and target amplification methodOrdered By: Marylu Rizzo on 01-15-2023 C. trachomatis rRNA ALFONSO+probe Ql (Unsp spec) Negative Negative [facility] Laboratory - Microbiology an d Antimicrobial susceptibilityOrdered By: Marylu Rizzo on 01-15-2023 N. gonorrhoeae DNA ALFONSO+probe Ql (Unsp spec) Negative Negative [facility] Comment on above: Performed at: =G - [address] [id number] Director: Tereza Lam MD, Phone: [phone] No Panel Informationon 01-15 POC Bacterial Vaginitis (Rapid) Negative [facility] POC Trichomonas (Rapid) Negative [facility] Serum or plasma choriogonado tropin detectionon 07-11-2022 HCG ( test) Ql 18 mIU/mL <4 [facility] Work Phone: Comment on above: hCG levels with Gest ational AgeGestational Age hCG mIU/mL (IU/L)0.2 - 1 week 5 - 501-2 weeks 50 - 5002-3 weeks 100 - 92221-3 weeks 500 - 077430-1 weeks 1000 - 205248-0 weeks 41143 - 100,0006-8 weeks 69102 - 200,0002-3 months 21877 - 100,000 Serum or plasma choriogonado tropin detectionon 07-03-2022 HCG ( test) Ql 44 mIU/mL <4 [facility] Work Phone: Comment on above: hCG levels with Gest ational AgeGestational Age hCG mIU/mL (IU/L)0.2 - 1 week 5 - 501-2 weeks 50 - 5002-3 weeks 100 - 47338-0 weeks 500 - 490391-9 weeks 1000 - 199149-2 weeks 76516 - 100,0006-8 weeks 48490 - 200,0002-3 months 14091 - 100,000 Serum or plasma choriogonado tropin detectionon 07-01-2022 HCG ( test) Ql 79 mIU/mL <4 [facility] Work Phone: Comment on above: hCG levels with Gest ational AgeGestational Age hCG mIU/mL (IU/L)0.2 - 1 week 5 - 501-2 weeks 50 - 5002-3 weeks 100 - 45678-1 weeks 500 - 328622-2 weeks 1000 - 821585-4 weeks 78427 - 100,0006-8 weeks 67305 - 200,0002-3 months 28125 - 100,000 Absolute lymphocyte counton 06-25-2022 Lymphocytes Auto (Unsp spec) [#/Vol] 1.86 10*3/uL 0.83-4.51 [facility] Work Phone: Basophil percentageon 2021 Basophil percentage 0 SEEN /hpf 0-5 [facility] Work Phone: Basophils/100 WBC (Bld) 0.5 % 0-1 [facility] Work Phone: Chloride [Moles/Vol] 108 mmol/L 98-107 [facility] Work Phone: Eosinophils/100 WBC (Bld) 0.8 % 0-5 [facility] Work Phone: Glucose [Mass/Vol] 102 mg/dL 74-106 [facility] Work Phone: Comment on above: Fasting Glucose resu lt from 100 to 125 mg/dL suggests IMPAIRED HOMEOSTASIS per A.D.A. criteria. Lactate [Moles/Vol] 0.7 mmol/L 0.4-2.0 [facility] Work Phone: Neutrophils (Bld) [#/Vol] 9.2 10*3/uL 2.0-7.7 [facility] Work Phone: Neutrophils/100 WBC (Bld) 77.1 % 47-70 [facility] Work Phone: Potassium [Moles/Vol] 3.7 mmol/L 3.5-5.1 [facility] Work Phone: Sodium [Moles/Vol] 141 mmol/L 136-145 [facility] Work Phone: WBC (Bld) [#/Vol] 11.9 10*3/uL 4.4-11.0 [facility] Work Phone: Beta hCG serum qualon 2021 Beta HCG ( test) Ql Negative [facility] Work Phone: Comment on above: TEST is *P OSITIVE* Bilirubin Test strip Ql (U)o n 06-25-2022 Bilirubin Ql (U) Negative Negative [facility] Work Phone: Blood erythrocytes count (nu mber/volume)on 06-25-2022 RBC (Bld) [#/Vol] 4.48 10*6/uL 4.2-5.4 [facility] Work Phone: Blood hemoglobin measurement (mass/volume)on 06-25-2022 Hemoglobin (Bld) [Mass/Vol] 13.4 g/dL 12.0-15.0 [facility] Work Phone: Blood lymphocytes/100 leukoc yteson 06-25-2022 Lymphocytes/100 WBC (Bld) 15.6 % 19-41 [facility] Work Phone: [phone] Blood monocytes/100 leukocyt eson 06-25-2022 Monocytes/100 WBC (Bld) 5.6 % 0-10 [facility] Work Phone: [phone] Blood platelet mean volumeon 06-25-2022 Platelet mean volume (Bld) [Entitic vol] 11.2 fL 6.2-12.0 [facility] Work Phone: Determination of erythrocyte mean corpuscular volume (MCV)on 06-25-2022 MCV (RBC) [Entitic vol] 86.8 fL 81-99 [facility] Work Phone: [phone] Hematocrit Auto (Bld) [Volum e fraction]on 06-25-2022 Hematocrit (Bld) [Volume fraction] 38.9 % 37-47 [facility] Work Phone: [phone] Ketones Test strip Ql (U)on 06-25-2022 Ketones Ql (U) Negative Negative [facility] Work Phone: [phone] Laboratory - Chemistry and C hemistry - challengeon 06-25-2022 CO2 [Moles/Vol] 27.0 mmol/L 21.0-32.0 [facility] Work Phone: Urea nitrogen/Creatinine [Mass ratio] 19.6 mg/mg 10-20 [facility] Work Phone: [phone] Laboratory - Hematology and Cell countson 06-25-2022 Erythrocyte distribution width (RBC) [Entitic vol] 41.3 fL 35.1-43.9 [facility] Work Phone: [phone] Erythrocyte distribution width (RBC) [Ratio] 13.2 % 11.6-14.6 [facility] Work Phone: [phone] Immature granulocytes/100 WBC (Bld) 0.400 % 0.0-0.9 [facility] Work Phone: [phone] Comment on above: IG% - Immature Granu locytes (promyelocytes, myelocytes and metamyelocytes) > 1% indicates that a LEFT SHIFT is Present. MCH (RBC) [Entitic mass] 29.9 pg 27.0-32.0 [facility] Work Phone: [phone] Nucleated RBC/100 WBC (Bld) [Ratio] 0 % 0-5 [facility] Work Phone: [phone] MCHC Auto (RBC) [Mass/Vol]on 06-25-2022 MCHC (RBC) [Mass/Vol] 34.4 g/dL 32-36 [facility] Work Phone: [phone] Mucus LM Ql (Urine sed)on Mucus Ql (Urine sed) 0 SEEN /hpf [facility] Work Phone: [phone] Nitrite Test strip Ql (U)on 06-25-2022 Nitrite Ql (U) Negative Negative [facility] Work Phone: [phone] No Panel Informationon 06-25 Urine Transitional Epithelial Cells 0 SEEN /hpf 0-5 [facility] Work Phone: [phone] Estimated Creatinine Clearance Calc 114.86 ml/min [facility] Work Phone: [phone] Estimated GFR (MDRD) Amer 118 mL/min >60 [facility] Work Phone: [phone] Comment on above: GFR Calc Estimated GFR (MDRD) Non-Af Amer 97 mL/min >60 [facility] Work Phone: [phone] Comment on above: Non- GFR Calc Platelets bldon 06-25-2022 Platelets (Bld) [#/Vol] 236 10*3/uL 150-450 [facility] Work Phone: [phone] Protein Test strip Ql (U)on 06-25-2022 Protein Ql (U) Negative Negative [facility] Work Phone: [phone] Serum or plasma calcium alda urement (mass/volume)on 06-25-2022 Calcium [Mass/Vol] 9.1 mg/dL 8.5-10.1 [facility] Work Phone: Serum or plasma choriogonado tropin detectionon 06-25-2022 HCG ( test) Ql 1008 mIU/mL <4 [facility] Work Phone: Comment on above: hCG levels with Gest ational AgeGestational Age hCG mIU/mL (IU/L)0.2 - 1 week 5 - 501-2 weeks 50 - 5002-3 weeks 100 - 94775-5 weeks 500 - 077937-6 weeks 1000 - 920597-3 weeks 95148 - 100,0006-8 weeks 77381 - 200,0002-3 months 61287 - 100,000 Serum or plasma creatinine m easurement (mass/volume)on 06-25-2022 Creatinine [Mass/Vol] 0.76 mg/dL 0.55-1.02 [facility] Work Phone: Comment on above: The validity of the calculated GFR & GFRAA in patients over 70 years has not been determined. Clinical correlation is essential. Serum or plasma urea nitroge n measurement (mass/volume)on 06-25-2022 Urea nitrogen [Mass/Vol] 15 mg/dL 7-18 [facility] Work Phone: [phone] Squamous epithelial cells de tection in urine sediment by light microscopyon 06-25-2022 Epithelial cells.squamous LM Ql (Urine sed) 0-5 SEEN /hpf 5-10 [facility] Work Phone: [phone] Thin prep Papanicolaou smear with manual screeningon 06-25-2022 Thin prep Papanicolaou smear with manual screening 6 5-15 [facility] Work Phone: [phone] Urine blood detectionon 06-04 RBC Ql (U) Negative Negative [facility] Work Phone: [phone] RBC Ql (U) 0 SEEN /hpf 0-5 [facility] Work Phone: Urine clarityon 06-25-2022 Clarity (U) Clear Clear [facility] Work Phone: Urine color determinationon 06-25-2022 Color (U) Straw Yellow [facility] Work Phone: Urine glucose detectionon Glucose Ql (U) Normal mg/dl Normal [facility] Work Phone: Urine leukocyte esterase det ection by dipstickon 06-25-2022 Leukocyte esterase Test strip Ql (U) Negative Negative [facility] Work Phone: Urine pHon 06-25-2022 pH (U) 7.0 [pH] 5.0 - 8.0 [facility] Work Phone: Urine sediment bacteria coun t by microscopy (number/high power field)on 06-25-2022 Bacteria LM.HPF (Urine sed) [#/Area] 0 /[HPF] None Seen [facility] Work Phone: Urine specific gravity measu rementon 06-25-2022 Specific gravity (U) [Rel density] 1.010 1.002-1.030 [facility] Work Phone: Urobilinogen Auto test strip Ql (U)on 06-25-2022 Urobilinogen Ql (U) Normal mg/dl Normal [facility] Work Phone: Chlamydia trachomatis rRNA d etection by probe and target amplification methodon 01-15-2022 C. trachomatis rRNA ALFONSO+probe Ql (Unsp spec) Positive Negative [facility] Work Phone: Comment on above: RESULTS CALLED TO RAAFT LEDEZMA 01/18/22 Carly Alvarenga.REPORT READ BACK BY SAME. Gram stain for investigation of transfusion reactionon 01-15-2022 Microscopic observation Gram stain Nom (Unsp spec) [facility] Work Phone: Laboratory - Microbiology an d Antimicrobial susceptibilityon 01-15-2022 N. gonorrhoeae DNA ALFONSO+probe Ql (Unsp spec) Negative Negative [facility] Work Phone: Comment on above: Performed at: = - [address] [place] [id number] Director: Tereza Lam MD, Phone: [phone] No Panel Informationon 01-15 POC Bacterial Vaginitis (Rapid) Positive [facility] Work Phone: POC Trichomonas (Rapid) Negative [facility] Work Phone: Thin prep Papanicolaou smear with manual screeningon 01-15-2022 Genital Culture G. vaginalis (Presumptive) [facility] Work Phone: Vital Signs Date Time Vital Sign Value Performing Clinician Facility 08-10-2025 15:10-0400 Body height 172.72 cm No Primary Care Physician [facility] 08-10-2025 15:05-0400 Body mass index (BMI) [Ratio] 26.4 kg/m2 No Primary Care Physician [facility] 08-10-2025 15:05-0400 Body weight 78.98 kg No Primary Care Physician [facility] 08-10-2025 15:05-0400 Diastolic blood pressure 84 mm[Hg] No Primary Care Physician [facility] 08-10-2025 15:05-0400 Systolic blood pressure 130 mm[Hg] No Primary Care Physician [facility] 02-08-2025 10:32-0400 Body height 172.72 cm No Primary Care Physician [facility] 02-08-2025 10:26-0400 Body mass index (BMI) [Ratio] 28 kg/m2 No Primary Care Physician [facility] 02-08-2025 10:26-0400 Body weight 83.63 kg No Primary Care Physician [facility] 02-08-2025 10:26-0400 Diastolic blood pressure 82 mm[Hg] No Primary Care Physician [facility] 02-08-2025 10:26-0400 Systolic blood pressure 122 mm[Hg] No Primary Care Physician [facility] 07-15-2024 17:02-0400 Body mass index (BMI) [Ratio] 29.26 kg/m2 Dieter Esqueda APRN.CNP Work Phone: [facility] 07-15-2024 17:02-0400 Body temperature 98.29 [degF] Dieter Esqueda OBSTETRICS TECH.[employer] Work Phone: [facility] 07-15-2024 17:02-0400 Body weight 86 kg Dieter Candacemanjurayshawn OBSTETRICS TECH.[employer] Work Phone: [facility] 07-15-2024 17:02-0400 Diastolic blood pressure 81 mm[Hg] Dieter Yin OBSTETRICS TECH.[employer] Work Phone: [facility] 07-15-2024 17:02-0400 Heart rate 64 /min Dieter Candacemanjurayshawn OBSTETRICS TECH.[employer] Work Phone: [facility] 07-15-2024 17:02-0400 Respiratory rate 18 /min Dieter Candacemanjurayshawn OBSTETRICS TECH.[employer] Work Phone: [facility] 07-15-2024 17:02-0400 SaO2% (BldA) [Mass fraction] 99 % Dieter Mariamanjurayshawn OBSTETRICS TECH.[employer] Work Phone: [facility] 07-15-2024 17:02-0400 Systolic blood pressure 118 mm[Hg] Dieter Mariamanjurayshawn OBSTETRICS TECH.[employer] Work Phone: [facility] 03-15-2024 13:11-0400 Body mass index (BMI) [Ratio] 28.13 kg/m2 Carolyn Lorenzo OBSTETRICS TECH.[employer] Work Phone: [facility] 03-15-2024 13:11-0400 Body temperature 98.71 [degF] Carolyn Lorenzo OBSTETRICS TECH.[employer] Work Phone: [facility] 03-15-2024 13:11-0400 Body weight 82.7 kg Carolyn Lorenzo OBSTETRICS TECH.[employer] Work Phone: [facility] 03-15-2024 13:11-0400 Diastolic blood pressure 72 mm[Hg] Carolyn Lorenzo OBSTETRICS TECH.[employer] Work Phone: [facility] 03-15-2024 13:11-0400 Heart rate 69 /min Carolyn Lorenzo OBSTETRICS TECH.[employer] Work Phone: [facility] 03-15-2024 13:11-0400 Respiratory rate 16 /min Carolyn Lorenzo OBSTETRICS TECH.[employer] Work Phone: [facility] 03-15-2024 13:11-0400 SaO2% (BldA) [Mass fraction] 98 % Carolyn Lorenzo OBSTETRICS TECH.[employer] Work Phone: [facility] 03-15-2024 13:11-0400 Systolic blood pressure 122 mm[Hg] Carolyn Lorenzo OBSTETRICS TECH.[employer] Work Phone: [facility] 09-08-2023 13:45-0500 Body height 172.72 cm No Primary Care Physician [facility] 09-08-2023 13:40-0500 Body mass index (BMI) [Ratio] 24.3 kg/m2 No Primary Care Physician [facility] 09-08-2023 13:40-0500 Body weight 72.57 kg No Primary Care Physician [facility] 09-08-2023 13:40-0500 Diastolic blood pressure 80 mm[Hg] No Primary Care Physician [facility] 09-08-2023 13:40-0500 Systolic blood pressure 118 mm[Hg] No Primary Care Physician [facility] 05-21-2023 16:01-0400 Body height 172.72 cm No Primary Care Physician [facility] 05-21-2023 16:01-0400 Body mass index (BMI) [Ratio] 22.9 kg/m2 No Primary Care Physician [facility] 05-21-2023 16:01-0400 Body weight 68.49 kg No Primary Care Physician [facility] 05-21-2023 16:01-0400 Diastolic blood pressure 83 mm[Hg] No Primary Care Physician [facility] 05-21-2023 16:01-0400 Systolic blood pressure 141 mm[Hg] No Primary Care Physician [facility] 04-30-2023 18:02-0400 Diastolic blood pressure 76 mm[Hg] No Primary Care Physician [facility] 04-30-2023 18:02-0400 Heart rate 97 /min No Primary Care Physician [facility] 04-30-2023 18:02-0400 Respiratory rate 18 /min No Primary Care Physician [facility] 04-30-2023 18:02-0400 SaO2% (BldA) [Mass fraction] 100 % No Primary Care Physician [facility] 04-30-2023 18:02-0400 Systolic blood pressure 114 mm[Hg] No Primary Care Physician [facility] 04-30-2023 17:55-0400 Body temperature 97.5 [degF] No Primary Care Physician [facility] 04-30-2023 16:03-0400 Body height 172.72 cm No Primary Care Physician [facility] 04-30-2023 16:03-0400 Body mass index (BMI) [Ratio] 22 kg/m2 No Primary Care Physician [facility] 04-30-2023 16:03-0400 Body weight 65.77 kg No Primary Care Physician [facility] 04-30-2023 15:00-0400 Diastolic blood pressure 68 mm[Hg] No Primary Care Physician [facility] 04-30-2023 15:00-0400 Heart rate 120 /min No Primary Care Physician [facility] 04-30-2023 15:00-0400 Systolic blood pressure 102 mm[Hg] No Primary Care Physician [facility] 04-30-2023 10:51-0400 Body temperature 96.2 [degF] No Primary Care Physician [facility] 04-03-2023 16:26-0400 Body height 172.72 cm No Primary Care Physician [facility] 04-03-2023 16:26-0400 Body mass index (BMI) [Ratio] 22.4 kg/m2 No Primary Care Physician [facility] 04-03-2023 16:26-0400 Body temperature 97.8 [degF] No Primary Care Physician [facility] 04-03-2023 16:26-0400 Body weight 66.9 kg No Primary Care Physician [facility] 04-03-2023 16:26-0400 Diastolic blood pressure 81 mm[Hg] No Primary Care Physician [facility] 04-03-2023 16:26-0400 Heart rate 99 /min No Primary Care Physician [facility] 04-03-2023 16:26-0400 Respiratory rate 17 /min No Primary Care Physician [facility] 04-03-2023 16:26-0400 SaO2% (BldA) [Mass fraction] 99 % No Primary Care Physician [facility] 04-03-2023 16:26-0400 Systolic blood pressure 112 mm[Hg] No Primary Care Physician [facility] 04-01-2023 15:22-0400 Body height 175.26 cm No Primary Care Physician [facility] 04-01-2023 15:22-0400 Body mass index (BMI) [Ratio] 21.5 kg/m2 No Primary Care Physician [facility] 04-01-2023 15:22-0400 Body temperature 97.5 [degF] No Primary Care Physician [facility] 04-01-2023 15:22-0400 Body weight 66.17 kg No Primary Care Physician [facility] 04-01-2023 15:22-0400 Diastolic blood pressure 87 mm[Hg] No Primary Care Physician [facility] 04-01-2023 15:22-0400 Heart rate 112 /min No Primary Care Physician [facility] 04-01-2023 15:22-0400 Respiratory rate 18 /min No Primary Care Physician [facility] 04-01-2023 15:22-0400 SaO2% (BldA) [Mass fraction] 98 % No Primary Care Physician [facility] 04-01-2023 15:22-0400 Systolic blood pressure 127 mm[Hg] No Primary Care Physician [facility] 03-31-2023 11:43-0400 Body temperature 98.01 [degF] Krislyn Aberegg PA Work Phone: [facility] 03-31-2023 11:43-0400 Body weight 65.77 kg Krislyn Aberegg PA Work Phone: [facility] 03-31-2023 11:43-0400 Diastolic blood pressure 74 mm[Hg] Krislyn Aberegg PA Work Phone: [facility] 03-31-2023 11:43-0400 Heart rate 114 /min Krislyn Aberegg PA Work Phone: [facility] 03-31-2023 11:43-0400 Respiratory rate 14 /min Krislyn Aberegg PA Work Phone: [facility] 03-31-2023 11:43-0400 SaO2% (BldA) [Mass fraction] 96 % Jimmy PONCE Work Phone: [facility] 03-31-2023 11:43-0400 Systolic blood pressure 116 mm[Hg] Jimmy PONCE Work Phone: [facility] 01-15-2023 14:43-0400 Body height 175.26 cm No Primary Care Physician [facility] 01-15-2023 14:41-0400 Body mass index (BMI) [Ratio] 22.1 kg/m2 No Primary Care Physician [facility] 01-15-2023 14:41-0400 Body weight 68.03 kg No Primary Care Physician [facility] 01-15-2023 14:41-0400 Diastolic blood pressure 79 mm[Hg] No Primary Care Physician [facility] 01-15-2023 14:41-0400 Systolic blood pressure 125 mm[Hg] No Primary Care Physician [facility] 07-11-2022 08:41-0400 Body height 175.26 cm No Primary Care Physician [facility] Work Phone: 07-11-2022 08:40-0400 Body mass index (BMI) [Ratio] 22.3 kg/m2 No Primary Care Physician [facility] Work Phone: 07-11-2022 08:40-0400 Body weight 68.49 kg No Primary Care Physician [facility] Work Phone: 07-11-2022 08:40-0400 Diastolic blood pressure 64 mm[Hg] No Primary Care Physician [facility] Work Phone: 07-11-2022 08:40-0400 Systolic blood pressure 100 mm[Hg] No Primary Care Physician [facility] Work Phone: 06-25-2022 23:30-0400 Body temperature 98.8 [degF] No Primary Care Physician [facility] Work Phone: 06-25-2022 23:30-0400 Diastolic blood pressure 62 mm[Hg] No Primary Care Physician [facility] Work Phone: 06-25-2022 23:30-0400 Heart rate 69 /min No Primary Care Physician [facility] Work Phone: 06-25-2022 23:30-0400 Respiratory rate 16 /min No Primary Care Physician [facility] Work Phone: 06-25-2022 23:30-0400 SaO2% (BldA) [Mass fraction] 100 % No Primary Care Physician [facility] Work Phone: 06-25-2022 23:30-0400 Systolic blood pressure 123 mm[Hg] No Primary Care Physician [facility] Work Phone: 06-25-2022 21:06-0400 Body temperature 98.5 [degF] [facility] Work Phone: 06-25-2022 21:06-0400 Diastolic blood pressure 99 mm[Hg] [facility] Work Phone: 06-25-2022 21:06-0400 Heart rate 94 /min [facility] Work Phone: 06-25-2022 21:06-0400 Respiratory rate 18 /min [facility] Work Phone: 06-25-2022 21:06-0400 SaO2% (BldA) [Mass fraction] 94 % [facility] Work Phone: 06-25-2022 21:06-0400 Systolic blood pressure 157 mm[Hg] [facility] Work Phone: 06-25-2022 20:55-0400 Body height 175.26 cm [facility] Work Phone: 06-25-2022 20:55-0400 Body mass index (BMI) [Ratio] 21.1 kg/m2 [facility] Work Phone: 06-25-2022 20:55-0400 Body weight 64.86 kg [facility] Work Phone: 01-15-2022 11:15-0400 Body height 172.72 cm No Primary Care Physician [facility] Work Phone: 01-15-2022 11:15-0400 Body mass index (BMI) [Ratio] 22.6 kg/m2 No Primary Care Physician [facility] Work Phone: 01-15-2022 11:15-0400 Body weight 67.58 kg No Primary Care Physician [facility] Work Phone: 01-15-2022 11:15-0400 Diastolic blood pressure 62 mm[Hg] No Primary Care Physician [facility] Work Phone: 01-15-2022 11:15-0400 Systolic blood pressure 100 mm[Hg] No Primary Care Physician [facility] Work Phone: Encounters Encounter Date Encounter Type Care Provider Facility Start: 08-10-2025 End: 08-10-2025 Patient encounter procedure Polina Gracia NP-C -[facility] Work Phone: Start: 08-10-2025 End: 08-10-2025 ambulatory No Primary Care Physician -[facility] Start: 08-10-2025 End: 08-10-2025 ambulatory Polina Gracia NP Facility:[facility] Start: 02-08-2025 End: 02-08-2025 Patient encounter procedure Polina Gracia NP-C -[facility] Work Phone: Start: 02-08-2025 End: 02-08-2025 ambulatory No Primary Care Physician [facility] Work Phone: Start: 02-08-2025 End: 02-08-2025 ambulatory No Primary Care Physician Facility:[facility] Start: 07-15-2024 End: 07-15-2024 ambulatory Facility:[facility] Start: 07-15-2024 End: 07-15-2024 Office outpatient visit 15 minutes Dieter Esqueda APRN.[employer] Work Phone: [facility] Comment on above: Sore throat (Primary Dx) Start: 03-23-2024 End: 03-23-2024 ambulatory ROYER ALVARENGA APRN-[employer] Facility:A Start: 03-15-2024 End: 03-15-2024 ambulatory Facility:[facility] Start: 03-15-2024 End: 03-15-2024 Patient encounter procedure Carolyn Lorenzo PASCUAL Work Phone: [facility] Comment on above: Strep throat (Primar y Dx); Sore throat Start: 09-08-2023 End: 09-08-2023 ambulatory No Primary Care Physician [facility] Work Phone: Start: 09-08-2023 End: 09-08-2023 Patient encounter procedure No Primary Care Physician [facility] Work Phone: Start: 05-21-2023 End: 05-21-2023 ambulatory No Primary Care Physician [facility] Work Phone: Start: 05-21-2023 End: 05-21-2023 Patient encounter procedure No Primary Care Physician [facility]-Laboratory, Specimen Work Phone: Start: 05-21-2023 End: 05-21-2023 Patient encounter procedure No Primary Care Physician [facility] Work Phone: Start: 04-30-2023 End: 04-30-2023 Admission to same day surgery center No Primary Care Physician [facility] Start: 04-30-2023 End: 04-30-2023 Emergency department patient visit No Primary Care Physician [facility]-Emergency Department Work Phone: Start: 04-03-2023 End: 04-03-2023 Emergency department patient visit No Primary Care Physician [facility]-Emergency Department Start: 04-01-2023 End: 04-01-2023 Emergency department patient visit No Primary Care Physician [facility]-Emergency Department Start: 03-31-2023 End: 03-31-2023 Patient encounter procedure Jimmy PONCE Work Phone: [facility] Comment on above: Sore throat (Primary Dx) Start: 01-15-2023 End: 01-15-2023 ambulatory No Primary Care Physician [facility] Work Phone: Start: 01-15-2023 End: 01-15-2023 Patient encounter procedure No Primary Care Physician [facility]-Laboratory, Specimen Start: 01-15-2023 End: 01-15-2023 Patient encounter procedure No Primary Care Physician [facility] Start: 07-11-2022 End: 07-11-2022 ambulatory No Primary Care Physician [facility] Work Phone: Start: 07-11-2022 End: 07-11-2022 Patient encounter procedure No Primary Care Physician [facility] Start: 07-09-2022 End: 07-09-2022 ambulatory No Primary Care Physician [facility] Work Phone: Start: 07-09-2022 End: 07-09-2022 Patient encounter procedure No Primary Care Physician [facility]-Ultrasound, [facility] Start: 07-03-2022 End: 07-03-2022 ambulatory No Primary Care Physician [facility] Work Phone: Start: 07-03-2022 End: 07-03-2022 Patient encounter procedure No Primary Care Physician [facility] Start: 07-01-2022 End: 07-01-2022 ambulatory No Primary Care Physician [facility] Work Phone: Start: 07-01-2022 End: 07-01-2022 Patient encounter procedure No Primary Care Physician [facility] Start: 06-25-2022 Non-patient / Non-visit No Deana lindsey Care Physician [facility] Start: 06-25-2022 End: 06-25-2022 Admission to same day surgery center No Primary Care Physician [facility] Start: 06-25-2022 End: 06-25-2022 Evaluation and management of inpatient [facility]-Medical Surgical 3 Start: 06-25-2022 End: 06-25-2022 observation encounter No Primary Care Physician [facility] Work Phone: Start: 06-25-2022 End: 06-25-2022 Patient encounter procedure Heena Barrera APRN.[employer] Work Phone: [facility] Comment on above: Lower abdominal pain (Primary Dx) Start: 01-18-2022 End: 01-18-2022 Patient encounter procedure No Primary Care Physician [facility]-Ultrasound, [facility] Start: 01-15-2022 End: 01-15-2022 Patient encounter procedure No Primary Care Physician [facility] Start: 01-15-2022 Patient encounter procedure No Primary Care Physician [facility]-Laboratory, Specimen Procedures Date Procedure Procedure Detail Performing Clinician Start: 07-15-2024 STREP A MOLECULAR (POC) Heena Barrera APRN.[employer] Work Phone: Start: 03-15-2024 STREP A MOLECULAR (POC) Carolyn Lorenzo APRN.[employer] Work Phone: Start: 09-08-2023 Investigation of tra nsfusion reaction No Primary Care Physician Start: 05-21-2023 Cytopathology proced ure, preparation of smear, genital source No Primary Care Physician Start: 05-21-2023 Investigation of tra nsfusion reaction No Primary Care Physician Start: 04-30-2023 Transvaginal obstetr ic ultrasonography No Primary Care Physician Start: 03-31-2023 STREP A MOLECULAR (POC) Angel Luis Mae MD Work Phone: Start: 07-09-2022 Pelvic echography No Pr imary Care Physician Start: 07-09-2022 Transvaginal echography No Primary Care Physician Start: 06-25-2022 Removal of ectopic fetus No Primary Care Physician Start: 06-25-2022 Transvaginal obstetr ic ultrasonography Start: 06-25-2022 CT of abdomen and pe lvis without contrast Start: 01-18-2022 Pelvic echography No Pr imary Care Physician Start: 01-18-2022 Transvaginal echography No Primary Care Physician Start: 01-15-2022 Cytopathology proced ure, preparation of smear, genital source No Primary Care Physician Start: 01-15-2022 Investigation of tra nsfusion reaction No Primary Care Physician H/O: surgery H/O oophorectomy No Primary Care Physician Comment on above: R Plan of Treatment Date Care Activity Detail Author Start: 08-10-2025 Hepatitis C virus RNA assay [facility] Start: 08-10-2025 Serologic test for syphilis [facility] Start: 08-10-2025 End: 08-10-2025 [facility] Start: 08-10-2025 Chlamydia deoxyribonucleic acid detection [facility] Start: 08-10-2025 Source specific culture [facility] Start: 02-08-2025 Liquid based cervical cytology screening [facility] Start: 07-04-2024 Covid-19 Vaccine ( season) Covid-19 Vaccine ( season) [facility] Start: 07-04-2024 Influenza vaccination [facility] Start: 11-03-2023 Behavioral Health Screening Behavioral Health Screening [facility] Start: 09-08-2023 Source specific culture [facility] Start: 09-08-2023 Cytopathology procedure, preparation of smear, genital source Genital Culture [facility] Start: 07-04-2023 Covid-19 Vaccine ( season) Covid-19 Vaccine ( season) [facility] Start: 07-04-2023 Influenza vaccination INFLUENZA (Season Ended) [facility] Start: 04-30-2023 Ambulation without limitation [facility] Start: 04-30-2023 Medical regimen orders management [facility] Start: 04-30-2023 Medication education [facility] Start: 04-30-2023 Patient discharge [facility] Start: 04-30-2023 Procedure discontinued [facility] Start: 04-30-2023 Taking patient vital signs [facility] Start: 04-30-2023 Vital signs measurements [facility] Start: 04-30-2023 [facility] Start: 04-30-2023 Dilation and curettage of uterus Dilation and Curettage, Suction (Not Applicable) [facility] Start: 04-30-2023 Admission procedure [facility] Start: 04-30-2023 Anesthesia incomplete/missed ANESTH INC/MISSED AB PROC [facility] Start: 04-30-2023 Tx missed first trimester surgical CARE OF MISCARRIAGE [facility] Start: 04-03-2023 [facility] Start: 11-03-2022 DEPRESSION ASSESSMENT DEPRESSION ASSESSMENT [facility] Start: 07-04-2022 Influenza vaccination INFLUENZA (#1) [facility] Start: 06-25-2022 Ambulation without limitation [facility] Work Phone: Start: 06-25-2022 Medical regimen orders management [facility] Work Phone: Start: 06-25-2022 Medication education [facility] Work Phone: Start: 06-25-2022 Patient discharge [facility] Work Phone: Start: 06-25-2022 Procedure discontinued [facility] Work Phone: Start: 06-25-2022 Taking patient vital signs [facility] Work Phone: Start: 06-25-2022 Vital signs measurements [facility] Work Phone: Start: 06-25-2022 [facility] Work Phone: Start: 06-25-2022 Admission procedure [facility] Work Phone: Start: 06-25-2022 Removal of ectopic fetus Laparoscopic, Removal Ectopic (Right) [facility] Work Phone: Start: 06-25-2022 Anesthesia intraperitoneal lower abd w/laps nos ANESTH SURG LOWER ABDOMEN [facility] Work Phone: Start: 06-25-2022 Laps tx ectopic preg w/salping&/oophorectomy TREAT ECTOPIC [facility] Work Phone: Start: 2017 PAP TESTING PAP TESTING [facility] Start: 2017 Screening for malignant neoplasm of cervix [facility] Start: 2015 Hepatitis B Vaccine (1 of 3 - 19+ 3-dose series) Hepatitis B Vaccine (1 of 3 - 19+ 3-dose series) [facility] Start: 2015 Urine microalbumin profile [facility] Start: 2014 Anxiety Screening Anxiety Screening [facility] Start: 2014 Depression Screening Depression Screening [facility] Start: 2010 PEDS TO ADULT TRANSITION ANNUAL ASSESSMENT PEDS TO ADULT TRANSITION ANNUAL ASSESSMENT [facility] Start: 2008 Adult depression screening assessment DEPRESSION SCREENING [facility] Start: 2008 PEDS TO ADULT TRANSITION INITIAL DISCUSSION PEDS TO ADULT TRANSITION INITIAL DISCUSSION [facility] Start: 2007 HPV VACCINE (1 - 2-dose series) HPV VACCINE (1 - 2-dose series) [facility] Start: 2005 HPV VACCINE (1 - 2-dose series) HPV VACCINE (1 - 2-dose series) [facility] Start: 1996 COVID-19 VACCINE (#1) COVID-19 VACCINE (#1) [facility] Start: 1996 HEPATITIS B (1 of 3 - 3-dose series) HEPATITIS B (1 of 3 - 3-dose series) [facility] Measurement of Human herpesvirus 2 antibody [facility] Path report.final Dx Spec [facility] Patient Education [facility] Work Phone: [facility] Work Phone: PCR for Hepatitis C [facility] Serologic test for h erpes simplex [facility] Payers Date Payer Category Payer Unknown [id number] 2025 Self-pay 2022 Unknown [id number] 2020 Medicaid [id number] 1996 Unknown [id number] Private Health Insurance [facility] [id number] Self-pay [id number] Unknown [id number] Unknown [id number] Unknown [id number] Unknown [id number] Social History Date Type Detail Facility Start: 01-15-2022 End: 09-08-2023 Tobacco smoking status NHIS Unknown if ever smoked [facility] Start: 1995 Sex Assigned At Female [facility] Start: 05-12-2014 End: 09-08-2023 Tobacco smoking status NHIS Never smoked tobacco [facility] Start: 05-12-2014 Tobacco use and exposure Smokeless tobacco non-user [facility] Start: 06-20-2022 End: 07-15-2024 Alcohol intake Current drinker of alcohol (finding) [facility] Start: 05-12-2014 History SDOH Alcohol Comment rare [facility] Start: 1995 Sex Assigned At Not on file [facility] Start: 06-15-2022 End: 06-25-2022 Exposure to SARS-CoV-2 (event) Not sure [facility] Start: 10-11-2020 End: 03-15-2024 History of Social function [facility] Start: 10-11-2020 End: 03-15-2024 Tobacco use panel [facility] National Score (1-100), lower number is lower risk Not on file [facility] Start: 02-11-2025 Sex Female (finding) [facility] NEGATED: Highlighted row [facility] Goals Date Patient Goal Desired Activity /State Mental Status Date Assessment Result Facility 04-30-2023 Cognitive function Drowsy [facility] Work Phone: 06-25-2022 Cognitive function Voice/Name [facility] Work Phone: Clinical Notes 06-25-2022 to 08-10-2025 Note Date & Type Note Facility 08-10-2025 Progress note [facility] 08-10-2025 Progress note Note Date/Time August 10, 2025 3:20pm [facility] [address], [address] [place] [address] OFFICE VISIT Date of Service: 08/10/25 MR#: [id number] Acct: [id number] Name: CATERINA WATSON Rep #: [id number] : 1995 Provider: WILLIAM Gracia Age/Sex: 30/F [place] [facility] [place]: Signed Intake Vital Signs 02/08/25 10:32 08/10/25 15:05 08/10/25 15:10 Height 5 ft 8 in 5 ft 8 in 5 ft 8 in Weight: 174 lb 2 oz BMI 26.4 BP 130/84 H Intake Visit Reasons: Vaginal discharge/odor Refuge Manager Required: No Is patient in pain?: No Allergies No Known Allergies Allergy (Verified 08/10/25 15:05) Medications ?Medication ?Instructions ?Recorded ?Confirmed ?Type NK 02/08/25 08/10/25 History Is last menstrual period known: Yes Last Menstrual Period: 07/30/25 Post menopausal: No Patient : No : No [facility] Medical History Status post elective Retained products of conception Abnormal vaginal bleeding Retained products of conception with hemorrhage History of ectopic Ectopic Alopecia Surgical History Status post dilatation and curettage H/O unilateral salpingectomy H/O oophorectomy No significant past medical history Social History Smoking Status: Never smoker second hand exposure: Yes alcohol intake: current details: social substance use type: does not use caffeine: No what type of physical activity do you participate in: none seatbelt use: always do you feel safe at home: Yes additional social history: [facility]- Home health care HPI Vaginal discharge/odor Details: CATERINA WATSON is a 30 year old who presents for increased vaginal discharge withodor. Denies itching or irritation. New sexual partner. Condoms for contraception. Declines other contraception. Female Reproductive History Last Menstrual Period: 07/30/25 History 3 Elective abortions 1 Hx Para 1 Spontaneous abortions Hx # Term Pregnancies Ectopic pregnancies 1 Hx # Pregnancies Multiple births # of living children 1 Past Pregnancies Del. Date Name GA/Weeks Outcome Route Bth Weight Gen [facility] F[facility] 12/24/19 Flavia 39 live - full term Female epid ural [facility] Delivery Date: 12/24/19 Last Updated by: Luh Simons IOL [place] ROS Const Constitutional: Reports system reviewed and no additional complaints, except as documented Eyes Eyes: Reports system reviewed and no additional complaints, except as documented GI GI: Denies abdominal pain or change in bowel habits : Reports as per HPI Exam Const General: cooperative and no acute distress Orientation: oriented x3 General: bladder normal to palpation External Female Exam: normal external appearance and normal appearance of the urethra Urethra: normal appearance of the urethra Speculum Exam - Vagina: normal appearance of the vagina, normal vaginal discharge, no lesions and nontender Speculum Exam - Cervix: normal appearance of the cervix Bimanual Exam- Vagina & Uterus: normal bimanual exam, uterine size normal, bladder normal to palpation, uterine shape normal, uterine mobility normal and non-tender Bimanual Exam- Adnexa, other: normal adnexae, no masses and non-tender Coding Level of Care Code Off vis,est,level 3 Diagnoses Vaginal discharge N89.8 Possible exposure to sexually transmitted infection Z20.2 Assessment and Plan Assessment and Plan (1) Vaginal discharge: Status: Acute (2) Possible exposure to sexually transmitted infection: Orders: Orders HSV 1&2 IgG Today Z20.2 - Contact with and (suspected) exposure to infections with a predominantly sexual mode of transmission HIV Today Z20.2 - Contact with and (suspected) exposure to infections with a predominantly sexual mode of transmission Syphilis Antibodies Today Z20.2 - Contact with and (suspected) exposure to infections with a predominantly sexual mode of transmission Hepatitis C,RNA PCR Viral Load Today Z20.2 - Contact with and (suspected) exposure to infections with a predominantly sexual mode of transmission Culture, Genital Comprehensive Today N89.8 - Other specified noninflammatory disorders of vagina POC BV Blue Test Today N89.8 - Other specified noninflammatory disorders of vagina Chlamydia/GC ALFONSO aptima Today Z11.3 - Encounter for screening for infections with a predominantly sexual mode of transmission Plan MARTIN BV and trich, GCC and comp vaginal culture plus serum STD labs-call positives RTO prn, annual exam 08/10/25 1520 <Electronically signed by Polina Uriaswyatt s CARDIAC CATHETERIZATION TECHNICIAN CARDIAC CATHETERIZATION TECHNICIAN-C> Date _ Polina Gracia CARDIAC CATHETERIZATION TECHNICIAN CARDIAC CATHETERIZATION TECHNICIAN-C Cosigner Signature: Date (if applicable) CC: ~ [facility] Work Phone: 1(140) 471-460604-08-2025 Evaluation note* Diagnosis Onset Date Resolution Status Admit Date Possible exposure to STD noneactive February 08, 2025 10:25am Pap smear for cervical cancer screening noneactive February 08, 2025 10:25am [facility] Work Phone: 1(772) 769-818309-12-2024 NoteHNO ID: [id number] Author: DIETER ESQUEDA APRN.[employer] Service: ? Author Type: Nurse Practitioner Type: Progress Notes Filed: 07/15/2024 17:11 Note Text: Subjective HPI Nontoxic-appearing female presents urgent care chief complaint pharyngitis. Duration of symptom 1 week. Associated symptoms sore throat swollen tonsils. History of strep throat this feels similar. No OTC medication use. No difficulty swallowing his secretions decreased range of motion of neck. Denies any fever body aches chills productive cough chest pain shortness of breath pleuritic pain hemoptysis nausea vomiting abdominal pain change in bowel or bladder habits. Past medical history prescription medication use and allergies reviewed. .Patient presents with: Sore Throat: R side worse and swollen tonsil x 1 week History reviewed. No pertinent past medical history. History reviewed. No pertinent surgical history. ALLERGIES Seasonal Allergies MEDICATIONS No prescriptions on file. FAMILY HISTORY Problem Relation Age of Onset None Mother None Father Social History Tobacco Use Smoking status: Never Smokeless tobacco: Never Substance Use Topics Alcohol use: Yes Comment: rare Drug use: No BP 118/81 Pulse 64 Temp 36.8 ?C (98.3 ?F) Resp 18 Wt 86 kg (189 lb 9.5 oz) LMP 06/11/2024 (Exact Date) SpO2 99% BMI 29.26 kg/m? Review of Systems Constitutional: Negative for chills, fever and malaise/fatigue. HENT: Positive for sore throat. Negative for congestion, ear discharge, ear pain and sinus pain. Eyes: Negative for blurred vision, pain, discharge and redness. Respiratory: Negative for cough, hemoptysis, sputum production, shortness of breath, wheezing and stridor. Cardiovascular: Negative for chest pain. Gastrointestinal: Negative for abdominal pain, diarrhea, nausea and vomiting. Musculoskeletal: Negative for myalgias. Skin: Negative for itching and rash. Neurological: Negative for dizziness and headaches. Objective Physical Exam Constitutional: General: She is not in acute distress. Appearance: She is not diaphoretic. HENT: Head: Normocephalic. Jaw: No trismus, tenderness, swelling or pain on movement. Mouth/Throat: Mouth: Mucous membranes are moist. Pharynx: Oropharynx is clear. Uvula midline. Posterior oropharyngeal erythema present. No pharyngeal swelling, oropharyngeal exudate or uvula swelling. Tonsils: No tonsillar exudate or tonsillar abscesses. 0 on the right. 0 on the left. Eyes: Conjunctiva/sclera: Conjunctivae normal. Pupils: Pupils are equal, round, and reactive to light. Cardiovascular: Rate and Rhythm: Normal rate and regular rhythm. Heart sounds: Normal heart sounds. Pulmonary: Effort: Pulmonary effort is normal. No tachypnea, accessory muscle usage or respiratory distress. Breath sounds: Normal breath sounds. No stridor. No wheezing, rhonchi or rales. Abdominal: General: There is no distension. Palpations: Abdomen is soft. Tenderness: There is no abdominal tenderness. There is no guarding or rebound. Musculoskeletal: Cervical back: Normal range of motion and neck supple. No edema, erythema, rigidity or tenderness. No pain with movement. Normal range of motion. Lymphadenopathy: Cervical: No cervical adenopathy. Skin: General: Skin is warm and dry. Neurological: Mental Status: She is alert and oriented to person, place, and time. ASSESSMENT/PLAN: 1. Sore throat - ICD9: 462, ICD10: J02.9 - STREP A MOLECULAR (POC) Strep test negative. Diagnosed with viral pharyngitis. No evidence of bacterial faction noted on today's exam. Patient was educated on supportive therapies. Patient will follow up with primary care provider as needed. Patient was instructed to immediately proceed to emergency room for any new, worsening, or symptoms lasting longer than anticipated. The patient's clinical presentation is otherwise unremarkable at this time. Based on exam and clinical finding, the patient is stable for discharge. Plan of care was discussed with patient. Patient verbalizes understanding and agrees to plan of care. This note was generated using [employer] software. It may contain errors in wording, punctuation, or spelling. Dieter Esqueda APRN.[facility]09-12-2024 History of Present illness Narrative* iDeter Esqueda APRN.[employer] - 07/15/2024 5:05 PM EDT Subjective HPI Nontoxic-appearing female presents urgent care chief complaint pharyngitis. Duration of symptom 1 week. Associated symptoms sore throat swollen tonsils. History of strep throat this feels similar. NoOTC medication use. No difficulty swallowing his secretions decreased range of motion of neck. Denies any fever body aches chills productive cough chest pain shortness of breath pleuritic pain hemoptysis nausea vomiting abdominal pain change in bowel or bladder habits. Past medical history prescription medication use and allergies reviewed. .Patient presents with: Sore Throat: R side worse and swollen tonsil x 1 week History reviewed. No pertinent past medical history. History reviewed. No pertinent surgical history. ALLERGIES Seasonal Allergies MEDICATIONS No prescriptions on file. FAMILY HISTORY Problem Relation Age of Onset None Mother None Father Social History Tobacco Use Smoking status: Never Smokeless tobacco: Never Substance Use Topics Alcohol use: Yes Comment: rare Drug use: No BP 118/81 Pulse 64 Temp 36.8 C (98.3 F) Resp 18 Wt 86 kg (189 lb 9.5 oz) LMP 06/11/2024 (Exact Date) SpO2 99% BMI 29.26 kg/m Review of Systems Constitutional: Negative for chills, fever and malaise/fatigue. HENT: Positive for sore throat. Negative for congestion, ear discharge, ear pain and sinus pain. Eyes: Negative for blurred vision, pain, discharge and redness. Respiratory: Negative for cough, hemoptysis, sputum production, shortness of breath, wheezing and stridor. Cardiovascular: Negative for chest pain. Gastrointestinal: Negative for abdominal pain, diarrhea, nausea and vomiting. Musculoskeletal: Negative for myalgias. Skin: Negative for itching and rash. Neurological: Negative for dizziness and headaches. Objective Physical Exam Constitutional: General: She is not in acute distress. Appearance: She is not diaphoretic. HENT: Head: Normocephalic. Jaw: No trismus, tenderness, swelling or pain on movement. Mouth/Throat: Mouth: Mucous membranes are moist. Pharynx: Oropharynx is clear. Uvula midline. Posterior oropharyngeal erythema present. No pharyngeal swelling, oropharyngeal exudate or uvula swelling. Tonsils: No tonsillar exudate or tonsillar abscesses. 0 on the right. 0 on the left. Eyes: Conjunctiva/sclera: Conjunctivae normal. Pupils: Pupils are equal, round, and reactive to light. Cardiovascular: Rate and Rhythm: Normal rate and regular rhythm. Heart sounds: Normal heart sounds. Pulmonary: Effort: Pulmonary effort is normal. No tachypnea, accessory muscle usage or respiratory distress. Breath sounds: Normal breath sounds. No stridor. No wheezing, rhonchi or rales. Abdominal: General: There is no distension. Palpations: Abdomen is soft. Tenderness: There is no abdominal tenderness. There is no guarding or rebound. Musculoskeletal: Cervical back: Normal range of motion and neck supple. No edema, erythema, rigidity or tenderness. No pain with movement. Normal range of motion. Lymphadenopathy: Cervical: No cervical adenopathy. Skin: General: Skin is warm and dry. Neurological: Mental Status: She is alert and oriented to person, place, and time. ASSESSMENT/PLAN: 1. Sore throat - ICD9: 462, ICD10: J02.9 - STREP A MOLECULAR (POC) Strep test negative. Diagnosed with viral pharyngitis. No evidence of bacterial faction noted on today's exam. Patient was educated on supportive therapies. Patient will follow up with primary care provider as needed. Patient was instructed to immediately proceed to emergency room for any new, worsening, or symptoms lasting longer than anticipated. The patient's clinical presentation is otherwise unremarkable at this time. Based on exam and clinical finding, the patient is stable for discharge. Plan of care was discussed with patient. Patient verbalizes understanding and agrees to plan of care. This note was generated using [employer] software. It may contain errors in wording, punctuation, or spelling. Dieter Esqueda APRN.CARPET SEWER documented in this encounterSum[facility] NoteHNO ID: [id number] Author: CAROLYN LORENZO APRN.SHANI Service: ? Author Type: Nurse Practitioner Type: Progress Notes Filed: 03/15/2024 13:38 Note Text: Subjective HPI HPI Caterina Watson is a 28 year old female who presents today for CC of st, congestion. This started 2 days ago. Has tried 2 days ago. Symptoms are worsened by otc medication for relief. Risk factors nothing, sick exposures at home. Nonsmoker. Denies possibility of being . .Patient presents with: Sore Throat: Congestion and pressure x2 days No past medical history on file. No past surgical history on file. ALLERGIES Seasonal Allergies MEDICATIONS amoxicillin (AMOXIL) 500 mg capsule Take 1 capsule by mouth two times a day for 10 days. FAMILY HISTORY Problem Relation Age of Onset None Mother None Father Social History Tobacco Use Smoking status: Never Smokeless tobacco: Never Substance Use Topics Alcohol use: Yes Comment: rare Drug use: No Review of Systems Constitutional: Negative for fever. HENT: Positive for congestion and sore throat. Negative for ear pain and nosebleeds. Respiratory: Negative for cough, shortness of breath and wheezing. Musculoskeletal: Negative for neck pain. Skin: Negative for itching and rash. Objective Blood pressure 122/72, pulse 69, temperature 37.1 ?C (98.7 ?F), resp. rate 16, weight 82.7 kg (182 lb 5.1 oz), last menstrual period 03/14/2024, SpO2 98%. Physical Exam Constitutional: General: She is not in acute distress. Appearance: She is not toxic-appearing or diaphoretic. HENT: Head: Normocephalic and atraumatic. Right Ear: Hearing, tympanic membrane, ear canal and external ear normal. Left Ear: Hearing, tympanic membrane, ear canal and external ear normal. Nose: Nose normal. Mouth/Throat: Pharynx: Uvula midline. Posterior oropharyngeal erythema present. No pharyngeal swelling, oropharyngeal exudate or uvula swelling. Eyes: General: Lids are normal. No scleral icterus. Right eye: No discharge. Left eye: No discharge. Conjunctiva/sclera: Conjunctivae normal. Pupils: Pupils are equal, round, and reactive to light. Neck: Trachea: Trachea normal. Cardiovascular: Rate and Rhythm: Normal rate and regular rhythm. Heart sounds: Normal heart sounds. Pulmonary: Effort: Pulmonary effort is normal. Breath sounds: Normal breath sounds. Musculoskeletal: Cervical back: Normal range of motion and neck supple. Lymphadenopathy: Cervical: No cervical adenopathy. Right cervical: No superficial cervical adenopathy. Left cervical: No superficial cervical adenopathy. Skin: Findings: No rash. Neurological: Mental Status: She is alert and oriented to person, place, and time. ASSESSMENT/PLAN: 1. Strep throat - ICD9: 034.0, ICD10: J02.0 (primary diagnosis) - suspect strep - Group A strep molecular testing positive - antibiotic as written - Discussed supportive care treatment with fluids, rest and analgesia. - The patient should follow up in 3-5 days if symptoms persist or worsen - Call back if drooling, increased temperature, symptoms of dehydration and/or still sick in one week - AMOXICILLIN 500 MG CAPSULE 2. Sore throat - ICD9: 462, ICD10: J02.9 Pos, strep - STREP A MOLECULAR (POC) Carolyn Lorenzo APRN.[facility]05-13-2024 History of Present illness Narrative* Carolyn Lorenzo APRN.[facility] - 03/15/2024 1:34 PM EDT Subjective HPI HPI Caterina Watson is a 28 year old female who presents today for CC of st, congestion. This started 2 days ago. Has tried 2 days ago. Symptoms are worsened by otc medication for relief. Risk factors nothing, sick exposures at home. Nonsmoker. Denies possibility of being . .Patient presents with: Sore Throat: Congestion and pressure x2 days No past medical history on file. No past surgical history on file. ALLERGIES Seasonal Allergies MEDICATIONS amoxicillin (AMOXIL) 500 mg capsule Take 1 capsule by mouth two times a day for 10 days. FAMILY HISTORY Problem Relation Age of Onset None Mother None Father Social History Tobacco Use Smoking status: Never Smokeless tobacco: Never Substance Use Topics Alcohol use: Yes Comment: rare Drug use: No Review of Systems Constitutional: Negative for fever. HENT: Positive for congestion and sore throat. Negative for ear pain and nosebleeds. Respiratory: Negative for cough, shortness of breath and wheezing. Musculoskeletal: Negative for neck pain. Skin: Negative for itching and rash. Objective Blood pressure 122/72, pulse 69, temperature 37.1 C (98.7 F), resp. rate 16, weight 82.7 kg (182 lb5.1 oz), last menstrual period 03/14/2024, SpO2 98%. Physical Exam Constitutional: General: She is not in acute distress. Appearance: She is not toxic-appearing or diaphoretic. HENT: Head: Normocephalic and atraumatic. Right Ear: Hearing, tympanic membrane, ear canal and external ear normal. Left Ear: Hearing, tympanic membrane, ear canal and external ear normal. Nose: Nose normal. Mouth/Throat: Pharynx: Uvula midline. Posterior oropharyngeal erythema present. No pharyngeal swelling, oropharyngeal exudate or uvula swelling. Eyes: General: Lids are normal. No scleral icterus. Right eye: No discharge. Left eye: No discharge. Conjunctiva/sclera: Conjunctivae normal. Pupils: Pupils are equal, round, and reactive to light. Neck: Trachea: Trachea normal. Cardiovascular: Rate and Rhythm: Normal rate and regular rhythm. Heart sounds: Normal heart sounds. Pulmonary: Effort: Pulmonary effort is normal. Breath sounds: Normal breath sounds. Musculoskeletal: Cervical back: Normal range of motion and neck supple. Lymphadenopathy: Cervical: No cervical adenopathy. Right cervical: No superficial cervical adenopathy. Left cervical: No superficial cervical adenopathy. Skin: Findings: No rash. Neurological: Mental Status: She is alert and oriented to person, place, and time. ASSESSMENT/PLAN: 1. Strep throat - ICD9: 034.0, ICD10: J02.0 (primary diagnosis) - suspect strep - Group A strep molecular testing positive - antibiotic as written - Discussed supportive care treatment with fluids, rest and analgesia. - The patient should follow up in 3-5 days if symptoms persist or worsen - Call back if drooling, increased temperature, symptoms of dehydration and/or still sick in one week - AMOXICILLIN 500 MG CAPSULE 2. Sore throat - ICD9: 462, ICD10: J02.9 Pos, strep - STREP A MOLECULAR (POC) Carolyn Lorenzo APRN.SHANI documented in this encounterSumma Health [facility]06-28-2023 Discharge summary Author Alexx Melvin [facility] April 30, 2023 3:14pm Note Date/Time April 30, 2023 11:1 7am [facility] Medical Records Department [address] [place] [address] Emergency Department Summary 04/30/23 MR#: [id number] Acct: [id number] Name: CATERINA WATSON Rep #:[id number] : 1995 27 From: Alexx Bullard PCP: Care Physician,No Primary Status :REG ER Location: ED HPI HPI - Female History of Present Illness Chief Complaint: Vag Bleeding Narrative Narrative: G4, P1 presents increasing vaginal bleeding starting 3 days ago today increasingclots while she is on commode. No lightheaded symptoms. No anticoagulations. Reports 4 weeks post medical . Initial bleeding that resolved. She is having cramping today in the pelvis. 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 States medications obtained from [facility]. She is followed by Polina Gracia. Prior similar symptoms: No PFSH PFSH Medical History (Updated 04/30/23 @ 15:[address] Alexx Melvin DO) Alopecia Home Medications dextromethorphan-benzocaine 5 mg-7.5 mg lozenges (Cepacol Sore Throat-Cough) 1 blaise PO Q4H PRN sore throat #16 ea 04/01/23 [Rx Last Taken Unknown] ondansetron 4 mg disintegrating tablet 4 mg PO Q8H PRN PRN Nausea #14 tabs 04/01/23 [Rx Last Taken Unknown] Allergy/AdvReac Type Severity Reaction Status Date / Time No Known Allergies Allergy Verified 04/03/23 16:29 Surgical History No significant past medical history Social History Smoking Status: Never smoker second hand exposure: Yes alcohol intake: current details: social substance use type: does not use caffeine: No what type of physical activity do you participate in: none seatbelt use: always do you feel safe at home: Yes additional social history: [facility] ROS ROS ED Constitutional Constitutional ED: Denies chills, fever(s) or sweats Eyes Eyes: Denies change in vision ENT ENT ED: Denies dysphagia or sore throat Cardiovascular Cardiovascular: Denies chest pain, leg edema, palpitations or racing heartbeat Respiratory/Chest Respiratory/Chest: Denies cough, dyspnea or dyspnea on exertion Gastrointestinal Gastrointestinal: Denies abdominal pain, diarrhea, nausea or vomiting Genitourinary Genitourinary ED: Reports other Details: Vaginal bleeding with pelvic cramping ; Denies dysuria, hematuria or urinary frequency Musculoskeletal Musculoskeletal: Denies back pain, extremity pain or neck pain Integumentary Denies rash or wounds Neurologic Neurologic: Denies headache(s), paresthesias or weakness EXAM Physical Exam Const Vital Signs: 04/30/23 10:51 04/30/23 13:29 04/30/23 15:00 Temperature 96.2 F L Temperature Source Temporal Pulse Rate 146 H 80 120 H Respiratory Rate 18 16 18 Blood Pressure 99/35 L 94/77 102/68 Blood Pressure Mean 56 82 79 Pulse Ox 97 97 100 Oxygen Delivery Method Room Air Room Air Room Air Positive well nourished and well developed Constitutional Narrative: Nontoxic General Appearance ED: well developed and NAD HEENT Reports moist mucous membranes HEENT Narrative: No pallor of the conjunctiva ever normocephalic and atraumatic Eyes PERRL, EOMs intact bilaterally and conjunctivae normal General Eye ED: Yes normal appearance of both eyes Neck no lymphadenopathy and supple General: Negative for tenderness Chest Wall Chest: Negative for tenderness Resp normal respiratory effort and normal air movement Effort and Inspection: symmetric chest movement; Negative for respiratory distress Cardio regular rhythm and no murmurs Rate: tachycardic Peripheral Pulses: pulses 2+ throughout GI normal to inspection, nondistended, normoactive bowel sounds and non-tender Palpation: Negative for guarding or rebound tenderness present Narrative: Minimal pelvic tenderness, declines a pelvic exam at this time. Back/Spine no CVA tenderness and no thoracic nor lumbar tenderness Extremity normal to inspection General Extremety ED: Negative for edema or tenderness General Extremity: Negative for edema Neuro oriented x3 and no sensory deficits noted Sensorium / Orientation: awake and alert Skin no rashes or lesions noted and no wounds MDM MDM MDM Narrative Medical decision making narrative: Interventions / MDM: Differential diagnosis: Dysfunctional uterine bleeding, retained products of conception Diagnosis considered but do not suspect: N/A My EKG interpretation: N/A Imaging independently reviewed and interpreted by myself: Transvaginal ultrasound heterogenous uterus thickened endometrium 25 mm concerning for retained products of conception read by radiology External documents reviewed: N/A Test considered but not ordered:N/A ED course: Patient presented was tachycardic 146 blood pressure 99. Clinically was stable. She is given fluids, laboratory studies check type and screen sent. hCG quant returned at 1732. Cramping was given Tylenol. Ultrasound obtained noting concerns for retained products of conception. 1510 heart rate improving with fluids: Clinically stable blood pressure stable currently. She kept n.p.o. fluids continued. She did not eat today. I discussed with covering filter tank tender Dr. Cartagena, we will keep her n.p.o. shewill see in the emergency department for likely OR for D&C. Re-evaluation: stable Disposition discussed with patient/family/significant other: Patient Case discussed with consulting clinician: Gynecology, Dr. Cartagena This note was generated with [employer] dictation software. It may contain incorrectwords, spelling, and punctuation that were not noted in checking the note beforesigning. Lab Data Attestation: I reviewed the patient's lab results. Labs: Laboratory Results - last 24 hr 04/30/23 04/30/23 11:07 11:28 WBC 13.4 H RBC 4.16 L Hgb 12.1 Hct 36.4 L MCV 87.5 MCH 29.1 MCHC 33.2 RDW Std Deviation 45.3 H RDW Coeff of Ann Marie 14.4 Plt Count 309 MPV 10.8 Immature Gran % (Auto) 0.400 Neut % (Auto) 69.5 Lymph % (Auto) 20.5 Jewell % (Auto) 7.8 Eos % (Auto) 1.4 Baso % (Auto) 0.4 Absolute Neuts (auto) 9.3 H Absolute Lymphs (auto) 2.75 Nucleated RBC % 0 HCG, Quant 1732 H Blood Type O POSITIVE Antibody Screen NEGATIVE Radiography Diagnostic Testing: Clinical Impression(s) from Imaging Studies Obstetrics Ultrasound 04/30/23 11:13 IMPRESSION: Heterogeneous thickening of the endometrium measuring 25.1 mm. Retained products of conception should be ruled out. Electronically Signed: Curtis Valero MD at 14:38 EDT , Discharge Plan Dx/Rx/DC Orders Clinical Impression: Retained products of conception with hemorrhage, Abnormal vaginal bleeding Disposition Disposition: Acute Care Hospital [facility] What to do if you have Problems For any increased pain, shortness of breath, bleeding, nausea or vomiting, chestpain, or any unexpected problems, contact your Primary Care Provider. Call [facility] ([phone]) or report to the closest Emergency Room. Call 911 if necessary. 04/30/23 1514 <Electronically signed by Alexx Bullard> Cosigner Signature (if applicable): CC: No Primary Care Physician ~ Signed [facility] Work Phone: 1(967) 686-463205-30-[address] Barragan [facility] April 01, 2023 3:44pm Note Date/Time April 01, 2023 3:44p m [facility] Medical Records Department [address] [place] [address] Emergency Department Summary 04/01/23 MR#: [id number] Acct: [id number] Name: CATERINA WATSON Rep #:[id number] : 1995 27 From: Ron Barragan DO PCP: Care Physician,No Primary Status :PRE ER Location: ED HPI HPI - URI History of Present Illness Chief Complaint: Sore Throat Narrative Narrative: Female with sore throat for the last few days. She denies fever or chills. No cough or shortness of breath. She states she was seen at the urgent care yesterday and had a strep swab which was negative. She states that they did notgive her anything to help with her sore throat. She does state that when she takes Tylenol her throat does get a little bit better but then comes back. She has not tried ibuprofen. Patient does report she is also been a little fatigued. She is not eating as much she normally does. She does not report anynausea or vomiting however. No urinary or vaginal complaints although the patient did states she had an a week ago. ROS ROS ED Constitutional Constitutional ED: Denies chills or fever(s) Eyes Eyes: Denies change in vision or diplopia ENT ENT ED: Reports sore throat; Denies rhinorrhea Cardiovascular Cardiovascular: Denies chest pain or palpitations Respiratory/Chest Respiratory/Chest: Reports cough and dyspnea Gastrointestinal Gastrointestinal: Denies abdominal pain or constipation Genitourinary Genitourinary ED: Denies dysuria or hematuria Musculoskeletal Musculoskeletal: Denies arthralgias or back pain Integumentary Denies abscess Neurologic Neurologic: Denies headache(s) PFSH PFSH Medical History Alopecia Home Medications dextromethorphan-benzocaine 5 mg-7.5 mg lozenges (Cepacol Sore Throat-Cough) 1 blaise PO Q4H PRN sore throat #16 ea 04/01/23 [Rx Last Taken Unknown] ondansetron 4 mg disintegrating tablet 4 mg PO Q8H PRN PRN Nausea #14 tabs 04/01/23 [Rx Last Taken Unknown] Allergy/AdvReac Type Severity Reaction Status Date / Time No Known Allergies Allergy Verified 04/01/23 15:24 Surgical History No significant past medical history Social History Smoking Status: Never smoker second hand exposure: Yes alcohol intake: current details: social substance use type: does not use caffeine: No what type of physical activity do you participate in: none seatbelt use: always do you feel safe at home: Yes additional social history: [facility] EXAM Physical Exam Const Vital Signs: 04/01/23 15:22 Temperature 97.5 F L Temperature Source Temporal Pulse Rate 112 H Respiratory Rate 18 Blood Pressure 127/87 H Blood Pressure Mean 100 Pulse Ox 98 Oxygen Delivery Method Room Air Positive well nourished General Appearance ED: Negative for pallor HEENT Reports moist mucous membranes Throat: posterior oropharynx abnormal Positive for edema and erythema; Negative for exudates Eyes PERRL Neck no lymphadenopathy and supple Resp normal respiratory effort Effort and Inspection: Negative for retractions Cardio Rate: regular rate Rhythm: regular rhythm Extremity normal to inspection and full ROM Neuro oriented x3 and CN's II-XII intact bilaterally Sensorium / Orientation: alert Motor Exam: strength 5/5 throughout Psych mental status grossly normal Skin General Skin Exam: Negative for jaundice or pallor MDM MDM MDM Narrative Medical decision making narrative: 27-year-old female with sore throat. Throat is a little bit of erythema but no exudates. She had already passed. Otherwise HEENT exam is unremarkable. Vitalsigns are stable and she is afebrile. I did offer to test her for COVID or influenza and she declines realizing that it would not change treatment. Patient given 10 mg Decadron p.o. She is also given ibuprofen and a Cepacol lozenge. She was given Cepacol lozenges for home as well as Zofran because she feels this might help her decreased p.o. intake. Return precautions were discussed. Patient discharged home in stable condition. Impression: 1. Viral pharyngitis Discharge Plan Triage Chief Complaint: Sore Throat ED Provider: Ron Barragan Dx/Rx/DC Orders Instructions: ED Pharyngitis, Viral Prescriptions: New ondansetron 4 mg tablet,disintegrating 4 mg PO Q8H PRN PRN (Reason: Nausea) Qty: 14 0RF Cepacol Sore Throat-Cough 5-7.5 mg lozenge 1 blaise PO Q4H PRN (Reason: sore throat) Qty: 16 0RF Stand Alone Forms: Work Status Form Primary Care Provider: Care Physician,No Primary Referrals: [facility] [Outside] - 3-5 Days Care Physician,No Primary [Primary Care Provider] - Disposition Disposition: Home, Self Care What to do if you have Problems For any increased pain, shortness of breath, bleeding, nausea or vomiting, chestpain, or any unexpected problems, contact your Primary Care Provider. Call [facility] ([phone]) or report to the closest Emergency Room. Call 911 if necessary. 04/01/23 5844 <Electronically signed by Ron Barragan DO> Cosigner Signature (if applicable): CC: No Primary Care Physician ~ Signed [facility] Work Phone: 1(387) 112-770405-29-2023 Instructions* Patient Instructions* ROSARIO Mcmahon - 03/31/2023 11:52 AM EDT PHARYNGITIS PATIENT INSTRUCTIONS DESCRIPTION: Inflammation and infection of the pharynx that can be caused by a variety of germs. SIGNS AND SYMPTOMS: -Sore throat. -Swallowing difficulty. -Tickle or "lump" in the throat. -Fever. -Swollen glands in the neck (sometimes). -Throat may be red or covered with a grayish membrane (sometimes). -Generalized aching. CAUSES: Infection from bacteria, viruses or fungi. PREVENTIVE MEASURES: -Avoid close contact with anyone with a sore throat. -Keep immunizations, including diphtheria, up to date. TREATMENT: -Laboratory throat culture and blood count may be done to determine type of infection. -Home care is usually sufficient. -Use gargles to relieve throat pain. Prepare double strength tea, hot or cold, or a salt-water solution (1 teaspoon salt in 8 oz. warm water). Use to gargle as often as you wish. -Use a cool-mist ultrasonic humidifier to increase air moisture. This will relieve the dry, tight feeling in the throat. Clean humidifier daily. -If the glands are large and tender, apply moist, warm soaks at least 4 times a day for 30 to 60 minutes. The compresses will be more effective if they are kept warm. Be careful not to burn the skin. -Replace your toothbrush. It may be harboring germs. -Until infection is gone, don't share washcloths; or food. MEDICATIONS: -For minor discomfort you may use non-prescription drugs such as acetaminophen. Don't give aspirin to a child for any viral illness. -Non-prescription throat lozenges may help ease discomfort. -Antibiotics or antifungal agents to fight bacterial or fungal infections. Be sure to finish entirecourse of prescribed antibiotics to avoid complications. ACTIVITY: Limited activity is necessary until symptoms disappear. DIET: Extra fluids are necessary. Drink at least 8 glasses of fluid daily, more for high fevers. If swallowing solid food is painful, try a liquid or soft diet for a few days. NOTIFY OFFICE: -The following occur during treatment: Breathing or swallowing difficulty. Fever; severe headache. Thick mucus drainage from the nose. Productive cough that is discolored. Skin rash. Dark urine. Chest pain. [facility] History of Present illness Narrative* ROSARIO Mcmahon - 03/31/2023 11:50 AM EDT This note was created using [employer]. Subjective Caterina Watson is a 27 year old female. HPI 27-year-old female presents for sore throat, ear pain, chills. Patient states she started getting a sore throat about 3 days ago. She is having some right ear pain as well. She denies any congestion, cough. No fevers, but has had some chills. No vomiting or diarrhea. Still able to eat and drink. No past medical history on file. No past surgical history on file. ALLERGIES Seasonal Allergies MEDICATIONS No prescriptions on file. FAMILY HISTORY Problem Relation Age of Onset None Mother None Father Social History Tobacco Use Smoking status: Never Smokeless tobacco: Never Substance Use Topics Alcohol use: Yes Comment: rare Drug use: No Review of Systems Constitutional: Positive for chills. Negative for fever. HENT: Positive for ear pain and sore throat. Negative for congestion. Respiratory: Negative for cough and shortness of breath. Cardiovascular: Negative for chest pain. Gastrointestinal: Negative for diarrhea and vomiting. Objective BP 116/74 Pulse 114 Temp 36.7 C (98 F) (Tympanic) Resp 14 Wt 65.8 kg (145 lb) LMP 01/09/2016 SpO2 96% BMI 22.38 kg/m Physical Exam Vitals and nursing note reviewed. Constitutional: General: She is not in acute distress. Appearance: Normal appearance. She is not toxic-appearing. HENT: Right Ear: Tympanic membrane and ear canal normal. Left Ear: Tympanic membrane and ear canal normal. Nose: Nose normal. Mouth/Throat: Mouth: Mucous membranes are moist. Pharynx: Uvula midline. Posterior oropharyngeal erythema present. No oropharyngeal exudate. Tonsils: Tonsillar exudate present. No tonsillar abscesses. 1+ on the right. 1+ on the left. Comments: 1+ tonsillar swelling bilaterally. She does have right-sided tonsillar exudates. 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 Uvula midline. Handling secretions. Eyes: Conjunctiva/sclera: Conjunctivae normal. Cardiovascular: Rate and Rhythm: Normal rate and regular rhythm. Pulmonary: Effort: Pulmonary effort is normal. Breath sounds: Normal breath sounds. Neurological: Mental Status: She is alert. Assessment and Plan ASSESSMENT/PLAN: 1. Sore throat - ICD9: 462, ICD10: J02.9 - suspect viral - Alere Strep Test negative, no culture pending - Discussed supportive care treatment with fluids, rest and analgesia. - The patient may also use warm salt water gargles, throat lozenges and/or OTC throat spray as needed. 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 Patient advised if she develops difficulty swallowing, handling saliva, go to ER. - STREP A MOLECULAR (POC) Diagnosis and treatment plan were discussed and questions were answered to the patient's satisfaction. Pt acknowledged understanding of concepts and follow up plan. Specific signs and symptoms that would indicate the need for higher level of care were discussed in detail warranting prompt ER evaluation. ROSARIO Mcmahon documented in this encounterSum[facility] History of Present illness Narrative* Heena Barrera APRN.SHANI - 06/25/2022 4:51 PM EDT Patient came in with complaints of severe lower abdominal pain. Patient is bend over visibly uncomfortable. Said its -08/12 and she has not had her appendix or gallbladder out. At this time due to pain level patient is being referred to ER for full evaluation. Patient mother will take and and bother aggred to this. [facility]* Diagnosis Onset Date Resolution Status Dysmenorrhea [facility] Work Phone: Evaluation note* Diagnosis Lower abdominal pain- Primary Abdominal pain, other specified site documented in this encounter [facility]* Diagnosis Onset Date Resolution Status Abdominal pain acute Ectopic [facility] Work Phone: Evaluation note* Diagnosis Onset Date Resolution Status Ectopic acute Ectopic acute H/O oophorectomy acute H/O unilateral salpingectomy acute Postop check noneactive [facility] Work Phone: Evaluation note* Diagnosis Onset Date Resolution Status Contraception management acu te Vaginal discharge acute [facility] Work Phone: Evaluation note* Diagnosis Sore throat- Primary Acute pharyngitis documented in this encounter [facility]* Diagnosis Onset Date Resolution Status Contraception management acu te Status post elective acute Vaginal discharge acute [facility] Work Phone: Evaluation note* Diagnosis Onset Date Resolution Status Contraception management acu te Status post elective acute Vaginal discharge acute Contraception management acu te Routine screening for STI (s exually transmitted infection) acute Vaginal discharge acute [facility] Work Phone: Evaluation note* Diagnosis Strep throat- Primary Streptococcal sore throat Sore throat Acute pharyngitis [facility]* Diagnosis Sore throat- Primary Acute pharyngitis documented in this encounter [facility] note* Diagnosis Onset Date Resolution Status Admit Date Vaginal discharge acute August 10, 2025 3:03pm Possible exposure to sexually transmitted infection noneactive August 10 3:03pm [facility] Work Phone: Hospital Discharge instructions Additional Instructions Please follow-up with your PCP,[facility] Work Phone: Reason for referral (narrative)No reason for referral information availableWWhite [facility] Work Phone: Chief Complaint and Reason for Visit Chief Complaint CONSULT MESTRUAL CYC LE CONCERNS, BV? DYSMENORRHEA Reason for Visit Dysmenorrhea Chief Complaint ECTOPIC Reason for Visit Abdominal pain Ectopic Chief Complaint ECTOPIC ECTOPIC Reason for Visit Abdominal pain Ectopic Chief Complaint ECTOPIC ECTOPIC ECTOPIC Reason for Visit Abdominal pain Ectopic Chief Complaint ECTOPIC ECTOPIC ECTOPIC Ectopic pregnanacy Right ovary removal JUST LEFT OFFICE Reason for Visit Ectopic Ectopic H/O oophorectomy H/O unilateral salpingectomy Postop check Chief Complaint std testing, possibl e bv Reason for Visit Contraception manage ment Vaginal discharge Chief Complaint std testing, possibl e bv sore throat Reason for Visit Contraception manage ment Vaginal discharge Chief Complaint std testing, possibl e bv sore throat SORE THROAT Reason for Visit Contraception manage ment Vaginal discharge Chief Complaint std testing, possibl e bv sore throat SORE THROAT vaginal bleeding Reason for Visit Contraception manage ment Vaginal discharge Chief Complaint sore throat SORE THROAT vaginal bleeding 2 WK POST OP Reason for Visit Contraception manage ment Status post elective Vaginal discharge Chief Complaint 2 WK POST OP possible BV Reason for Visit Contraception manage ment Status post elective Vaginal discharge Contraception management Routine screening for STI (sexually transmitted infection) Vaginal discharge Chief Complaint Admit Date STD testing February 08, 2025 10:2 5am Reason for Visit Admit Date Possible exposure to STD February 08, 2025 10:25am Pap smear for cervical cancer screening February 08, 2025 10:25am Chief Complaint Admit Date Vaginal discharge/odor August 10, 2025 3:03pm Reason for Visit Admit Date Vaginal discharge August 10, 2025 3: 03pm Possible exposure to sexually transmitte d infection August 10, 2025 3:03pm Advance Directives No Advanced Directives Records Found Advance Directive Response Recorded Date/ Time Living Will No December 23 020 6:40pm Power of Orientor No December 23, 2019 6:40pm Advance Directive Response Recorded Date/ Time Living Will No June 25 5:08pm Power of Orientor No June 25 022 5:08pm Advance Directive Response Recorded Date/ Time Living Will No April 01, 2023 3 :47pm Power of Orientor No April 01, 2023 3:47pm Advance Directive Response Recorded Date/ Time Living Will No April 03, 2023 4 :35pm Power of Orientor No April 03, 2023 4:35pm Advance Directive Response Recorded Date/ Time Living Will No April 30, 2023 11:15am Power of Orientor No April 30 11:15am Advance Directive Response Recorded Date/ Time Living Will No April 30, 2023 10:15am Power of Orientor No April 30 10:15am Summary Purpose Family History No Family History Records FoundNo Family History Records FoundNo Family History Records Found Additional Source Comments Goals (unrecognized section and content) Type Care Experience SVDLabor Preferences -labor support person: Wilmer management options preferred: epiduralcut cord/dad catch: yesbreastfeeding: yesPP control planned: []discussed possible routes of delivery and associated risks: []special requests: [] Source Comments (unrecognize d section and content) In the event this informatio n is protected by the Federal Confidentiality of Alcohol and Drug Abuse Patient Records regulations: The Federal rules restrict any use of the information to criminally investigate or prosecute any alcohol or drug abuse patient.[facility] CenterIn the event this information is protected by the Federal Confidentiality of Alcohol and Drug Abuse Patient Records regulations: The Federal rules restrict any use of the information to criminally investigate or prosecute any alcohol or drug abuse patient.[facility] CenterIn the event this information is protected by the Federal Confidentiality of Alcohol and Drug Abuse Patient Records regulations: The Federal rules restrict any use of the information to criminally investigate or prosecute any alcohol or drug abuse patient.[facility] CenterIn the event this information is protected by the Federal Confidentiality of Alcohol and Drug Abuse Patient Records regulations: The Federal rules restrict any use of the information to criminally investigate or prosecute any alcohol or drug abuse patient.[facility] Care Teams (unrecognized sec tion and content) Team Status: Active Member Role Status Dates No Primary Care Physician Family Provider Active No Primary Care Physician Primary Care Provider Active Team Status: Inactive Member Role Status Dates No Primary Care Physician Primary Care Provider, Refer ring Provider Active Marylu Rizzo CNM Attending Provider Active Team Status: Inactive Member Role Status Dates No Primary Care Physician Primary Care Provider Active Marylu Rizzo CNM Attending Provider Active Team Status: Inactive Member Role Status Dates No Primary Care Physician Primary Care Provider Active Dr. Ron Barragan DO Emergency Provider Active Team Status: Inactive Member Role Status Dates No Primary Care Physician Primary Care Provider Active Dr. John Calvo DO Emergency Provider Active Team Status: Inactive Member Role Status Dates No Primary Care Physician Primary Care Provider Active Dr. Ron Barragan DO Attending Provider, Emergency Provider Active Team Status: Inactive Member Role Status Dates No Primary Care Physician Primary Care Provider Active Dr. John Calvo DO Attending Provider, Emergency P tyshawn Active Team Status: Inactive Member Role Status Dates No Primary Care Physician Primary Care Provider Active Dr. Alexx Melvin DO Emergency Provider Active Team Status: Inactive Member Role Status Dates No Primary Care Physician Primary Care Provider, Refer ring Provider Active Dr. Phylicia Johnson DO Attending Provider Activ e Team Status: Inactive Member Role Status Dates No Primary Care Physician Primary Care Provider Active Dr. Phylicia Johnson DO Attending Provider Activ e Team Status: Inactive Member Role Status Dates No Primary Care Physician Primary Care Provider Active Dr. Alexx Melvin DO Emergency Provider Active Dr. Phylicia Johnson DO Attending Provider Activ e Team Status: Inactive Member Role Status Dates No Primary Care Physician Primary Care Provider Active Marylu Rizzo CNM Attending Provider, Referring Pr ovider Active Team Status: Inactive Member Role Status Dates No Primary Care Physician Primary Care Provider Active Start: February 08, 2025 End: February 08, 2025 No Primary Care Physician Referring Provider Active Start: February 08, 2025 End: February 08, 2025 Polina Gracia CARDIAC CATHETERIZATION TECHNICIAN, CARDIAC CATHETERIZATION TECHNICIAN-C Attending Provider Active Start: February 08, 2025 End: February 08, 2025 Team Status: Inactive Member Role Status Dates No Primary Care Physician Primary Care Provider Active Start: February 08, 2025 End: February 08, 2025 Polina Gracia CARDIAC CATHETERIZATION TECHNICIAN, CARDIAC CATHETERIZATION TECHNICIAN-C Attending Provider Active Start: February 08, 2025 End: February 08, 2025 Polina Gracia CARDIAC CATHETERIZATION TECHNICIAN, CARDIAC CATHETERIZATION TECHNICIAN-C Referring Provider Active Start: February 08, 2025 End: February 08, 2025 Team Status: Active Member Role/Relationship Status Dates No Primary Care Physician Primary care physician Activ e Team Status: Inactive Member Role/Relationship Status Dates No Primary Care Physician Primary care physician Activ e Start: August 10, 2025 End: August 10, 2025 No Primary Care Physician Referring Provider Active Start: August 10, 2025 End: August 10, 2025 Polina Gracia NP, CARDIAC CATHETERIZATION TECHNICIAN-C Attending physician Active Start: August 10, 2025 End: August 10, 2025 Team Status: Active Member Role/Relationship Status Dates No Primary Care Physician Primary care physician Activ e Start: August 10, 2025 Polina Gracia NP, CARDIAC CATHETERIZATION TECHNICIAN-C Attending physician Active Start: August 10, 2025 Reason for Visit (unrecogniz ed section and content) Reason Comments Ear Pain Rt and sore throat x 3 days Reason Comments Sore Throat Congestion and press ure x2 days Reason Comments Sore Throat R side worse and swo llen tonsil x 1 week INFORMATION SOURCE (unrecogn ized section and content) DATE CREATED AUTHOR 04/03/2024 [facility] DATE CREATED AUTHOR AUTHOR'S ORGANIZ ATION 07/18/2024 [facility] DATE CREATED AUTHOR AUTHOR'S ORGANIZ ATION 08/30/2025 [facility] [place] FOR RECORDS PERTAINING TO PATIENTS WHO ARE OR HAVE BEEN ENROLLED IN A CHEMICAL DEPENDENCY/SUBSTANCEABUSE PROGRAM, SOME INFORMATION MAY BE OMITTED. This clinical summary was aggregated from multiple sources. Caution should be exercised in using it in the provision of clinical care. This summary normalizes information from multiple sources, and as a consequence, information in this document may materially change the coding, format and clinical context of patient data. In addition, data may be omitted in some cases. CLINICAL DECISIONS SHOULD BE BASED ON THE PRIMARY CLINICAL RECORDS. [employer] [facility]. provides no warranty or guarantee of the accuracy or completeness of information in this document.
[2025-09-01 13:27] LABS: Hematocrit 39.2 % (37-47); Hemoglobin 13.0 g/dL (12.0-15.0); Immature Granulocytes Count 0.010 X10^3/uL (0.0-0.0); Mean Corp Hgb Conc 33.2 g/dL (32-36); Mean Corpuscular Volume 86.9 fL (81-99); Mean Platelet Vol. 11.8 fl (6.2-12.0); NRBC Flagged by Analyzer 0 % (0-5); Platelet Count 223 K/mm3 (150-450); RBC Distribution Width CV 13.5 % (11.6-14.6); RBC Distribution Width SD 42.8 fl (35.1-43.9); Red Blood Count 4.51 M/mm3 (4.2-5.4); White Blood Count 5.9 K/mm3 (4.4-11.0)
[2025-09-01 14:28] LABS: AST(SGOT) 21 U/L (<=31); Alanine Aminotransfer ALT/SGPT 21 U/L (<=34); Albumin, Serum 4.2 g/dL (3.5-5.0); Alkaline Phosphatase 62 U/L (35-104); Anion Gap 8 (5-15); BUN 13 mg/dL (4-19); BUN/Creat Ratio 19.8 RATIO (10-20); Calcium,Total 9.5 mg/dL (7.6-11.0); Carbon Dioxide 26.3 mmol/L (21.0-32.0); Chloride 105 mmol/L (98-108); Ferritin 56 ng/mL (22-378); Globulin 3.0 g/dL (2.2-4.2); Glucose 102 mg/dL (70-99); Potassium 4.1 mmol/L (3.3-5.1); Vitamin B12 328 pg/mL (180-914); Vitamin D,25 Hydroxy 32.9 ng/mL (30-100)
[2025-09-06 09:08] LABS: Zinc, Plasma or Serum 52 ug/dL (44-115)
== END | disposition home or self-care (01) ==
LOC: MTLAB 10:13
PROVIDERS: Referring Provider Physician Assistant; Visit Provider Physician Assistant
DX: L65.0 Telogen effluvium (principal)
CPT/HCPCS: 36415; 80053; 82306; 82607; 82728; 84439; 84443; 84630; 85025